=== PATIENT | male | born 1940 | race Caucasian/White ===

== ENCOUNTER 2018-07-29 12:54 | Emergency (ER) | payer MEDICARE, OTHER, SELFPAY ==
[2018-07-29 12:59] VITALS: BP 150/60; PULSE 73; RESP 16; TEMP 36.3; O2SAT 97
--- NOTE | 2018-07-29 13:25 | DI.CT_ITS ---
SYMPTOMS/DIAGNOSIS: LT FLANK PAIN RENAL COLIC CT: Routine examination was performed. Comparison is 12/18/14. There is a moderate sized hiatal hernia. Lack of IV contrast does limit evaluation of the abdominal and pelvic organs. The unenhanced visualized portions of the liver, spleen, gallbladder, pancreas and adrenal glands are unremarkable. The right kidney shows no evidence of nephrolithiasis, ureterolithiasis or hydronephrosis. There is a 6 mm stone in the distal left ureter approximately 2-3 cm proximal to the ureterovesical junction causing moderate hydronephrosis. There are a few small nonobstructing stones seen in the left kidney. The urinary bladder is intact. The reproductive organs are grossly unremarkable. There is diverticulosis of the colon but no evidence of acute diverticulitis. There is a normal appendix present. The bowel shows no evidence of obstruction or inflammation. Note is made of a large left inguinal hernia containing an unremarkable loop of colon. There is atherosclerosis of the abdominal aorta but no aneurysmal dilatation. No significant abdominal or pelvic adenopathy, ascites or pneumoperitoneum is seen. The bones are intact. There is an old L 5 compression fracture deformity. There is a small fat containing umbilical hernia. IMPRESSION: 1. 6 mm distal left ureteral stone causing moderate hydronephrosis. 2. Left nephrolithiasis. 3. Large left inguinal hernia containing an unremarkable loop of significant colon. The findings were discussed with the emergency department on the date of the examination.
--- NOTE | 2018-07-29 13:26 | ED.GENADUL_ITS ---
Discharge Plan Disposition Patient Disposition: HOME Discharge Details Chief Complaint: FlankPain Clinical Impression: Ureterolithiasis, Kidney stone on left side, Creatinine elevation Reason For Visit: kidney pain Primary Care Provider: Alfredo Burnett ED Provider: Kristofer Baez Home Meds and New Rx's Prescriptions: New tamsulosin [Flomax] 0.4 mg capsule 0.4 mg PO DAILY Qty: 7 RF: 0 Continued aspirin [Ecotrin Low Strength] 81 MG tablet,delayed release (DR/EC) 81 mg PO DAILY RF: 0 saw palmetto fruit 450 MG capsule 450 mg PO BID RF: 0 C-PAP RF: 0 CENTRUM SILVER ULTRA MEN'S TAB 1 EACH tablet 1 ea PO DAILY RF: 0 fluticasone [Flonase] 16 GM spray,suspension 1 - 2 spry NS DAILY PRN Qty: 3 RF: 4 One-Per-Day [place]-3 1 EACH capsule,delayed release(DR/EC) 1 ea PO DAILY RF: 0 potassium chloride 10 MEQ tablet extended release 1 tab PO BID Qty: 180 RF: 4 simvastatin 20 MG tablet 20 mg PO HS Qty: 90 RF: 4 omeprazole 20 MG capsule,delayed release(DR/EC) 20 mg PO QAM Qty: 90 RF: 4 loratadine 10 MG tablet 10 mg PO DAILY Qty: 90 RF: 4 metoprolol tartrate 25 MG tablet 25 mg PO BID Qty: 180 RF: 4 hydrochlorothiazide 12.5 MG tablet 12.5 mg PO DAILY Qty: 90 RF: 4 tramadol 50 MG tablet 50 mg PO HS PRN Qty: 60 RF: 3 acetaminophen [Acetaminophen Pain Relief] 500 mg Tablet 1 tab PO PRN PRNRF: 0 Discontinued meloxicam 7.5 MG tablet 7.5 mg PO DAILY Qty: 90 RF: 4 Discharge Instructions Instructions: Kidney Stones (ED) Additional Instructions: Please take tylenol over the counter - dose according to label. Your kidney function today was decreased. You should have repeat creatinine level checked in a few days. Please contact your primary care physician to arrange follow-up. You should stop taking meloxicam until you discuss this with your doctor. Should pain persist more than 1 week, please follow-up with urology. Return to the ER for any worsening or new concerning symptoms. Referrals: James Rodriguez MD [ [facility] STAFF PHYSICIAN] - Burnett,Alfredo J. [Primary Care Provider] - Medical Decision Making 78-year-old male with history of renal stones, here with left flank pain over the past 4 days. Afebrile. Abdomen benign. CT of the abdomen and pelvis was interpreted by radiology: IMPRESSION: 1. 6 mm distal left ureteral stone causing moderate hydronephrosis. 2. Left nephrolithiasis. 3. Large left inguinal hernia containing an unremarkable loop of significant colon. Urinalysis reviewed and consistent with kidney stone. Will give flomax. Creatinine is elevated today at 1.98. This is increased from 1.16 (11/30/17). Patient with hydrated with 1L of crystaloid. He is tolerating oral intake and was encourage to drink plenty of fluids. Plan for repeat Cr in a few days and follow-up with PCP. Hold meloxicam. I advised that if pain persists over the next few days he should follow-up with urology. Usual and customary discharge instructions were provided. HPI General Mode of arrival: ambulatory . Date/Time Provider Initiated Documentation: 07/29/18 13:02 . Limitations to Documentation: no limitations . Information obtained by: patient . HPI Narrative: 78yo m with history of renal stones, here with left flank pain. Pain is moderate. No modifiers. Pain persistent for the past 4 days. Sharp. Questionable mild intermittent urinary discomfort. No hematuria. No fever. Feels like prior kidney stone. Related Data Home Medications Medication Instructions Recorded Confirmed C-Pap 11/16/12 08/14/14 aspirin [Ecotrin Low Strength] 81 mg PO DAILY tab-cap 11/16/12 07/29/18 saw palmetto fruit 450 mg PO BID 11/16/12 07/29/18 Centrum Silver Ultra Men's Tab 1 ea PO DAILY 01/12/14 07/29/18 fluticasone [Flonase] 1 - 2 spry NS DAILY PRN #3 bottle 07/28/14 07/29/18 One-Per-Day [place]-3 1 ea PO DAILY 08/06/15 07/29/18 hydrochlorothiazide 12.5 mg PO DAILY #90 tab-cap 08/15/17 07/29/18 loratadine 10 mg PO DAILY #90 tab-cap 08/15/17 07/29/18 metoprolol tartrate 25 mg PO BID #180 tab-cap 08/15/17 07/29/18 omeprazole 20 mg PO QAM #90 tab-cap 08/15/17 07/29/18 potassium chloride 1 tab PO BID #180 tab-cap 08/15/17 07/29/18 simvastatin 20 mg PO HS #90 tab-cap 08/15/17 07/29/18 tramadol 50 mg PO HS PRN #60 tab-cap 18 07/29/18 acetaminophen [Acetaminophen Pain 1 tab PO PRN PRN 07/29/18 07/29/18 Relief] tamsulosin [Flomax] 0.4 mg PO DAILY #7 cap 07/29/18 Previous Rx's Medication Instructions Recorded hydrochlorothiazide 12.5 mg PO DAILY #90 tab-cap 08/15/17 loratadine 10 mg PO DAILY #90 tab-cap 08/15/17 metoprolol tartrate 25 mg PO BID #180 tab-cap 08/15/17 omeprazole 20 mg PO QAM #90 tab-cap 08/15/17 potassium chloride 1 tab PO BID #180 tab-cap 08/15/17 simvastatin 20 mg PO HS #90 tab-cap 08/15/17 tramadol 50 mg PO HS PRN #60 tab-cap 08/15/17 tamsulosin [Flomax] 0.4 mg PO DAILY #7 cap 07/29/18 Allergies Allergy/AdvReac Type Severity Reaction Status Date / Time birch Allergy Unknown Unverified 08/15/17 13:50 clindamycin AdvReac Unverified 07/29/18 13:05 DUST Allergy Unknown Uncoded 12/18/14 15:31 MOLDS AND SMUT Allergy Unknown Uncoded 12/18/14 15:31 PINE TREE Allergy Unknown Uncoded 12/18/14 15:31 RAGWEED Allergy Unknown Uncoded 12/18/14 15:31 General Stated Complaint: FlankPain MALLIKA: 3 Review of Systems Review of Systems All systems reviewed & are unremarkable except as noted in HPI and below Constitutional Denies fever(s) Gastrointestinal Reports nausea (intermittent) and Denies vomiting Genitourinary Reports as per HPI Musculoskeletal Reports back pain (chronic low back) PFSH Medical History HTN (hypertension) (Chronic) Kidney stones (Chronic) Surgical History Extraction of cataract HERNIA REPAIR Open Carpal Tunnel release (08/14/14) Family History Mother Diabetes Essential hypertension Heart disease Father Essential hypertension Personal history of malignant neoplasm Heart disease Hyperlipidemia Asthma Grandfather No problems noted. Grandfather No problems noted. Grandmother Essential hypertension Personal history of malignant neoplasm Heart disease Stroke Grandmother No problems noted. Sister Essential hypertension Hyperlipidemia Social History Smoking/Tobacco Use Status: Former Tobacco Use Exam Const General: cooperative and no acute distress HENMT Head: normocephalic and atraumatic Mouth: moist mucous membranes Eyes Conjunctivae: normal conjunctivae Sclera: normal sclerae EOM: EOM intact bilaterally Neck Neck: trachea midline and supple Resp Auscultation: clear to auscultation bilaterally, no rales, no rhonchi and no wheezes Cardio Jugular venous pressure: no JVD Rate: regular rate and not tachycardic Rhythm: regular rhythm GI Palpation: soft, not firm, no guarding, no masses, not rigid and nontender Back/Spine/Pelvis Back: CVA tenderness (left ) Skin General skin exam: no rashes or lesions noted Neuro General: alert, awake, oriented x3 and tone normal Extrem General: no edema Psych Appearance: grossly normal Mental Status: mental status grossly normal Speech and Movement: speech and movement normal Course Vital Signs Temperature 36.3 C L 07/29/18 12:59 Pulse 73 07/29/18 12:59 Respiratory Rate 16 07/29/18 12:59 Blood Pressure 150/60 H 07/29/18 12:59 Pulse Oximetry 97 07/29/18 12:59 Temperature 36.3 C L 07/29/18 12:59 Temperature Source Temporal Artery Scan 07/29/18 12:59 Pulse 73 07/29/18 12:59 Respiratory Rate 16 07/29/18 12:59 Blood Pressure 150/60 H 07/29/18 12:59 Pulse Oximetry 97 07/29/18 12:59 Oxygen Delivery Method Room Air 07/29/18 12:59 Oxygen Flow Rate 0 07/29/18 12:59 Pain Level 9 07/29/18 12:59
[2018-07-29] MEDS: Ketorolac 30 MG/ML VIAL (13:43)
[2018-07-29] MEDS: Lactated Ringers 1,000 ML 125 ML IV (13:44)
--- NOTE | 2018-07-29 13:47 | NUR.NOTE ---
patient medicated per MD order Nursing Note:
[2018-07-29 14:00] LABS: Abs Immature Grans 0.05 k/cumm (0.0-0.09); Absolute Basophil Count 0.03 k/cumm (0.0-0.2); Absolute Eosinophil Count 0.17 k/cumm (0.0-0.7); Absolute Monocyte Count 1.21 k/cumm (0.11-0.7); Absolute Neutrophil Count 9.29 k/cumm (1.2-6.7); Basophils % 0.2; Bilirubin Negative (Negative); Blood Small (Negative); Clarity Clear; Eosinophils % 1.3; Glucose Negative (Negative); HCT 41.1 % (40.0-50.0); HGB 14.1 g/dL (13.5-17.5); Immature Grans % 0.4; Ketones Negative (Negative); Leukocyte Esterase Negative (Negative); Lymphocytes % 15.6; Mean Corp. HGB Concentration 34.3 g/dL (32.0-36.0); Mean Corpuscular Volume 84.6 fL (80-95); Mean Platelet Volume 12.3 fL (8.0-11.0); Monocytes % 9.5; Nitrite Negative (Negative); Platelet Count 190 x1000/uL (130-400); RBC 4.86 m/cumm (4.50-6.00); RBC Distribution Width 13.3 % (11.8-14.1); Specific Gravity 1.015 (1.005-1.025); Urobilinogen 0.2 EU/dL (Up TO 0.2); White Blood Cell Count 12.73 k/cumm (4.4-10.8); pH 5.5 (5-8)
[2018-07-29 14:02] LABS: Absolute Lymphocyte Count 1.99 k/cumm (1.2-3.4)
--- NOTE | 2018-07-29 14:09 | NUR.NOTE ---
pain decreased to 1/10 Nursing Note:
[2018-07-29 14:10] VITALS: BP 144/75; PULSE 66; RESP 16; TEMP 37.1; O2SAT 96
[2018-07-29 14:19] LABS: Epithelial Cells Rare HPF (Negative)
[2018-07-29 14:20] LABS: ALT 33 U/L (12-78); AST 25 U/L (15-37); Albumin 3.5 g/dL (3.4-5.0); Alkaline Phosphatase 87 U/L (46-116); Anion Gap 10.7 mmol/L (3-11); BUN 21 mg/dL (7-18); Bacteria Few HPF (Negative); C & S Indicated? Yes; CO2 24.3 mmol/L (21.0-32.0); CREATININE 1.98 mg/dL (0.70-1.30); Calcium 9.5 mg/dL (8.5-10.1); Casts 0-2 Fine Granular LPF (Negative); Chloride 99 mmol/L (98-107); Crystals Negative HPF (Negative); Estimated GFR 32.69 (mL/min/1.73m2); Glucose 105 mg/dL (70-100); Mucus Negative (Negative); Potassium 3.9 mmol/L (3.5-5.1); Sodium 134 mmol/L (136-145); Total Protein 8.2 g/dL (6.4-8.2)
[2018-07-29 15:16] VITALS: BP 142/80; PULSE 61; RESP 14; TEMP 36.9; O2SAT 95
--- NOTE | 2018-07-29 15:17 | NUR.NOTE ---
patient reports pain 1/10 no nausea, will continue to monitor Nursing Note:
[2018-07-29] MEDS: Tamsulosin 0.4 MG CAPCR PO (15:29)
--- NOTE | 2018-07-29 16:01 | NUR.NOTE ---
IV dc'd, patient received discharge and follow up instruction per MD order. Nursing Note:
== END 2018-07-29 16:05 | disposition home or self-care (01) ==
PROVIDERS: Emergency Provider Student in an Organized Health Care Education/Training Program; PCP Family Medicine
DX: N13.2 Hydronephrosis with renal and ureteral calculous obstruction (principal); K40.90 Unilateral inguinal hernia, without obstruction or gangrene, not specified as recurrent; R94.4 Abnormal results of kidney function studies; Z87.442 Personal history of urinary calculi; I10 Essential (primary) hypertension
CPT/HCPCS: 36415; 80053; 96361; 96374; 99284; 74176; 81003; 81015; 85025; 87086; J1885

== ENCOUNTER 2018-08-01 14:17 | Outpatient (CLI) | payer MEDICARE, OTHER, SELFPAY ==
[2018-08-01 14:51] LABS: CREATININE 1.83 mg/dL (0.70-1.30)
== END 2018-08-01 14:37 ==
PROVIDERS: Nurse Practitioner Gerontology; PCP Family Medicine; Visit Provider Student in an Organized Health Care Education/Training Program
DX: R79.89 Other specified abnormal findings of blood chemistry (principal); N17.9 Acute kidney failure, unspecified; N20.0 Calculus of kidney; I12.9 Hypertensive chronic kidney disease with stage 1 through stage 4 chronic kidney disease, or unspecified chronic kidney disease
CPT/HCPCS: 36415; 99204; 99215; 82565

== ENCOUNTER 2018-08-05 09:00 | Outpatient (CLI) | payer MEDICARE, OTHER, SELFPAY | END 2018-08-05 09:20 | PROVIDERS: PCP Family Medicine; Visit Provider Urology | DX: N20.0 Calculus of kidney (principal); I10 Essential (primary) hypertension | CPT/HCPCS: 99213 ==

== ENCOUNTER 2018-09-13 00:04 | Outpatient (CLI) | payer MEDICARE, OTHER, SELFPAY ==
--- NOTE | 2018-09-13 14:24 | DI.US_ITS ---
SYMPTOM/DIAGNOSIS: MONITOR STONES, ? RESIDUAL HYDRONEPHROSIS, LT SIDED KIDNEY STONE, N20.0 RENAL ULTRASOUND: Routine examination. Comparison CT scan is 07/29/18. The right kidney measures 11.1 cm. long. No renal mass, calculus or obstruction is seen. There is blood flow seen to the right kidney. The left kidney measures 11.6 cm. long. No renal mass, calculus or obstruction is identified. There is blood flow seen to the left kidney. The prevoid urinary bladder volume is 90 cc's. There is a postvoid urinary bladder volume of 65 cc's. Both ureteral jets were visualized. There is a 1 cm. echogenic shadowing focus in the urinary bladder suspicious for a bladder stone. The prostatic volume is 45 cc's. IMPRESSION: Findings suspicious for a 1 cm. bladder stone. No evidence of hydronephrosis.
== END 2018-09-13 00:24 ==
PROVIDERS: PCP Family Medicine; Visit Provider Urology
DX: N21.0 Calculus in bladder
CPT/HCPCS: 76770; 99213

== ENCOUNTER 2019-05-09 00:33 | Outpatient (CLI) | payer MEDICARE, OTHER, SELFPAY ==
--- NOTE | 2019-05-09 14:32 | DI.US_ITS ---
EXAM: US RENAL CLINICAL HISTORY: monitor stones N21.0 CALCULUS IN BLADDER TECHNIQUE: Ultrasound performed using standard protocol. US renal from 09/13/2018 FINDINGS: The right kidney measures 10.6 cm in length. The left kidney measures 11.8 cm in length. No hydron ephrosis or nephrolithiasis is seen. There is no perinephric collection. No cyst or mass is identif ied. The prevoid bladder volume measures 74 cc. A 14 millimeter stone is noted in the bladder. The postvoid bladder volume measures 50 cc. The prostate is it is enlarged with a volume of 68 cc. IMPRESSION: 14 millimeter bladder stone. No evidence of hydronephrosis or nephrolithiasis.
== END 2019-05-09 00:53 ==
PROVIDERS: PCP Family Medicine; Visit Provider Urology
DX: N21.0 Calculus in bladder (principal); N40.0 Benign prostatic hyperplasia without lower urinary tract symptoms
CPT/HCPCS: 76770; 99213

== ENCOUNTER 2019-06-20 12:34 | Emergency (ER) | payer MEDICARE, OTHER, SELFPAY ==
[2019-06-20 12:48] VITALS: BP 141/73; PULSE 61; TEMP 36.7; O2SAT 96
--- NOTE | 2019-06-20 14:11 | W.ED.GENAD ---
Discharge Plan Disposition Patient Disposition: HOME Condition: Stable Discharge Details Chief Complaint: Sorethroat Clinical Impression: Sinusitis Primary Care Provider: Alfredo Burnett ED Provider: Elba Smiley Home Meds and New Rx's Prescriptions: New amoxicillin-pot clavulanate [Augmentin] 875-125 mg tablet 1 tab PO BID 10 Days Qty: 20 RF: 0 Continued omeprazole 20 mg capsule,delayed release(DR/EC) 20 mg PO QAM Qty: 90 RF: 4 potassium chloride 10 mEq tablet extended release 10 meq PO BID Qty: 180 RF: 4 simvastatin 20 mg tablet 20 mg PO HS Qty: 90 RF: 4 hydrochlorothiazide 12.5 mg tablet 12.5 mg PO DAILY Qty: 90 RF: 4 loratadine 10 mg tablet 10 mg PO DAILY Qty: 90 RF: 4 metoprolol tartrate 25 mg tablet 25 mg PO BID Qty: 180 RF: 4 aspirin [Ecotrin Low Strength] 81 MG tablet,delayed release (DR/EC) 81 mg PO DAILY RF: 0 saw palmetto fruit 450 MG capsule 450 mg PO BID RF: 0 C-PAP RF: 0 CENTRUM SILVER ULTRA MEN'S TAB 1 EACH tablet 1 ea PO DAILY RF: 0 fluticasone propionate [Flonase] 16 GM spray,suspension 1 - 2 spry NS DAILY PRN Qty: 3 RF: 4 tramadol 50 mg tablet 50 mg PO HS PRN Qty: 10 RF: 0 Discharge Instructions Instructions: Sinusitis (ED) Additional Instructions: Drink plenty of fluids and get plenty of rest. Take antibiotics until finished. Follow-up with your primary care doctor within the next week for reevaluation. Return to the emergency department if you develop any worsening or new concerning symptoms. Discharge Data Discharge Date/Time-TO BE ENTERED AT DEPARTURE: 06/20/19 14:26 Discharge Physician: Elba Smiley Medical Decision Making 79-year-old male presents with sore throat, right ear pain, nasal congestion and runny nose for the past 2 weeks. Unknown fevers. Some mild headache and cough but no shortness of breath or neck pain. Rapid strep negative on arrival. Normal oxygen saturation and respiratory rate. Afebrile. Patient appears nontoxic. Normal ear exam bilaterally. Normal oropharynx. Right frontal and maxillary sinus tenderness. No lymphadenopathy. Lungs clear. Discussed with patient that as his symptoms are lingering, he may have a bacterial sinus infection. He was advised to use saline nose spray and take the antibiotics until finished. Advised to follow-up with his primary care doctor. Usual and customary return precautions given prior to discharge. Medical Records Medical records reviewed: Yes I reviewed the patient's medical records. HPI General Mode of arrival: ambulatory. Date/Time Provider Initiated Documentation: 06/20/19 12:39. Limitations to Documentation: no limitations. Information obtained by: patient. HPI Narrative: Patient is an 79-year-old male who presents the ED with a complaint of sore throat, right ear pain, right facial pain, sinus congestion and runny nose for the past 2 weeks. Denies any relief with [id number] medications. Denies any known fever. Related Data Home Medications Medication Instructions Recorded Confirmed C-Pap 11/16/12 08/16/18 aspirin [Ecotrin Low Strength] 81 mg PO DAILY tab-cap 11/16/12 08/16/18 saw palmetto fruit 450 mg PO BID 11/16/12 06/20/19 Centrum Silver Ultra Men's Tab 1 ea PO DAILY 01/12/14 08/16/18 fluticasone propionate [Flonase] 1 - 2 spry NS DAILY PRN #3 bottle 07/28/14 08/16/18 hydrochlorothiazide 12.5 mg tablet 12.5 mg PO DAILY #90 tab-cap 08/16/18 06/20/19 loratadine 10 mg tablet 10 mg PO DAILY #90 tab-cap 08/16/18 06/20/19 metoprolol tartrate 25 mg tablet 25 mg PO BID #180 tab-cap 08/16/18 06/20/19 omeprazole 20 mg capsule,delayed 20 mg PO QAM #90 tab-cap 08/16/18 06/20/19 release potassium chloride 10 mEq 10 meq PO BID #180 tab-cap 08/16/18 06/20/19 tablet,extended release simvastatin 20 mg tablet 20 mg PO HS #90 tab-cap 08/16/18 06/20/19 tramadol 50 mg tablet 50 mg PO HS PRN #10 tab-cap 05/24/19 06/20/19 amoxicillin-pot clavulanate 1 tab PO BID 10 Days #20 tab 06/20/19 [Augmentin] Previous Rx's Medication Instructions Recorded hydrochlorothiazide 12.5 mg tablet 12.5 mg PO DAILY #90 tab-cap 08/16/18 loratadine 10 mg tablet 10 mg PO DAILY #90 tab-cap 08/16/18 metoprolol tartrate 25 mg tablet 25 mg PO BID #180 tab-cap 08/16/18 omeprazole 20 mg capsule,delayed 20 mg PO QAM #90 tab-cap 08/16/18 release potassium chloride 10 mEq 10 meq PO BID #180 tab-cap 08/16/18 tablet,extended release simvastatin 20 mg tablet 20 mg PO HS #90 tab-cap 08/16/18 tramadol 50 mg tablet 50 mg PO HS PRN #10 tab-cap 05/24/19 amoxicillin-pot clavulanate 1 tab PO BID 10 Days #20 tab 06/20/19 [Augmentin] Allergies Allergy/AdvReac Type Severity Reaction Status Date / Time birch Allergy Unknown Unverified 06/20/19 13:00 clindamycin AdvReac DIARRHEA Unverified 06/20/19 13:00 DUST Allergy Unknown Uncoded 06/20/19 13:00 MOLDS AND SMUT Allergy Unknown Uncoded 06/20/19 13:00 PINE TREE Allergy Unknown Uncoded 06/20/19 13:00 RAGWEED Allergy Unknown Uncoded 06/20/19 13:00 General Stated Complaint: Sorethroat MALLIKA: 4 Review of Systems All systems reviewed & are unremarkable except as noted in HPI and below Constitutional Constitutional: Reports as per HPI, Denies chills and Denies fever(s) Eyes Eyes: Denies blurry vision ENT Ears, Nose, Mouth, and Throat: Denies dizziness, Reports nasal congestion, Reports nasal discharge, Reports sore throat and Denies throat swelling Cardiovascular Cardiovascular: Denies chest pain and Denies dyspnea Respiratory Respiratory: Denies cough and Denies dyspnea Gastrointestinal Gastrointestinal: Denies abdominal pain, Denies diarrhea and Denies vomiting Genitourinary Genitourinary: Denies hematuria and Denies dysuria Musculoskeletal Musculoskeletal: Denies back pain and Denies numbness Integumentary/Breasts Skin/Breast: Denies lesions and Denies rash Neurologic Neurologic: Denies dizziness, Denies focal weakness and Denies numbness Allergic/Immunologic Allergic/Immunologic: Denies throat swelling [facility] Medical History (Updated 05/09/19 @ 15:33 by James Rodriguez MD) Bladder stone (Acute) HTN (hypertension) (Chronic) Kidney stones (Chronic) Surgical History Extraction of cataract B/L HERNIA REPAIR X 2 Open Carpal Tunnel release (08/14/14) LEFT/DR LUIS Social History (Updated 08/19/18 @ 08:38 by Jocy Rivera) Smoking/Tobacco Use Status: Former Tobacco Use Alcohol Intake: never Drug use: Never Caregiver/Support person: No Household members: none Pets and animals: No Sexually active: No Do you think of yourself as: straight/heterosexual Current gender identity: male What is your relationship status?: How often do you talk on the phone with friends or family?: three or more times per week How often do you get together with friends or relatives?: twice per week How often do you attend episcopal or taoism services?: 4 or more times per year Do you belong to any clubs or organized social groups?: yes Panel score (0-1 are the most socially isolated patients): 3 Duration: < 15 minutes/day Frequency: decline to answer Barby/Congregation: No preference Special barby needs: No Do you feel safe in your relationship?: Yes Exam Const General: cooperative, healthy appearing and no acute distress HENMT Head: normal to inspection Ears: hearing grossly normal bilaterally, external ears normal and TM's normal bilaterally Face and sinus: sinus tenderness frontal and maxillary Mouth: oral mucosae normal Throat: posterior oropharynx normal Eyes General: appearance normal, both eyes and all related structures EOM: EOM intact bilaterally Neck Neck: normal visual inspection and No submandibular swelling Lymphatic: no lymphadenopathy noted Resp Effort & Inspection: normal respiratory effort and able to speak in complete sentences Auscultation: clear to auscultation bilaterally Cardio Rate: regular rate Rhythm: regular rhythm Skin General skin exam: no rashes or lesions noted Neuro General: alert, awake and oriented x3 Cognition: normal cognition Speech: speech normal Motor: muscle tone normal throughout Sensory Exam: no sensory deficits noted Extrem General: normal to inspection, full ROM, normal capillary refill, no calf tenderness bilaterally and no edema Psych Appearance: grossly normal Mental Status: mental status grossly normal Speech and Movement: speech and movement normal Affect: normal affect Course Vital Signs Vital signs: Vital Signs Temperature 98.1 F 06/20/19 12:48 Pulse 61 06/20/19 12:48 Blood Pressure 141/73 H 06/20/19 12:48 Pulse Oximetry 96 06/20/19 12:48 Temperature 98.1 F 06/20/19 12:48 Temperature Source Skin 06/20/19 12:48 Pulse 61 06/20/19 12:48 Respiratory Effort Non-Labored 06/20/19 12:54 Blood Pressure 141/73 H 06/20/19 12:48 Blood Pressure Position Sitting 06/20/19 12:48 Pulse Oximetry 96 06/20/19 12:48 Oxygen Delivery Method Room Air 06/20/19 12:48 Oxygen Flow Rate 0 06/20/19 12:48 Pain Level 5 06/20/19 12:48 Lab/Test Results Lab/Test Results: 06/20/19 13:04 Pharynx Streptococcus Screen ([facility]RA) - Pending POC Strep Test-DRE(Rapid) Start: 06/20/19 13:02 Freq: .Rapid Strep Test Status: Active Protocol: Document 06/20/19 13:02 (Rec: 06/20/19 13:03 [id number]) Strep test-DRE(Rapid)-POC POC-Strep test-DRE (Rapid) Negative POC-Strep test-DRE (Rapid) Negative
== END 2019-06-20 14:26 | disposition home or self-care (01) ==
PROVIDERS: Emergency Provider Physician Assistant; PCP Family Medicine
DX: J01.90 Acute sinusitis, unspecified (principal); I10 Essential (primary) hypertension
CPT/HCPCS: 87880; 99283; 87081

== ENCOUNTER → 2019-08-01 15:12 | Outpatient (BNVA) | payer MEDICARE, OTHER, SELFPAY | PROVIDERS: PCP Family Medicine; Referring Provider Family Medicine; Visit Provider Urology | DX: N20.0 Calculus of kidney | CPT/HCPCS: 99213 ==

== ENCOUNTER 2020-02-27 02:39 | Outpatient (CLI) | payer MEDICARE, OTHER, SELFPAY ==
[2020-02-27 15:45] LABS: COMMENT (LAB VIEW ONLY) 180.42 mg/dL; Microalb ug/mg Crea 12.5 ug/mg Cr
[2020-02-27 16:37] LABS: CREATININE 0.98 mg/dL (0.70-1.30); Calculated LDL 29 mg/dL (<100); Cholesterol 115 mg/dL (<200); Glucose 93 mg/dL (74-106); HDL Cholesterol 49 mg/dL (40-60); Potassium 3.9 mmol/L (3.5-5.1); Triglyceride 188 mg/dL (<150)
== END 2020-02-27 02:59 ==
PROVIDERS: PCP Family Medicine; Visit Provider Family Medicine
DX: E78.5 Hyperlipidemia, unspecified (principal); I10 Essential (primary) hypertension; E11.65 Type 2 diabetes mellitus with hyperglycemia
CPT/HCPCS: 36415; 80061; 82947; 82043; 82565; 82570; 84132

== ENCOUNTER 2020-06-25 03:51 | Outpatient (CLI) | payer MEDICARE, OTHER, SELFPAY ==
--- NOTE | 2020-06-25 07:30 | DI.US_ITS ---
EXAM: US RENAL CLINICAL HISTORY: BLADDER STONE MONITORING.N21.0. TECHNIQUE: [place] scale, color and spectral Doppler were used. US US RENAL from 05/09/2019 FINDINGS: Renal size in cm: Right: 11.0. Left: 11.6. Echogenicity: Normal. Hydronephrosis: No. Cyst or mass: No. Nephrolithiasis: There is a 0.9 cm echogenic shadowing focus in the superior pole of the left kidney suspicious for nonobstructing stone. Other findings: There is increased echogenicity of the liver suggesting fatty infiltration. Bladder:At least 3 echogenic and shadowing foci are seen within the urinary bladder. The largest nolan sures 1.5 cm. Ureteral jets: Right: Not visualized on this examination. Left: Not visualized on this examination. Prevoid vol:53 cc Postvoid vol:34 cc Prostate: 58 cc Renal color flow: Symmetric and within normal limits. IMPRESSION: 1. Urinary bladder stones. The largest measures 1.5 cm. 2. Enlarged prostate gland. 3. Left nephrolithiasis. No hydronephrosis. 4. Fatty liver. DATA REPOSITORY:
== END 2020-06-25 04:11 ==
PROVIDERS: PCP Family Medicine; Visit Provider Urology
DX: N21.0 Calculus in bladder (principal); N40.0 Benign prostatic hyperplasia without lower urinary tract symptoms; N20.0 Calculus of kidney; K76.0 Fatty (change of) liver, not elsewhere classified
CPT/HCPCS: 76770

== ENCOUNTER → 2020-06-28 14:05 | Outpatient (BNVA) | payer MEDICARE, OTHER, SELFPAY | PROVIDERS: PCP Family Medicine; Referring Provider Family Medicine; Visit Provider Nurse Practitioner Gerontology | DX: N21.0 Calculus in bladder (principal); I10 Essential (primary) hypertension | CPT/HCPCS: 99213 ==

== ENCOUNTER 2020-08-21 11:20 | Emergency (ER) | payer MEDICARE, OTHER, SELFPAY ==
[2020-08-21] VITALS (10 sets, daily range): BP systolic 99–146; BP diastolic 60–73; PULSE 60–70; RESP 11–21; TEMP 36.5–36.8; O2SAT 92–96
--- NOTE | 2020-08-21 11:52 | ED.GENADUL_ITS ---
Discharge Plan Disposition Patient Disposition: HOME Condition: Stable Discharge Details Clinical Impression: Rib pain on right side Primary Care Provider: Alfredo Burnett ED Provider: Kristofer Baez Home Meds and New Rx's Prescriptions: Continued tramadol 50 mg tablet 50 mg PO Q6H PRN (Reason: pain) Qty: 50 RF: 0 hydrochlorothiazide 12.5 mg tablet 12.5 mg PO DAILY Qty: 90 RF: 4 loratadine 10 mg tablet 10 mg PO DAILY Qty: 90 RF: 4 metoprolol tartrate 25 mg tablet 25 mg PO BID Qty: 180 RF: 4 omeprazole 20 mg capsule,delayed release(DR/EC) 20 mg PO QAM Qty: 90 RF: 4 potassium chloride 10 mEq tablet extended release 10 meq PO BID Qty: 180 RF: 4 simvastatin 20 mg tablet 20 mg PO HS Qty: 90 RF: 4 tamsulosin 0.4 mg capsule 0.4 mg PO DAILY Qty: 10 RF: 0 aspirin [Ecotrin Low Strength] 81 MG tablet,delayed release (DR/EC) 81 mg PO DAILY RF: 0 saw palmetto 450 MG capsule 450 mg PO BID RF: 0 C-PAP RF: 0 CENTRUM SILVER ULTRA MEN'S TAB 1 EACH tablet 1 ea PO DAILY RF: 0 fluticasone propionate [Flonase] 16 GM spray,suspension 1 - 2 spry NS DAILY PRN Qty: 3 RF: 4 Discharge Instructions Additional Instructions: Please take your medication as prescribed. Please take ibuprofen over the counter. Take 600mg by mouth every 6 hours as needed for pain. Please contact your primary care physician to arrange follow-up this week. Return to the ER immediately for any worsening or new concerning symptoms. Referrals: Alfredo Burnett. [Primary Care Provider] - Medical Decision Making 80-year-old male presents with chief complaint of lower lateral mid back pain. Patient tender over his posterior lateral lower ribs. No rash. Abdominal exam benign. Bedside [id number] ultrasound was performed to visualize his gallbladder and kidney. No pericholecystic fluid, no cholelithiasis, normal gallbladder wall thickening. No fluid in Morison's pouch. Right kidney nondilated with no obvious kidney stones. Screening labs reviewed and nondiagnostic. Normal LFTs and lipase. I discussed diagnostic imaging the patient and reviewed risk benefits. He understands limitations of bedside [id number] ultrasound. He notes preference to monitor symptoms over the next few days and follow-up with his primary. He provided informed refusal of further diagnostic testing at this time including imaging. He understands there is pain were to persist additional diagnostics are certainly indicated. He has follow-up scheduled this week with his primary care physician. I did encourage him to keep this appointment and to return immediately should have any worsening or new concerning symptoms. HPI General Mode of arrival: ambulatory . Date/Time Provider Initiated Documentation: 08/21/20 11:22 . Limitations to Documentation: no limitations . Information obtained by: patient . HPI Narrative: 80-year-old male with history of remote kidney stone, low back pain, chronic pain syndrome, here with chief complaint of right lateral lower rib pain. Pain is mild to moderate and has persisted over the past week or so. Patient does not recall any specific injury. He denies associated rash or shortness of breath. No chest pain. He does note that he is concerned it could be his gallbladder. He denies abdominal pain or nausea vomiting. Related Data Home Medications Medication Instructions Recorded Confirmed C-Pap 11/16/12 06/28/20 aspirin [Ecotrin Low Strength] 81 mg PO DAILY tab-cap 11/16/12 08/21/20 saw palmetto 450 mg PO BID 11/16/12 08/21/20 Centrum Silver Ultra Men's Tab 1 ea PO DAILY 01/12/14 08/21/20 fluticasone propionate [Flonase] 1 - 2 spry NS DAILY PRN #3 bottle 07/28/14 08/21/20 tamsulosin 0.4 mg capsule 0.4 mg PO DAILY #10 cap 08/01/19 08/21/20 hydrochlorothiazide 12.5 mg tablet 12.5 mg PO DAILY #90 tab-cap 08/20/19 08/21/20 loratadine 10 mg tablet 10 mg PO DAILY #90 tab-cap 08/20/19 08/21/20 metoprolol tartrate 25 mg tablet 25 mg PO BID #180 tab-cap 08/20/19 08/21/20 omeprazole 20 mg capsule,delayed 20 mg PO QAM #90 tab-cap 08/20/19 08/21/20 release potassium chloride 10 mEq 10 meq PO BID #180 tab-cap 08/20/19 08/21/20 tablet,extended release simvastatin 20 mg tablet 20 mg PO HS #90 tab-cap 08/20/19 08/21/20 tramadol 50 mg tablet 50 mg PO Q6H PRN #50 tab 06/28/20 08/21/20 Previous Rx's Medication Instructions Recorded tamsulosin 0.4 mg capsule 0.4 mg PO DAILY #10 cap 08/01/19 hydrochlorothiazide 12.5 mg tablet 12.5 mg PO DAILY #90 tab-cap 08/20/19 loratadine 10 mg tablet 10 mg PO DAILY #90 tab-cap 08/20/19 metoprolol tartrate 25 mg tablet 25 mg PO BID #180 tab-cap 08/20/19 omeprazole 20 mg capsule,delayed 20 mg PO QAM #90 tab-cap 08/20/19 release potassium chloride 10 mEq 10 meq PO BID #180 tab-cap 08/20/19 tablet,extended release simvastatin 20 mg tablet 20 mg PO HS #90 tab-cap 08/20/19 tramadol 50 mg tablet 50 mg PO Q6H PRN #50 tab 06/28/20 Allergies Allergy/AdvReac Type Severity Reaction Status Date / Time birch Allergy Unknown Verified 08/21/20 11:29 chocolate flavor Allergy Diarrhea Unverified 08/21/20 11:30 clindamycin AdvReac DIARRHEA Verified 08/21/20 11:29 DUST Allergy Unknown Uncoded 08/21/20 11:29 MOLDS AND SMUT Allergy Unknown Uncoded 08/21/20 11:29 PINE TREE Allergy Unknown Uncoded 08/21/20 11:29 RAGWEED Allergy Unknown Uncoded 08/21/20 11:29 General Stated Complaint: GenMedical MALLIKA: 3 Review of Systems All systems reviewed & are unremarkable except as noted in HPI and below Constitutional Constitutional: Denies fever(s) Gastrointestinal Gastrointestinal: Reports as per HPI, Denies melena and Denies hematochezia Genitourinary Genitourinary: Denies hematuria and Denies dysuria PFSH Medical History Bladder stone Dental caries HTN (hypertension) Kidney stones Surgical History Extraction of cataract B/L HERNIA REPAIR X 2 Open Carpal Tunnel release (08/14/14) LEFT/DR LUIS Family History Mother Diabetes Essential hypertension Heart disease Father Essential hypertension Personal history of malignant neoplasm COLON/SKIN Heart disease Hyperlipidemia Asthma Maternal Grandmother Essential hypertension Heart disease Stroke Esophageal cancer Sister Essential hypertension Hyperlipidemia Social History Smoking/Tobacco Use Status: Former Tobacco Use Smoking risk assessment performed?: Yes Alcohol Intake: never Drug use: Never Substance use type: does not use Caregiver/Support person: No Household members: none Pets and animals: No Sexually active: No Do you think of yourself as: straight/heterosexual Current gender identity: male What is your relationship status?: How often do you talk on the phone with friends or family?: three or more times per week How often do you get together with friends or relatives?: twice per week How often do you attend hinduism or rastafarian services?: 4 or more times per year Do you belong to any clubs or organized social groups?: yes Panel score (0-1 are the most socially isolated patients): 3 Duration: < 15 minutes/day Frequency: decline to answer Barby/Sikh: No preference Special barby needs: No Do you feel safe at home: Yes Do you feel safe in your relationship?: Yes Exam Const General: cooperative and no acute distress HENMT Mouth: moist mucous membranes Eyes Conjunctivae: normal conjunctivae Sclera: normal sclerae Neck Neck: trachea midline and supple Chest Chest: no crepitus and tenderness rib (Right lower posterior lateral) Resp Auscultation: clear to auscultation bilaterally, no rales, no rhonchi and no wheezes Cardio Rate: regular rate and not tachycardic Rhythm: regular rhythm GI Palpation: soft, not firm, no guarding, no masses, not rigid and nontender Back/Spine/Pelvis Back: no CVA tenderness and No erythema Cervical Spine: No cervical spinal tenderness Thoracic/Lumbar Spine: No thoracic spinal tenderness Skin General skin exam: no rashes or lesions noted Neuro General: patient alert, patient awake, patient oriented x3 and tone normal Extrem General: no edema Psych Appearance: grossly normal Mental Status: mental status grossly normal Course Vital Signs Vital signs: Vital Signs Temperature 36.8 C 08/21/20 11:25 Pulse 70 08/21/20 11:25 Respiratory Rate 18 08/21/20 11:25 Blood Pressure 146/65 H 08/21/20 11:25 Pulse Oximetry 96 08/21/20 11:25 Temperature 36.8 C 08/21/20 11:25 Temperature Source Temporal Artery Scan 08/21/20 11:25 Pulse 70 08/21/20 11:25 Respiratory Rate 18 08/21/20 11:37 Respiratory Effort 08/21/20 11:37 Respiratory Depth Normal 08/21/20 11:37 Respiratory Pattern Normal 08/21/20 11:37 Blood Pressure 146/65 H 08/21/20 11:25 Blood Pressure Position Sitting 08/21/20 11:25 Pulse Oximetry 96 08/21/20 11:25 Oxygen Delivery Method Room Air 08/21/20 11:25 Oxygen Flow Rate 0 08/21/20 11:25 Pain Level 4 08/21/20 11:25
[2020-08-21 12:09] LABS: Bilirubin Negative (Negative); Blood Negative (Negative); Clarity Clear (Clear); Glucose Negative (Negative); Ketones Negative (Negative); Leukocyte Esterase Negative (Negative); Nitrite Negative (Negative); Specific Gravity 1.025 (1.005-1.025); Urobilinogen 0.2 EU/dL (Up TO 0.2); pH 5.5 (5-8)
[2020-08-21 12:23] LABS: Abs Immature Grans 0.01 10^3/uL (0.0-0.06); Absolute Basophil Count 0.04 10^3/uL (0.0-0.2); Absolute Eosinophil Count 0.63 10^3/uL (0.0-0.7); Absolute Lymphocyte Count 2.76 10^3/uL (1.2-3.4); Absolute Monocyte Count 0.62 10^3/uL (0.1-0.8); Absolute Neutrophil Count 4.51 10^3/uL (1.2-6.7); Basophils % 0.5; Eosinophils % 7.4; HCT 42.9 % (40.0-50.0); Immature Grans % 0.1; Lymphocytes % 32.2; MCH 28.1 pg (27.0-33.0); MCHC 32.6 % (32.0-36.0); Monocytes % 7.2; Neutrophils % 52.6; Nucleated RBC 0 %; Platelet Count 255 10^3/uL (130-400); RBC 4.99 10^6/uL (4.36-5.78); RDW 13.2 % (11.8-14.1); WBC 8.57 10^3/uL (4.4-10.8)
[2020-08-21 12:35] LABS: ALT 37 U/L (16-63); AST 27 U/L (15-37); Albumin 3.8 g/dL (3.4-5.0); Alkaline Phosphatase 73 U/L (46-116); Anion Gap 10.7 mmol/L (3-11); BUN 16 mg/dL (7-18); Bilirubin, Total 0.4 mg/dL (0.2-1.0); CO2 26.3 mmol/L (21.0-32.0); Calcium 9.4 mg/dL (8.5-10.1); Chloride 105 mmol/L (98-107); Glucose 112 mg/dL (74-106); Lipase 333 U/L (73-393); Potassium 3.5 mmol/L (3.5-5.1); Sodium 142 mmol/L (136-145); Total Protein 8.1 g/dL (6.4-8.2)
== END 2020-08-21 14:00 | disposition home or self-care (01) ==
PROVIDERS: Emergency Provider Student in an Organized Health Care Education/Training Program; PCP Family Medicine
DX: R07.81 Pleurodynia (principal)
CPT/HCPCS: 80053; 83690; 99282; 81003; 85025

== ENCOUNTER 2021-06-24 01:27 | Outpatient (CLI) | payer MEDICARE, OTHER, SELFPAY ==
--- NOTE | 2021-06-24 07:00 | DI.US_ITS ---
Exam(s) US RENAL EXAM: US RENAL CLINICAL HISTORY: monitoring bladder/kidney stone,n21.0. TECHNIQUE: [place] scale, color and spectral Doppler were used. COMPARISON: No exams were available for comparison FINDINGS: Renal size in cm: Right: 10.8. Left: 11.7. Echogenicity: Normal. Hydronephrosis: No. Cyst or mass: No. Nephrolithiasis: Left nephrolithiasis. The largest stone is in the midpole. It measures 7 mm. No h ydronephrosis. Other findings: None. Bladder:Normal. Bladder stones are present. The largest measures 1.5 cm. Ureteral jets: Right: Not visualized on this examination. Left: Not visualized on this examination. Prevoid vol:60 cc Postvoid vol:The patient was unable to void at this examination. Prostate: 74 cc Renal color flow: Symmetric and within normal limits. IMPRESSION: 1. Bladder and left renal stones. No hydronephrosis. 2. Enlarged prostate gland. DATA REPOSITORY:
== END 2021-06-24 01:47 ==
PROVIDERS: PCP Family Medicine; Visit Provider Nurse Practitioner Gerontology
DX: N21.0 Calculus in bladder (principal); N20.0 Calculus of kidney; N40.0 Benign prostatic hyperplasia without lower urinary tract symptoms
CPT/HCPCS: 76770

== ENCOUNTER → 2021-06-30 09:49 | Outpatient (BNVA) | payer MEDICARE, OTHER, SELFPAY | PROVIDERS: PCP Family Medicine; Referring Provider Family Medicine; Visit Provider Nurse Practitioner Gerontology | DX: N21.0 Calculus in bladder (principal); Z71.2 Person consulting for explanation of examination or test findings | CPT/HCPCS: 99213 ==

== ENCOUNTER 2022-01-17 02:50 | Outpatient (CLI) | payer MEDICARE, OTHER, SELFPAY ==
[2022-01-17 13:41] LABS: CREATININE 1.4 mg/dL (0.70-1.30); Potassium 3.6 mmol/L (3.5-5.1)
[2022-01-19 10:34] LABS: Lab Add On Test DONE
[2022-01-19 10:47] LABS: BUN 19 mg/dL (7-18)
== END 2022-01-17 02:51 | disposition home or self-care (01) ==
LOC: LBO 02:50
PROVIDERS: PCP Family Medicine; Visit Provider Family Medicine
DX: I10 Essential (primary) hypertension (principal); R73.9 Hyperglycemia, unspecified
CPT/HCPCS: 36415; 84520; 82565; 83036; 84132

== ENCOUNTER 2022-07-16 05:34 | Inpatient (IN) | payer MEDICARE, OTHER, SELFPAY ==
[2022-07-16] VITALS (21 sets, daily range): BP systolic 117–180; BP diastolic 54–97; PULSE 67–103; RESP 9–24; TEMP 36.1–36.6; O2SAT 95–99
--- NOTE | 2022-07-16 05:15 | DI.CT_ITS ---
Exam(s) CT ABDOMEN PELVIS W EXAM: CT ABDOMEN PELVIS W CLINICAL HISTORY: lower gi bleed, llq pain. TECHNIQUE: Imaging Protocol: Axial computed tomography images with coronal and sagittal reformatted images were created and reviewed CONTRAST MATERIAL: Intravenous: Omnipaque 350 Contrast volume:100 ml Oral: no FINDINGS: ABDOMEN: Lung Bases: Hiatal hernia containing fundus of stomach as well as fat. Liver: Normal density. No measurable mass. Gallbladder and biliary tract: No radiodense calculus or dilation. Pancreas: Normal density, no abnormal calcifications or inflammatory process. Spleen: Normal. Kidneys: Normal size, contour and axis. No radiodense stones or obstructive uropathy. No masses seen. Adrenal glands: No masses seen. Abdominal Aorta: Abdominal portion non-dilated. Soft tissues: Small fatty congenital in umbilical hernia. PELVIS: Bladder: Mild wall thickening. Multiple calculi the largest measuring 2 cm..No focal mass. Bowel: Diverticulosis along the descending sigmoid colon. Redundant sigmoid with inflammation inflam mation at apex, consistent with mild diverticulitis. No perforation or abscess. No obstruction . Ap pendix normal. Fatty containing left inguinal hernia and again contains a loop of colon. Peritoneal cavity: No ascites, collection. Bones: Old L5 compression fracture. Reproductive organs: Prostate markedly in large. Lymph nodes: Unremarkable. Impression: Mild diverticulitis sigmoid colon. Multiple bladder calculi. No renal calculi or hydronephrosis. RADIATION DOSE DELIVERED: 1,121.61mGy.cm Total DLP DATA REPOSITORY: All CT scans at this facility are submitted to the National Radiology Data Registry (NRDR) Dose Index Registry (DIR) with the [employer] ([employer]). RADIATION OPTIMIZATION: All CT scans at this facility use at least one of these dose optimization te chniques: automated exposure control; mA and/or kV adjustment per patient size (includes targeted exa ms where dose is matched to clinical indication); or iterative reconstruction.
--- NOTE | 2022-07-16 05:21 | ED.GENADUL_ITS ---
Discharge Plan Disposition Patient Disposition: Admit to [facility] Condition: Stable Discharge Details Chief Complaint: GI Bleed Clinical Impression: Diverticulitis, Acute GI bleeding Primary Care Provider: Alfredo Burnett ED Provider: Benji Douglas Home Meds and New Rx's Prescriptions: No Action flu vac qs (6 ms up) CD 60 mcg (15 mcg x 4)/0.5 mL suspension 0.5 ml IM ONCE Qty: 0.5 0RF aspirin [Ecotrin Low Strength] 81 MG tablet,delayed release (DR/EC) 81 mg PO DAILY saw palmetto 450 MG capsule 450 mg PO BID CENTRUM SILVER ULTRA MEN'S TAB 1 EACH tablet 1 ea PO DAILY fluticasone propionate [Flonase] 16 GM spray,suspension 1 - 2 spry NS DAILY PRN Qty: 3 tramadol 50 mg tablet 50 mg PO Q6H PRN (Reason: pain) Qty: 50 0RF Rx Instructions: may take along with tylenol or NSAIDs loratadine 10 mg tablet 10 mg PO DAILY Qty: 90 4RF Rx Instructions: 1 TAB DAILY potassium chloride 10 mEq tablet extended release 10 meq PO BID Qty: 180 4RF Rx Instructions: Klor Con brand medically necessary (it is the only kind he can swallow) simvastatin 20 mg tablet 20 mg PO HS Qty: 90 4RF Rx Instructions: 1 TAB hs omeprazole 20 mg capsule,delayed release(DR/EC) 20 mg PO QAM Qty: 90 4RF Rx Instructions: 1 TAB QAM hydrochlorothiazide 12.5 mg tablet 12.5 mg PO DAILY Qty: 90 4RF Rx Instructions: 1 TAB DAILY metoprolol tartrate 25 mg tablet 25 mg PO BID Qty: 180 4RF Rx Instructions: 1 TAB BID Medical Decision Making 82-year-old male with a past medical history of cardiovascular disease, hypertension, high cholesterol, obstructive sleep apnea who takes a baby aspirin every day presents today for evaluation of GI bleed. Patient states that at midnight he began having mild left lower quadrant achiness, and subsequently had 8 episodes of bright red blood per rectum. He contacted EMS at 3 AM because he felt lightheaded. He denies any syncope. EMS brought the patient in for further evaluation. Patient denies any history of GI bleed. He denies any vomiting. He denies any new foods. He denies any epigastric pain. No new medications. No other complaints at this time. No known modifying factors. Patient does state that he has a family history of colon cancer, and he does not recall the last time he had a colonoscopy but says it was many years ago. Exam demonstrates very minimal achiness in the left lower abdominal quadrant. Dried red blood in the rectum. No active hemorrhage. Differential is highest for lower GI bleed. We will type and cross, start Protonix and famotidine and Protonix drip, gently rehydrate, get a CT scan with contrast to evaluate for diverticulitis, monitor closely and reassess. 7:09 AM Laboratory work-up has returned, vital signs stable, blood pressure stable, hemoglobin is 11.3 which is a 3-4 point drop from is normal at 14. However his last CBC was over a year ago. Electrolytes stable, platelets normal. CT scan s hows evidence of uncomplicated diverticulitis in the proximal sigmoid colon. We will start Cipro Flagyl. I did contact surgery and spoke with Dr. Luis. He states that he will remain on as consult as needed. He does not see any indication for emergent surgical intervention at this time. Hemoglobin is stable. I did contact the hospitalist Dr. Mireles. He agrees with the assessment and plan. I have extensively reviewed the treatment plan with the patient. I have addressed all patient concerns at this time. I have also discussed the plan with the admitting physician and they agree with the current assessment and plan and have agreed to assume responsibility for the patient. All parties demonstrate verbal understanding and agreement with our assessment and plan at this time. The documentation in this chart was dictated using [employer] dictation software. Please excuse any dictation errors. FINDINGS: Lungs: Mild chronic subpleural scarring in the medial right lower lobe. Minimal linear subsegmental atelectasis versus scarring in the right middle lobe. No pleural effusions. Liver: Unremarkable. Gallbladder and bile ducts: Unremarkable. No calcified gallstones. No intrahepatic or extrahepatic biliary ductal dilation. Pancreas: Unremarkable. Spleen: Unremarkable. The spleen is normal in size. Adrenal glands: Unremarkable. Kidneys and ureters: No hydronephrosis or hydroureter. Normal and symmetric renal enhancement. No suspicious renal masses. A small focus of cortical hypoattenuation in the lower pole of the left kidney measures less than 1 cm, too small to characterize. Stomach and bowel: The stomach is nondilated. There is a small hiatal hernia. The small and large bowel are normal in caliber. Though this study was not performed as per GI bleed protocol, there is no contrast extravasation into the bowel to suggest active hemorrhage at the time of imaging. The sigmoid colon is high-riding and quite redundant, extending into the left mid abdomen. Diverticula are seen throughout the colon. There is localized inflammatory fat stranding about a large diverticulum in the proximal sigmoid colon (see series 5, images [id number] and coronal images 33- 37), compatible with diverticulitis. Appendix: A nondilated appendix is identified. Intraperitoneal space: Unremarkable. No ascites, fluid collection, or pneumoperitoneum. Retroperitoneal space: Unremarkable. No retroperitoneal collection or mass. Vasculature: Mild atherosclerotic vascular calcifications. Normal caliber abdominal aorta. Lymph nodes: No pathologically enlarged lymph nodes. Urinary bladder: Multiple nonobstructing calculi are newly identified within the bladder, the largest measuring up to 2.1 cm. Reproductive: Moderately enlarged prostate gland with mass effect on the base of the urinary bladder. Bones/joints: Diffuse osseous demineralization. Degenerative changes. Moderate chronic loss of height of the L5 vertebral body. Soft tissues: Small fat-containing right inguinal hernia. Moderate-sized left inguinal hernia containing fat and a short segment of nonobstructed sigmoid colon. Small fat-containing umbilical hernia. IMPRESSION: 1. Acute uncomplicated diverticulitis in the proximal sigmoid colon. 2. Multiple nonobstructing calculi in the urinary bladder, the largest 2.1 cm, are new since 07/29/2018. 3. Additional stable chronic and incidental findings are discussed in the body of the report. Thank you for allowing us to participate in the care of your patient. Dictated and Authenticated by: Keyla Krishnamurthy MD 07/16/2022 7:07 AM Eastern Time ([place] & [place]) HPI General Date/Time Provider Initiated Documentation: 07/16/22 07:08 . HPI Narrative: 82-year-old male with a past medical history of cardiovascular disease, hypertension, high cholesterol, obstructive sleep apnea who takes a baby aspirin every day presents today for evaluation of GI bleed. Patient states that at midnight he began having mild left lower quadrant achiness, and subsequently had 8 episodes of bright red blood per rectum. He contacted EMS at 3 AM because he felt lightheaded. He denies any syncope. EMS brought the patient in for further evaluation. Patient denies any history of GI bleed. He denies any vomiting. He denies any new foods. He denies any epigastric pain. No new medications. No other complaints at this time. No known modifying factors. Patient does state that he has a family history of colon cancer, and he does not recall the last time he had a colonoscopy but says it was many years ago. Related Data Home Medications Medication Instructions Recorded Confirmed aspirin 81 mg tablet,delayed 81 mg PO DAILY 11/16/12 07/16/22 release (Ecotrin Low Strength) saw palmetto 450 mg capsule 450 mg PO BID 11/16/12 07/16/22 Centrum Silver Ultra Men's Tab 1 ea PO DAILY 01/12/14 07/16/22 fluticasone propionate 50 1 - 2 spry NS DAILY PRN ##3 07/28/14 07/16/22 mcg/actuation nasal spray,suspension (Flonase) loratadine 10 mg tablet 10 mg PO DAILY #90 tab-caps 09/01/21 07/16/22 tramadol 50 mg tablet 50 mg PO Q6H PRN pain #50 tabs 09/01/21 07/16/22 hydrochlorothiazide 12.5 mg tablet 12.5 mg PO DAILY #90 tab-caps 09/12/21 07/16/22 metoprolol tartrate 25 mg tablet 25 mg PO BID #180 tab-caps 09/12/21 07/16/22 omeprazole 20 mg capsule,delayed 20 mg PO QAM #90 tab-caps 09/12/21 07/16/22 release potassium chloride 10 mEq 10 meq PO BID #180 tab-caps 09/12/21 07/16/22 tablet,extended release simvastatin 20 mg tablet 20 mg PO HS #90 tab-caps 09/12/21 07/16/22 Previous Rx's Medication Instructions Recorded loratadine 10 mg tablet 10 mg PO DAILY #90 tab-caps 09/01/21 tramadol 50 mg tablet 50 mg PO Q6H PRN pain #50 tabs 09/01/21 hydrochlorothiazide 12.5 mg tablet 12.5 mg PO DAILY #90 tab-caps 09/12/21 metoprolol tartrate 25 mg tablet 25 mg PO BID #180 tab-caps 09/12/21 omeprazole 20 mg capsule,delayed 20 mg PO QAM #90 tab-caps 09/12/21 release potassium chloride 10 mEq 10 meq PO BID #180 tab-caps 09/12/21 tablet,extended release simvastatin 20 mg tablet 20 mg PO HS #90 tab-caps 09/12/21 Allergies Allergy/AdvReac Type Severity Reaction Status Date / Time birch Allergy Unknown Verified 07/16/22 05:18 chocolate flavor AdvReac Diarrhea Verified 07/16/22 07:01 clindamycin AdvReac DIARRHEA Verified 07/16/22 05:18 DUST Allergy Unknown Uncoded 07/16/22 05:18 MOLDS AND SMUT Allergy Unknown Uncoded 07/16/22 05:18 PINE TREE Allergy Unknown Uncoded 07/16/22 05:18 RAGWEED Allergy Unknown Uncoded 07/16/22 05:18 General Stated Complaint: GI Bleed MALLIKA: 2 Review of Systems All systems reviewed & are unremarkable except as noted in HPI and below PFSH All Active Problems (Updated 07/16/22 @ 07:35 by Benji Douglas DO) Diverticulitis (Chronic) Acute GI bleeding (Acute) Ceruminosis (Acute) Dental caries (Acute) Chronic pain syndrome (Chronic) Bladder stone (Acute) Calcium nephrolithiasis (Acute) w/ hydronephrosis and BRIELLE (creat 1.8) Diverticulosis (Acute ~07/2018) Left inguinal hernia (Acute ~07/2018) 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 Allergic rhinitis (Acute) Essential hypertension (Acute 07/17/13) Gastroesophageal reflux (Acute) Hyperlipidemia (Acute) Joint pain (Acute) DJD Kidney stone on left side (Acute 12/18/14) 12/18/14 [facility] [place] stented and removed 07/29/18 WITH HYDRONEPHROSIS Lumbago (Acute) L 5 compression fx; Low back pain (Acute) L 5 compression fx; Neoplasm of unspecified nature of bone, soft tissue, 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) Obstructive sleep apnea syndrome (Acute) severe; CPAP (inital studies 2007 [facility] and [facility] [place]) Skin lesion of cheek (Acute 08/06/15) Medical History HTN (hypertension) Kidney stones Surgical History Extraction of cataract B/L HERNIA REPAIR X 2 Open Carpal Tunnel release (08/14/14) LEFT/DR LUIS Family History Mother Diabetes Essential hypertension Heart disease Father Essential hypertension Personal history of malignant neoplasm COLON/SKIN Heart disease Hyperlipidemia Asthma Maternal Grandmother Essential hypertension Heart disease Stroke Esophageal cancer Sister Essential hypertension Hyperlipidemia Social History Smoking/Tobacco Use Status: Former Tobacco Use Second Hand Exposure: Yes Smoking risk assessment performed?: Yes Alcohol Intake: never Drug use: Never Substance use type: does not use Caregiver/Support person: No Household members: none Communication Needs: None Pets and animals: No Sexually active: No Do you think of yourself as: straight/heterosexual Current gender identity: male How often do you talk on the phone with friends or family?: three or more times per week How often do you attend spiritism or confucianist services?: 4 or more times per year Do you belong to any clubs or organized social groups?: no Panel score (0-1 are the most socially isolated patients): 2 Duration: < 15 minutes/day Frequency: 1-2 times per week Barby/Baptist: Mormon Special barby needs: No Do you feel safe at home: Yes Do you feel safe in your relationship?: Yes Exam Narrative Exam Narrative: 1.Const: Well-nourished, Well-developed, appearing stated age 2.Eyes: PERRL, no conjunctival injection, and symmetrical lids. 3.ENT: Atraumatic external nose and ears. Moist MM. Neck: Symmetric, trachea midline, No thyromegaly. 4.CVS: +S1/S2, No murmurs or gallops. Peripheral pulses 2+ and equal in all extremities. Brisk capillary refill in all extremities. 5.RESP: Unlabored respiratory effort. Clear to auscultation bilaterally. No wheezes rales or rhonchi 6.GI: Soft, Nontender/Nondistended, No hepatosplenomegaly. No guarding or rebound. Mild achiness in the left lower quadrant, but no significant pain. Rectal exam demonstrates present dried red blood. No tenderness. Small skin tags are present. 7.MSK: Normocephalic/Atraumatic, Extremities w/o deformity or ttp No cyanosis or clubbing, Normal movement of all extremities 8.Skin: Warm, Dry. No rashes or lesions. 9.Neuro: commercial assistant II-XII grossly intact. Sensation grossly intact, no focal neurologic deficits. 10.Psych: (AAO) x3. Appropriate mood and affect Course Vital Signs Vital signs: Vital Signs Temperature 36.1 C L 07/16/22 05:02 Pulse 94 H 07/16/22 05:02 Respiratory Rate 16 07/16/22 05:02 Blood Pressure 141/87 H 07/16/22 05:02 Pulse Oximetry 99 07/16/22 05:02 Temperature 36.1 C L 07/16/22 05:02 Temperature Source Temporal Artery Scan 07/16/22 05:02 Pulse 94 H 07/16/22 05:02 Respiratory Rate 16 07/16/22 05:02 Respiratory Effort Non-Labored 07/16/22 05:02 Blood Pressure 141/87 H 07/16/22 05:02 Blood Pressure Position Supine 07/16/22 05:02 Pulse Oximetry 99 07/16/22 05:02 Oxygen Delivery Method Room Air 07/16/22 05:02 Oxygen Flow Rate 0 07/16/22 05:02 Pain Level 0 07/16/22 05:02
[2022-07-16 05:42] LABS: Abs Immature Grans 0.05 10^3/uL (0.0-0.06); Absolute Basophil Count 0.04 10^3/uL (0.0-0.2); Absolute Lymphocyte Count 2.08 10^3/uL (1.2-3.4); Absolute Monocyte Count 0.61 10^3/uL (0.1-0.8); Basophils % 0.3; Eosinophils % 1.6; HCT 34.9 % (40.0-50.0); HGB 11.3 g/dL (13.5-17.5); Immature Grans % 0.4; Lymphocytes % 16.3; MCH 28.1 pg (27.0-33.0); MCHC 32.4 % (32.0-36.0); MCV 87 fL (80-95); MPV 12.1 fL (8.0-11.0); Monocytes % 4.8; Neutrophils % 76.6; Platelet Count 261 10^3/uL (130-400); RBC 4.02 10^6/uL (4.36-5.78); RDW 13.5 % (11.8-14.1); RDW-SD 42.8 fL; WBC 12.78 10^3/uL (4.4-10.8)
[2022-07-16 05:44] LABS: Absolute Neutrophil Count 9.79 10^3/uL (1.2-6.7)
[2022-07-16] MEDS: Normal Saline 500 ML IV (05:52)
[2022-07-16 05:58] LABS: INR 1.1 (0.9-1.1); PTT Activated 23.2 sec (21.0-27.5)
[2022-07-16 05:59] LABS: ALT 27 U/L (16-63); AST 21 U/L (15-37); Albumin 3.5 g/dL (3.4-5.0); Alkaline Phosphatase 74 U/L (46-116); BUN 16 mg/dL (7-18); Bilirubin, Total 0.4 mg/dL (0.2-1.0); CREATININE 1.4 mg/dL (0.70-1.30); Calcium 9.1 mg/dL (8.5-10.1); Chloride 106 mmol/L (98-107); Estimated GFR 49.56 (mL/min/1.73m2); Glucose 140 mg/dL (74-106); Potassium 3.7 mmol/L (3.5-5.1); Sodium 142 mmol/L (136-145); Total Protein 6.8 g/dL (6.4-8.2)
[2022-07-16] MEDS: PANTOPRAZOLE 80 MG in Normal Saline 100 ML 10 MG IV (06:06)
[2022-07-16] MEDS: FAMOTIDINE 20 MG in Normal Saline 100 ML 400 MG IVPB (06:25)
[2022-07-16] MEDS: Pantoprazole 40 MG VIAL IVP (06:36)
[2022-07-16] MEDS: Omnipaque 350 MG/ML 100 ML BTL IJ (06:40)
[2022-07-16] MEDS: Normal Saline - Diluent 50 ML VIAL IJ (06:42)
--- NOTE | 2022-07-16 07:07 | DI.VRAD_ITS ---
PROCEDURE INFORMATION: Exam: CT Abdomen And Pelvis With Contrast Exam date and time: 07/16/2022 6:41 AM Age: 82 years old Clinical indication: Other: Lower gi bleed llq pain TECHNIQUE: Imaging protocol: Computed tomography of the abdomen and pelvis with contrast. Contrast material: 350; Contrast volume: 100 ml; Contrast route: INTRAVENOUS (IV); COMPARISON: CT Abdomen^RENAL COLIC (Adult) 07/29/2018 2:01 PM FINDINGS: Lungs: Mild chronic subpleural scarring in the medial right lower lobe. Minimal linear subsegmental atelectasis versus scarring in the right middle lobe. No pleural effusions. Liver: Unremarkable. Gallbladder and bile ducts: Unremarkable. No calcified gallstones. No intrahepatic or extrahepatic biliary ductal dilation. Pancreas: Unremarkable. Spleen: Unremarkable. The spleen is normal in size. Adrenal glands: Unremarkable. Kidneys and ureters: No hydronephrosis or hydroureter. Normal and symmetric renal enhancement. No suspicious renal masses. A small focus of cortical hypoattenuation in the lower pole of the left kidney measures less than 1 cm, too small to characterize. Stomach and bowel: The stomach is nondilated. There is a small hiatal hernia. The small and large bowel are normal in caliber. Though this study was not performed as per GI bleed protocol, there is no contrast extravasation into the bowel to suggest active hemorrhage at the time of imaging. The sigmoid colon is high-riding and quite redundant, extending into the left mid abdomen. Diverticula are seen throughout the colon. There is localized inflammatory fat stranding about a large diverticulum in the proximal sigmoid colon (see series 5, images [id number] and coronal images 33-37), compatible with diverticulitis. Appendix: A nondilated appendix is identified. Intraperitoneal space: Unremarkable. No ascites, fluid collection, or pneumoperitoneum. Retroperitoneal space: Unremarkable. No retroperitoneal collection or mass. Vasculature: Mild atherosclerotic vascular calcifications. Normal caliber abdominal aorta. Lymph nodes: No pathologically enlarged lymph nodes. Urinary bladder: Multiple nonobstructing calculi are newly identified within the bladder, the largest measuring up to 2.1 cm. Reproductive: Moderately enlarged prostate gland with mass effect on the base of the urinary bladder. Bones/joints: Diffuse osseous demineralization. Degenerative changes. Moderate chronic loss of height of the L5 vertebral body. Soft tissues: Small fat-containing right inguinal hernia. Moderate-sized left inguinal hernia containing fat and a short segment of nonobstructed sigmoid colon. Small fat-containing umbilical hernia. IMPRESSION: 1. Acute uncomplicated diverticulitis in the proximal sigmoid colon. 2. Multiple nonobstructing calculi in the urinary bladder, the largest 2.1 cm, are new since 07/29/2018. 3. Additional stable chronic and incidental findings are discussed in the body of the report. Dictated and Authenticated by: Keyla Krishnamurthy MD. Ordering:FEROZ Leblanc MD
--- NOTE | 2022-07-16 07:12 | W.SURGCON ---
Date of service: 07/16/22 Time of Service: 07:29 Assessment and Plan Assessment and plan (1) Acute GI bleeding: Status: Acute Assessment and plan: 82-year-old man with GI bleeding of unknown etiology or significance. He is hemodynamically stable. He is on aspirin but otherwise his coagulation profile appears normal. Clinically his bleeding does not appear to be ongoing or may have been a 1?time event that stopped spontaneously and the old blood is still evacuating. Diagnosis is very broad and despite the CT scan findings still includes foregut etiologies such as ulcer disease but of course includes underlying GI malignancy, diverticular disease and even hemorrhoidal bleeding as possible explanations. If the bleeding has stopped, upper and lower endoscopy should be performed soon, but not emergently. Slow GI bleeding should be managed by fixing any coagulopathy and transfusing as necessary for hemoglobin greater than 7 for most patients and hemoglobin greater than 9 for patients with cardiac risk. In this particular man I would recommend keeping his hemoglobin greater than 9. Endoscopic intervention warranted for bleeding that does not respond to the medical interventions. Exploratory surgery is an absolute last resort for life?saving purposes only this rarely necessary. Surgery will follow along on this case. Recommend admitting to the medical service with IV PPI, n.p.o. except medications and serial hemoglobin every 6 hours. Hold aspirin until patient proves greater than 24 hours of stabilization. Transfuse as needed. Medical team should address patient's CODE STATUS in detail with him since his condition has the potential to result in acute decompensation. History of Present Illness Narrative: The patient is an 82-year-old man who developed bleeding per rectum last night and called EMS. EMS brought him to the emergency department. His lab work showed a slightly drop in hemoglobin. He has been hemodynamically stable and has not had repeated bleeding. He did not get any blood transfused. A CT and was done which showed an isolated diverticulum with some inflammation around it in the sigmoid colon. This is the first time this is ever happened to him. He denies any abdominal pain or any other symptom. He otherwise has normal bowel movements and life has been usual and normal for him leading up to this. He did not eat anything strange. He has not been sick. He has not been having any fevers. He takes a baby aspirin. He does not have a history of ulcers. His last colonoscopy he thinks was more than 10 years ago. He thinks that his father from colon cancer at a very old age. Surgical history significant for left inguinal hernia repair. Medical history significant for overweight, hyperlipidemia, GERD, FADUMO, kidney stones, diverticular disease COUNT INCLUDES THE [facility] All Active Problems (Updated 07/16/22 @ 07:35 by Benji Douglas DO) Diverticulitis (Chronic) Acute GI bleeding (Acute) Ceruminosis (Acute) Dental caries (Acute) Chronic pain syndrome (Chronic) Bladder stone (Acute) Calcium nephrolithiasis (Acute) w/ hydronephrosis and BRIELLE (creat 1.8) Diverticulosis (Acute ~07/2018) Left inguinal hernia (Acute ~07/2018) 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 Allergic rhinitis (Acute) Essential hypertension (Acute 07/17/13) Gastroesophageal reflux (Acute) Hyperlipidemia (Acute) Joint pain (Acute) DJD Kidney stone on left side (Acute 12/18/14) 12/18/14 [facility] [place] and removed 07/29/18 WITH HYDRONEPHROSIS Lumbago (Acute) L 5 compression fx; Low back pain (Acute) L 5 compression fx; Neoplasm of unspecified nature of bone, soft tissue, 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) Obstructive sleep apnea syndrome (Acute) severe; CPAP (inital studies [address] [place] [id number] and [facility] [place] Skin lesion of cheek (Acute 08/06/15) Medical History HTN (hypertension) Kidney stones Surgical History Extraction of cataract B/L HERNIA REPAIR X 2 Open Carpal Tunnel release (08/14/14) LEFT/DR LUIS Family History Mother Diabetes Essential hypertension Heart disease Father Essential hypertension Personal history of malignant neoplasm COLON/SKIN Heart disease Hyperlipidemia Asthma Maternal Grandmother Essential hypertension Heart disease Stroke Esophageal cancer Sister Essential hypertension Hyperlipidemia Social History Smoking/Tobacco Use Status: Former Tobacco Use Second Hand Exposure: Yes Smoking risk assessment performed?: Yes Alcohol Intake: never Drug use: Never Substance use type: does not use Caregiver/Support person: No Household members: none Communication Needs: None Pets and animals: No Sexually active: No Do you think of yourself as: straight/heterosexual Current gender identity: male How often do you talk on the phone with friends or family?: three or more times per week How often do you attend spiritism or rastafarian services?: 4 or more times per year Do you belong to any clubs or organized social groups?: no Panel score (0-1 are the most socially isolated patients): 2 Duration: < 15 minutes/day Frequency: 1-2 times per week Barby/Mu-Ism: Anabaptist Special barby needs: No Do you feel safe at home: Yes Do you feel safe in your relationship?: Yes Exam Narrative Exam Narrative: General: Nontoxic, comfortable and interactive Neuro: Alert and oriented x3 Psych: Good insight and understanding into his condition. His mood and affect are upbeat and appropriate. Abdomen: Soft, nondistended and nontender. Results Last Vital Signs Temp 97 F L 07/16/22 05:02 Pulse 94 H 07/16/22 05:02 Resp 20 07/16/22 06:57 BP 141/87 H 07/16/22 05:02 Pulse Ox 98 07/16/22 06:57 Labs Result diagrams: 07/16/22 05:25 07/16/22 05:25 Labs: Laboratory Results - last 24 hr 07/16/22 07/16/22 07/16/22 05:25 05:25 05:25 WBC 12.78 H RBC 4.02 L Hgb 11.3 L Hct 34.9 L MCV 87 MCH 28.1 MCHC 32.4 RDW 13.5 Plt Count 261 MPV 12.1 H Immature Gran % 0.4 Neutrophils % 76.6 Lymphocytes % 16.3 Monocytes % 4.8 Eosinophils % 1.6 Basophils % 0.3 Nucleated RBC % 0.0 Absolute Neutrophils 9.79 H Absolute Lymphocytes 2.08 Absolute Monocytes 0.61 Absolute Eosinophils 0.20 Absolute Basophils 0.04 PT 11.0 INR 1.1 APTT 23.2 Sodium 142 Potassium 3.7 Chloride 106 Carbon Dioxide 26.0 Anion Gap 10.0 BUN 16 Creatinine 1.4 H Est GFR (CKD-EPI 2020) 49.56 Glucose 140 H Calcium 9.1 Total Bilirubin 0.4 AST 21 ALT 27 Alkaline Phosphatase 74 Total Protein 6.8 Albumin 3.5 Patient ABO/Rh Antibody Screen 07/16/22 05:25 WBC RBC Hgb Hct MCV MCH MCHC RDW Plt Count MPV Immature Gran % Neutrophils % Lymphocytes % Monocytes % Eosinophils % Basophils % Nucleated RBC % Absolute Neutrophils Absolute Lymphocytes Absolute Monocytes Absolute Eosinophils Absolute Basophils PT INR APTT Sodium Potassium Chloride Carbon Dioxide Anion Gap BUN Creatinine Est GFR (CKD-EPI 2020) Glucose Calcium Total Bilirubin AST ALT Alkaline Phosphatase Total Protein Albumin Patient ABO/Rh A Positive Antibody Screen NEGATIVE
[2022-07-16] MEDS: CIPROFLOXACIN 400 MG/200 ML BAG 200 MG IVPB ×2 (07:21→21:34)
[2022-07-16 07:30] LABS: Source Nasal/Nares
[2022-07-16 08:17] LABS: COVID-19 PCR Negative (Negative)
--- NOTE | 2022-07-16 09:18 | PDOC.CMIN ---
- If Service Date Differs Date of service: 07/16/22 Time of Service: 09:18 Care Management Initial Assess REASON FOR HOSPITALIZATION:: GI Bleed PAST MEDICAL HISTORY/PAST SURGICAL HISTORY:: All Active Problems (Updated 07/16/22 @ 07:35 by Benji Douglas DO). Diverticulitis (Chronic). Acute GI bleeding (Acute). Ceruminosis (Acute). Dental caries (Acute). Chronic pain syndrome (Chronic). Bladder stone (Acute). Calcium nephrolithiasis (Acute). w/ hydronephrosis and BRIELLE (creat 1.8). Diverticulosis (Acute ~07/2018). Left inguinal hernia (Acute ~07/2018). ASCVD (arteriosclerotic cardiovascular disease) (Acute). myocardial infarction and PTCA 1995. Allergic rhinitis (Acute). Essential hypertension (Acute 07/17/13). Gastroesophageal reflux (Acute). Hyperlipidemia (Acute). Joint pain (Acute). DJD. Kidney stone on left side (Acute 12/18/14). [place] [facility] [place]18 WITH HYDRONEPHROSIS. Lumbago (Acute). L 5 compression fx;. Low back pain (Acute). L 5 compression fx;. 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 Obstructive sleep apnea syndrome (Acute). severe; CPAP. (inital [place] [address] [place] [address] [place] [facility] [place] Skin lesion of cheek (Acute 08/06/15). Medical History . HTN (hypertension). Kidney stones. Surgical History . Extraction of cataract. B/L. HERNIA REPAIR. X 2. Open Carpal Tunnel release (08/14/14). LEFT/DR LUIS PREVIOUS FUNCTIONAL STATUS/SOCIAL/FAMILY SUPPORTS:: Emmanuel lives alone in a single family home in [place], [place]. He moved there from [place] about 20 yeaars ago with his . She has since . He has 2 daughters; one lives in [place] and the other lives in [place]. Emmanuel also has a son Paul. 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 He is independent at baseline and does not receive any community services. CURRENT FUNCTIONAL STATUS:: Emmanuel was sitting up in bed when CM met with him. He was open and friendly and engaged eeasily in conversation. Emmanuel had questions about his insurance and anticipated length of stay. CM was able to answer his questions. He was admitted wiith a GI Bleed. His H&H have remained stable but the plan is for him to remain overnight to observee for any recurrence of bleeding. Additionally he has diverticulitis for which he is receiving IV antibiotics. Per provider, those will be changed to oral tomorrow and he will be discharged if he remains stable. ADVANCE DIRECTIVES:: none on file Has patient been provided with info about the portal/API?: Yes Did the patient sign up for the portal?: No CODE STATUS:: Full Code INSURANCE COVERAGE / FINANCIAL ISSUES:: Medicare. [employer] CURRENT HOME/COMMUNITY SERVICES/EQUIPMENT:: none PRIMARY CARE PHYSICIAN:: Alfredo Burnett POTENTIAL DISCHARGE NEEDS:: Follow up with PCP and surgery and plan of care as prescribed PATIENT/FAMILY EDUCATION NEEDS:: Review of discharge instructions, activity, limitations, diet, follow up plan, discuss Ask Me Three TRANSPORTATION:: via private vehicle with friend PLAN:: Anticipate Emmanuel will be discharged home, possibly with new home health services, when medically cleared. He will follow up with community providers and plan of care and transport with family.CM will follow and continue to assess for discharge planning concerns.
[2022-07-16] MEDS: metroNIDAZOLE 500 MG/100 ML BAG 100 MG IVPB ×2 (09:32→17:23)
[2022-07-16] MEDS: Normal Saline Flush 10 ML SYR (09:33)
[2022-07-16] MEDS: Metoprolol 12.5 MG TAB 25 MG PO ×2 (09:33→21:35)
[2022-07-16] MEDS: Loratidine 10 MG TAB PO (09:33)
[2022-07-16] MEDS: hydroCHLOROthiazide 12.5 MG TAB PO (09:33)
[2022-07-16] MEDS: Potassium Chloride 10 MEQ TABCR PO ×2 (09:33→21:35)
[2022-07-16] MEDS: Omeprazole 20 MG CAPCR PO (09:33)
[2022-07-16] MEDS: Multivitamin w/Minerals TAB 1 TAB PO (09:33)
--- NOTE | 2022-07-16 10:59 | HPE_ITS ---
Date of service: 07/16/22 Time of Service: 10:59 Assessment and Plan Assessment and plan (1) Diverticulitis: Status: Chronic Assessment and plan: First episode. Cont Cipro and Flagyl. Accompanied by GI bleed (see below). Gen Surg consulted and standing by should intervention be necessary. (2) Acute GI bleeding: Status: Acute Assessment and plan: Monitor H/H. BP stable. Mild tachycardia. (3) Essential hypertension: Status: Acute Assessment and plan: Will continue metoprolol as long as BP is adequate. Also on HCTZ, low dose of 12.5. Continue, again, as long as BP is adequate. (4) Hyperlipidemia: Status: Acute Assessment and plan: Cont simvistatin. (5) Discharge planning issues: Status: Acute Assessment and plan: Pt is a full code. Palliative medicine consulted for goals of care. History of Present Illness History of Present Illness Chief Complaint: Bright red blood per rectum. Narrative: This is an 82 yo male with a PMH of CAD, HTN, HLD, FADUMO, nephrolithiasis. He endorsed mild left lower quadrant pain and subsequent bright red blood per rectum at appx midnight. EMS contacted at 3 AM. He developed lightheadedness but no syncope. No N/V. In the ED his hemoglobin was 11.4 (22 Aug 2020). WBC count 12.78. Lytes normal. Creatinine 1.4 (1.4 in December of 2021). CT performed that showed uncomplicated sigmoid diverticulitis. General Surgeon, Dr Luis consulted in the ED and will be available if surgical intervention need should develop. IV cipro and flagyl initiated in the ED. Review of Systems All systems reviewed & are unremarkable except as noted in HPI and below PFSH All Active Problems (Updated 07/16/22 @ 12:24 by Alvaro Lim MD) Discharge planning issues (Acute) Diverticulitis (Chronic) Acute GI bleeding (Acute) Ceruminosis (Acute) Dental caries (Acute) Chronic pain syndrome (Chronic) Bladder stone (Acute) Calcium nephrolithiasis (Acute) w/ hydronephrosis and BRIELLE (creat 1.8) Diverticulosis (Acute ~07/2018) Left inguinal hernia (Acute ~07/2018) 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 Allergic rhinitis (Acute) Essential hypertension (Acute 07/17/13) Gastroesophageal reflux (Acute) Hyperlipidemia (Acute) Joint pain (Acute) DJD Kidney stone on left side (Acute 12/18/14) 12/18/14 [facility] [place]/29/18 WITH HYDRONEPHROSIS Lumbago (Acute) L 5 compression fx; Low back pain (Acute) L 5 compression fx; Neoplasm of unspecified nature of bone, soft tissue, 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) Obstructive sleep apnea syndrome (Acute) severe; CPAP (inital studies 2007 [facility] and [facility] [place] Skin lesion of cheek (Acute 08/06/15) Medical History HTN (hypertension) Kidney stones Surgical History Extraction of cataract B/L HERNIA REPAIR X 2 Open Carpal Tunnel release (08/14/14) LEFT/DR LUIS Family History Mother Diabetes Essential hypertension Heart disease Father Essential hypertension Personal history of malignant neoplasm COLON/SKIN Heart disease Hyperlipidemia Asthma Maternal Grandmother Essential hypertension Heart disease Stroke Esophageal cancer Sister Essential hypertension Hyperlipidemia Social History Smoking/Tobacco Use Status: Former Tobacco Use Second Hand Exposure: Yes Smoking risk assessment performed?: Yes Alcohol Intake: never Drug use: Never Substance use type: does not use Caregiver/Support person: No Household members: none Communication Needs: None Pets and animals: No Sexually active: No Do you think of yourself as: straight/heterosexual Current gender identity: male How often do you talk on the phone with friends or family?: three or more times per week How often do you attend islam or bahai services?: 4 or more times per year Do you belong to any clubs or organized social groups?: no Panel score (0-1 are the most socially isolated patients): 2 Duration: < 15 minutes/day Frequency: 1-2 times per week Barby/Lutheran: Yarsanism Special barby needs: No Do you feel safe at home: Yes Do you feel safe in your relationship?: Yes Meds Allergies and Home Medications Allergies Allergy/AdvReac Type Severity Reaction Status Date / Time birch Allergy Unknown Verified 07/16/22 05:18 chocolate flavor AdvReac Diarrhea Verified 07/16/22 07:01 clindamycin AdvReac DIARRHEA Verified 07/16/22 05:18 DUST Allergy Unknown Uncoded 07/16/22 05:18 MOLDS AND SMUT Allergy Unknown Uncoded 07/16/22 05:18 PINE TREE Allergy Unknown Uncoded 07/16/22 05:18 RAGWEED Allergy Unknown Uncoded 07/16/22 05:18 Home Medications Medication Instructions Recorded Confirmed Type aspirin 81 mg tablet,delayed 81 mg PO DAILY 11/16/12 07/16/22 History release (Ecotrin Low Strength) saw palmetto 450 mg capsule 450 mg PO BID 11/16/12 07/16/22 History Centrum Silver Ultra Men's Tab 1 ea PO DAILY 01/12/14 07/16/22 History fluticasone propionate 50 1 - 2 spry NS DAILY PRN ##3 07/28/14 07/16/22 History mcg/actuation nasal spray,suspension (Flonase) flu vac qs 2020-(6 ms up) CD 60 0.5 ml IM ONCE #0.5 mL 06/17/21 07/16/22 Clinic mcg (15 mcg x 4)/0.5 mL IM susp loratadine 10 mg tablet 10 mg PO DAILY #90 tab-caps 09/01/21 07/16/22 Rx tramadol 50 mg tablet 50 mg PO Q6H PRN pain #50 tabs 09/01/21 07/16/22 Rx hydrochlorothiazide 12.5 mg tablet 12.5 mg PO DAILY #90 tab-caps 09/12/21 07/16/22 Rx metoprolol tartrate 25 mg tablet 25 mg PO BID #180 tab-caps 09/12/21 07/16/22 Rx omeprazole 20 mg capsule,delayed 20 mg PO QAM #90 tab-caps 09/12/21 07/16/22 Rx release potassium chloride 10 mEq 10 meq PO BID #180 tab-caps 09/12/21 07/16/22 Rx tablet,extended release simvastatin 20 mg tablet 20 mg PO HS #90 tab-caps 09/12/21 07/16/22 Rx Exam Narrative Exam Narrative: Pleasant elderly male lying in bed. He is conversant and non-toxic appearing. Const General: cooperative and no acute distress Nutritional Appearance: obese Orientation: alert and oriented x3 Eyes General: appearance normal, both eyes and all related structures Sclera: sclerae normal Resp Effort & Inspection: normal respiratory effort Auscultation: clear to auscultation bilaterally Cardio Rate: regular rate Rhythm: regular rhythm Heart Sounds: S1 normal and S2 normal GI Inspection: non-distended Palpation: soft and nontender Skin General skin exam: no rashes or lesions noted and other (Large number of seborrheic karatoses on face and torso) Extrem General: no pedal edema and no calf tenderness Psych Appearance: grossly normal Mental Status: mental status grossly normal Affect: normal affect Results Labs Result diagrams: 07/16/22 11:48 07/16/22 05:25 Labs: Laboratory Results - last 24 hr 07/16/22 07/16/22 07/16/22 05:25 05:25 05:25 WBC 12.78 H RBC 4.02 L Hgb 11.3 L Hct 34.9 L MCV 87 MCH 28.1 MCHC 32.4 RDW 13.5 Plt Count 261 MPV 12.1 H Immature Gran % 0.4 Neutrophils % 76.6 Lymphocytes % 16.3 Monocytes % 4.8 Eosinophils % 1.6 Basophils % 0.3 Nucleated RBC % 0.0 Absolute Neutrophils 9.79 H Absolute Lymphocytes 2.08 Absolute Monocytes 0.61 Absolute Eosinophils 0.20 Absolute Basophils 0.04 PT 11.0 INR 1.1 APTT 23.2 Sodium 142 Potassium 3.7 Chloride 106 Carbon Dioxide 26.0 Anion Gap 10.0 BUN 16 Creatinine 1.4 H Est GFR (CKD-EPI 2020) 49.56 Glucose 140 H Calcium 9.1 Total Bilirubin 0.4 AST 21 ALT 27 Alkaline Phosphatase 74 Total Protein 6.8 Albumin 3.5 COVID-19 Source SARS-CoV-2 (PCR) Patient ABO/Rh Antibody Screen 07/16/22 07/16/22 05:25 07:25 WBC RBC Hgb Hct MCV MCH MCHC RDW Plt Count MPV Immature Gran % Neutrophils % Lymphocytes % Monocytes % Eosinophils % Basophils % Nucleated RBC % Absolute Neutrophils Absolute Lymphocytes Absolute Monocytes Absolute Eosinophils Absolute Basophils PT INR APTT Sodium Potassium Chloride Carbon Dioxide Anion Gap BUN Creatinine Est GFR (CKD-EPI 2020) Glucose Calcium Total Bilirubin AST ALT Alkaline Phosphatase Total Protein Albumin COVID-19 Source Nasal/Nares SARS-CoV-2 (PCR) Negative Patient ABO/Rh A Positive Antibody Screen NEGATIVE Last Vital Signs Temp 36.3 C L 07/16/22 09:06 Pulse 102 H 07/16/22 09:06 Resp 18 07/16/22 09:06 BP 117/74 07/16/22 09:06 Pulse Ox 98 07/16/22 09:06 Time Spent Time spent with Patient: 40-54 minutes Time was spent: preparing to see the patient(eg.review tests), obtaining and/or reviewing separately otained hiistory, ordering medications,tests, procedures, referring, communicating with other health long term care pharmacist and indepentently interpreting results
[2022-07-16 12:02] LABS: HCT 35.2 % (40.0-50.0); HGB 11.2 g/dL (13.5-17.5)
[2022-07-17 00:03] VITALS: BP 145/63; PULSE 66; RESP 17; TEMP 36.1; O2SAT 96
[2022-07-17] MEDS: metroNIDAZOLE 500 MG/100 ML BAG 100 MG IVPB ×2 (03:11→10:16)
[2022-07-17 06:31] LABS: Abs Immature Grans 0.05 10^3/uL (0.0-0.06); Absolute Basophil Count 0.05 10^3/uL (0.0-0.2); Absolute Eosinophil Count 0.51 10^3/uL (0.0-0.7); Absolute Lymphocyte Count 3.02 10^3/uL (1.2-3.4); Absolute Monocyte Count 0.72 10^3/uL (0.1-0.8); Basophils % 0.5; Eosinophils % 4.7; HCT 30.2 % (40.0-50.0); HGB 9.9 g/dL (13.5-17.5); Immature Grans % 0.5; Lymphocytes % 27.6; MCHC 32.8 % (32.0-36.0); MCV 85 fL (80-95); MPV 12.2 fL (8.0-11.0); Monocytes % 6.6; Neutrophils % 60.1; Platelet Count 222 10^3/uL (130-400); RBC 3.54 10^6/uL (4.36-5.78); RDW 13.5 % (11.8-14.1); RDW-SD 42.8 fL; WBC 10.94 10^3/uL (4.4-10.8)
[2022-07-17 06:36] LABS: Absolute Neutrophil Count 6.57 10^3/uL (1.2-6.7)
[2022-07-17 06:48] LABS: Anion Gap 9.2 mmol/L (3-11); BUN 15 mg/dL (7-18); CO2 25.8 mmol/L (21.0-32.0); CREATININE 1.1 mg/dL (0.70-1.30); Chloride 104 mmol/L (98-107); Estimated GFR 66.19 (mL/min/1.73m2); Glucose 106 mg/dL (74-106); Potassium 3.5 mmol/L (3.5-5.1); Sodium 139 mmol/L (136-145)
[2022-07-17 07:37] VITALS: BP 125/67; PULSE 66; RESP 18; TEMP 36; O2SAT 98
[2022-07-17] MEDS: Omeprazole 20 MG CAPCR PO (08:47)
[2022-07-17] MEDS: Potassium Chloride 10 MEQ TABCR PO (08:47)
[2022-07-17] MEDS: hydroCHLOROthiazide 12.5 MG TAB PO (08:47)
[2022-07-17] MEDS: Loratidine 10 MG TAB PO (08:47)
[2022-07-17] MEDS: Metoprolol 12.5 MG TAB 25 MG PO (08:47)
[2022-07-17] MEDS: Multivitamin w/Minerals TAB 1 TAB PO (08:47)
[2022-07-17] MEDS: Normal Saline Flush 10 ML SYR (08:48)
[2022-07-17] MEDS: CIPROFLOXACIN 400 MG/200 ML BAG 200 MG IVPB (08:48)
--- NOTE | 2022-07-17 08:48 | CMPROGNOTE_ITS ---
- If Service Date Differs Date of service: 07/17/22 Time of Service: 08:48 Care Management Progress Note S/O:Emmanuel was sitting up in bed when CM met with him. He was pleasant and engaged readily with CM. Emmanuel stated that he is feeling good and he expressed his hope that he can be discharged home today. He denied having any pain and has not had any additional episodes of rectal bleeding. His vital signs are stable and although his H&H dipped slightly, he does not meet criteria for a transfu eric. A: Emmanuel is an 82 year old man admitted with diverticulitis P:Anticipate Emmanuel will be discharged home, possibly with new home health services, when medically cleared. He will follow up with community providers and plan of care and transport with family.CM will follow and continue to assess for discharge planning concerns.
[2022-07-17 14:38] VITALS: BP 116/57; PULSE 61; RESP 18; TEMP 36.7; O2SAT 96
--- NOTE | 2022-07-17 15:06 | RESPIRATORY ---
RT spoke with patient concerning history of FADUMO in patient chart, patient used a device at one point but no longer does so.
--- NOTE | 2022-07-17 15:18 | PDOC.CMDIS ---
- If Service Date Differs Date of service: 07/17/22 Time of Service: 15:18 LACE Index Scoring Tool - Questions: Length of Stay (in days): 1 Acuity (Admit via E.D.?): Yes Comorbidities: Previous M.I. E.D. Visits: 2 - Answers: Total Score: 7 Risk of Readmission: Low Risk Care Management Discharge Reason for Hospitalization: GI Bleed Discharge Plan: Anticipate Emmanuel will be discharged home with no new services. He will follow up with community providers and plan of care and transport with his friend. Patient/Family Education Needs: Review of discharge instructions, activity, limitations, diet, follow up plan, discuss Ask Me Three
--- NOTE | 2022-07-17 15:24 | W.PM.DS.N ---
Date of service: 07/17/22 Time of Service: 16:00 DS: Diagnosis Discharge Diagnosis (1) Diverticulitis: Status: Chronic (2) Acute GI bleeding: Status: Acute (3) Essential hypertension: Status: Acute (4) Hyperlipidemia: Status: Acute Discharge Plan Disposition Patient Disposition: Home Condition: Stable Discharge Details Reason For Visit: Diverticulitis Admit Date/Time: 07/16/22 07:18 Admit Provider: Alvaro Lim Attending Provider: Alvaro Lim Primary Care Provider: Alfredo Burnett Hospital Course Hospital Course: Mr Sylvester is an 82 year old male with PMHx of HCAD, [place], hyperlipidemia, nephrolithasis, GERD, who was admitted to [facility] hospitalist service on 07/16/22 for acute diverticulitis accompanied by lower GI bleeding, likely diverticular in nature. The patient was on a baby aspirin prior to hospitalization. This was held. He was initiated on ciprofloxacin and metronidazole and, as the bleeding was clinically subsiding, was started on a diet, which he tolerated. His last BM only had old blood in it, no clots, no bright red blood. At this point, the patient feels well enough to go home. He is instructed to return to the hospital should the bleeding return, if he develops fever, chest pain, palpitations, or shortness of breath. He is being discharged with information on a diverticulitis diet. He is to complete a 2 week course of antibiotics. He is being referred to general surgery on discharge and is asked to follow up with his PCP in 1-2 weeks. Care for patient as well as completion of his discharge summary on day of discharge took 50 minutes. Home Meds and New Rx's Prescriptions: New ciprofloxacin HCl [Cipro] 250 mg tablet 250 mg PO BID Qty: 22 0RF metronidazole 500 mg tablet 500 mg PO Q8H Qty: 33 0RF Continued flu vac qs (6 ms up) CD 60 mcg (15 mcg x 4)/0.5 mL suspension 0.5 ml IM ONCE Qty: 0.5 0RF saw palmetto 450 MG capsule 450 mg PO BID CENTRUM SILVER ULTRA MEN'S TAB 1 EACH tablet 1 ea PO DAILY fluticasone propionate [Flonase] 16 GM spray,suspension 1 - 2 spry NS DAILY PRN Qty: 3 tramadol 50 mg tablet 50 mg PO Q6H PRN (Reason: pain) Qty: 50 0RF Rx Instructions: may take along with tylenol or NSAIDs loratadine 10 mg tablet 10 mg PO DAILY Qty: 90 4RF Rx Instructions: 1 TAB DAILY potassium chloride 10 mEq tablet extended release 10 meq PO BID Qty: 180 4RF Rx Instructions: Klor Con brand medically necessary (it is the only kind he can swallow) simvastatin 20 mg tablet 20 mg PO HS Qty: 90 4RF Rx Instructions: 1 TAB hs omeprazole 20 mg capsule,delayed release(DR/EC) 20 mg PO QAM Qty: 90 4RF Rx Instructions: 1 TAB QAM hydrochlorothiazide 12.5 mg tablet 12.5 mg PO DAILY Qty: 90 4RF Rx Instructions: 1 TAB DAILY metoprolol tartrate 25 mg tablet 25 mg PO BID Qty: 180 4RF Rx Instructions: 1 TAB BID Held aspirin [Ecotrin Low Strength] 81 MG tablet,delayed release (DR/EC) 81 mg PO DAILY Hold Instructions: Resume on 07/24/22. Resume if no bleeding x 1 week Discharge Instructions Instructions: Ciprofloxacin (By mouth), Metronidazole (By mouth), Gastrointestinal Bleeding (DC), Diverticulitis (DC), Diverticulitis Diet (DC) Additional Instructions: Finish your antibiotics as prescribed. Return to the hospital with any fever, bleeding, chest pain, or shortness of breath. Follow up with your PCP and with general surgery. Hold aspirin x 1 week. Stand Alone Forms: Nursing Discharge Form Referrals: Jai Nuñez MD [ [facility] STAFF PHYSICIAN] - 07/26/22 11:15 am Alfredo Burnett MD [Primary Care Provider] - 08/02/22 11:00 am Activity:: Activity as Tolerated Equipment/Supplies:: No Equipment Needed Diet:: diverticulitis diet Discharge Orders Discharge Orders: Discharge Order (Routine); Ordered 07/17/22 Ordered By: Apolonia Alfredo Discharge Data Discharge Date/Time-TO BE ENTERED AT DEPARTURE: 07/17/22 16:51 DS: Summary Time Spent with Patient providing and/or coordinating discharge services: Greater than 30 minutes Status at Discharge Functional status at discharge: independent ambulation Overall status at discharge: patient is progressing back to baseline Mental Status: mental status grossly normal Speech and Movement: speech and movement normal Mood: congruent mood Affect: normal affect Exam Narrative Exam Narrative: General: Pleasant elderly male who is A&Ox3, NAD HEENT: EOMI, MMM Heart: RRR Lungs: CTAB Abdomen: soft, nontender, nondistended Extremities: no edema Psych Mental Status: mental status grossly normal Speech and Movement: speech and movement normal Mood: congruent mood Affect: normal affect DS: Data Vitals/I&O Vitals and I&O: Vital Signs Temperature 36.7 C 07/17/22 14:38 Temperature Source Tympanic 07/17/22 14:38 Pulse 61 07/17/22 14:38 Pulse Rhythm Regular 07/17/22 08:45 Pulse 83 07/16/22 08:13 Respiratory Rate 18 07/17/22 14:38 Respiratory Effort Non-Labored 07/17/22 08:45 Respiratory Depth Normal 07/17/22 08:45 Respiratory Pattern Normal 07/17/22 08:45 Blood Pressure 116/57 L 07/17/22 14:38 Blood Pressure Mean 99 07/16/22 08:13 Blood Pressure Position Supine 07/16/22 05:02 Pulse Oximetry 96 07/17/22 14:38 Oxygen Delivery Method Room Air 07/17/22 14:38 Oxygen Flow Rate 0 07/17/22 14:38 Pain Level 0 07/17/22 14:38 Comment 07/16/22 15:15 Intake & Output 07/16/22 07/17/22 07/17/22 23:59 11:59 23:59 Intake Total 617.833 / 1219.833 500 / 500 Output Total 525 / 525 Balance 617.833 / 1019.833 -25 / -25 Weight 101.6 kg Intake: IV 617.833 / 1219.833 300 / 300 Oral 200 / 200 Output: Urine 525 / 525 Other: Urine Color Yellow Straw Urine Appearance Clear Clear Comment independent use pt had x2 small voids in urinal tonight. 150mls each. pT stated that he had voided again after using the urinal this morning. Stool Characteristics Soft Voiding Methods Toilet Urinal Toilet Data Completed and Pending Completed studies during hospitalization [Text1]: CT abdomen/pelvis: Mild diverticulitis sigmoid colon. Multiple bladder calculi.? No renal calculi or hydronephrosis. Labs on day of discharge: Labs from last 24 hours 07/17/22 07/17/22 05:53 05:53 WBC 10.94 H RBC 3.54 L Hgb 9.9 L Hct 30.2 L MCV 85 MCH 28.0 MCHC 32.8 RDW 13.5 Plt Count 222 MPV 12.2 H Immature Gran % 0.5 Neutrophils % 60.1 Lymphocytes % 27.6 Monocytes % 6.6 Eosinophils % 4.7 Basophils % 0.5 Nucleated RBC % 0.0 Absolute Neutrophils 6.57 Absolute Lymphocytes 3.02 Absolute Monocytes 0.72 Absolute Eosinophils 0.51 Absolute Basophils 0.05 Sodium 139 Potassium 3.5 Chloride 104 Carbon Dioxide 25.8 Anion Gap 9.2 BUN 15 Creatinine 1.1 Est GFR (CKD-EPI 2020) 66.19 Glucose 106 Calcium 9.0 PFSH All Active Problems (Updated 07/16/22 @ 12:24 by Alvaro Lim MD) Discharge planning issues (Acute) Diverticulitis (Chronic) Acute GI bleeding (Acute) Ceruminosis (Acute) Dental caries (Acute) Chronic pain syndrome (Chronic) Bladder stone (Acute) Calcium nephrolithiasis (Acute) w/ hydronephrosis and BRIELLE (creat 1.8) Diverticulosis (Acute ~07/2018) Left inguinal hernia (Acute ~07/2018) 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 Allergic rhinitis (Acute) Essential hypertension (Acute 07/17/13) Gastroesophageal reflux (Acute) Hyperlipidemia (Acute) Joint pain (Acute) DJD Kidney stone on left side (Acute 12/18/14) [place] [facility] [place] WITH HYDRONEPHROSIS Lumbago (Acute) L 5 compression fx; Low back pain (Acute) L 5 compression fx; Neoplasm of unspecified nature of bone, soft tissue, 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) Obstructive sleep apnea syndrome (Acute) severe; CPAP (inital studies 2007 [facility] [place] [facility] [place] Skin lesion of cheek (Acute 08/06/15) Medical History HTN (hypertension) Kidney stones Surgical History Extraction of cataract B/L HERNIA REPAIR X 2 Open Carpal Tunnel release (08/14/14) LEFT/DR LUIS Family History Mother Diabetes Essential hypertension Heart disease Father Essential hypertension Personal history of malignant neoplasm COLON/SKIN Heart disease Hyperlipidemia Asthma Maternal Grandmother Essential hypertension Heart disease Stroke Esophageal cancer Sister Essential hypertension Hyperlipidemia Social History Smoking/Tobacco Use Status: Former Tobacco Use Second Hand Exposure: Yes Smoking risk assessment performed?: Yes Alcohol Intake: never Drug use: Never Substance use type: does not use Caregiver/Support person: No Household members: none Communication Needs: None Pets and animals: No Sexually active: No Do you think of yourself as: straight/heterosexual Current gender identity: male How often do you talk on the phone with friends or family?: three or more times per week How often do you attend voodoo or shinto services?: 4 or more times per year Do you belong to any clubs or organized social groups?: no Panel score (0-1 are the most socially isolated patients): 2 Duration: < 15 minutes/day Frequency: 1-2 times per week Barby/Scientologist: Episcopalian Special barby needs: No Do you feel safe at home: Yes Do you feel safe in your relationship?: Yes Time Spent with Patient Time Spent with Patient: 45-69 minutes Time was spent: preparing to see the patient(eg.review tests), obtaining and/or reviewing separately otained hiistory, ordering medications,tests, procedures, referring, communicating with other health residential child care counselor, indepentently interpreting results, counseling the patient and care coordination
== END 2022-07-17 16:51 | disposition home or self-care (01) | DRG 379 ==
LOC: ER 08:09 → MS 08:38
PROVIDERS: Admitting Provider Family Medicine; Emergency Provider Student in an Organized Health Care Education/Training Program; PCP Family Medicine; Visit Provider Family Medicine
DX: K57.31 Diverticulosis of large intestine without perforation or abscess with bleeding (principal); E78.5 Hyperlipidemia, unspecified; I10 Essential (primary) hypertension; I25.10 Atherosclerotic heart disease of native coronary artery without angina pectoris; K21.9 Gastro-esophageal reflux disease without esophagitis; K02.9 Dental caries, unspecified; I25.2 Old myocardial infarction; J30.9 Allergic rhinitis, unspecified; G47.33 Obstructive sleep apnea (adult) (pediatric); Z87.891 Personal history of nicotine dependence; N20.0 Calculus of kidney
CPT/HCPCS: 36415; 80048; 80053; 86850; 86900; 86901; 87635; 96361; 96365; 96366; 96368; 96375; 99222; 99285; 74177; 85014; 85018; 85025; 85610; 85730; 99239; J0744; J3490

== ENCOUNTER → 2022-07-26 11:53 | Outpatient (BNVA) | payer MEDICARE, OTHER, SELFPAY | PROVIDERS: PCP Family Medicine; Referring Provider Family Medicine; Visit Provider Surgery | DX: K92.2 Gastrointestinal hemorrhage, unspecified (principal) | CPT/HCPCS: 99213 ==

== ENCOUNTER 2022-07-28 00:02 | Outpatient (CLI) | payer MEDICARE, OTHER, SELFPAY ==
--- NOTE | 2022-07-28 07:45 | DI.US_ITS ---
Exam(s) US RENAL EXAM: US RENAL CLINICAL HISTORY: monitoring of renal/bladder stones,N21.0. TECHNIQUE: [place] scale, color and spectral Doppler were used. COMPARISON: US US RENAL from 06/24/[address] ABDOMEN PELVIS W from 07/16/2022 FINDINGS: Renal size in cm: Right: 10.9. Left: 10.8. Echogenicity: Normal. Hydronephrosis: No. Cyst or mass: There is again seen a simple left renal cysts. No follow-up is recommended. Nephrolithiasis: No. Other findings: None. Bladder:There are several stones seen within the urinary bladder. The largest measures 2.2 cm. Ureteral jets: Right: Not visualized on this examination. Left: Not visualized on this examination. Prevoid vol:66 cc Postvoid vol:12 cc Prostate: 61 cc Renal color flow: Symmetric and within normal limits. IMPRESSION: 1. Multiple urinary bladder stones. 2. Prostatic enlargement. DATA REPOSITORY:
== END 2022-07-28 00:22 ==
LOC: DI 00:03
PROVIDERS: PCP Family Medicine; Visit Provider Nurse Practitioner Gerontology
DX: N21.0 Calculus in bladder (principal); N40.0 Benign prostatic hyperplasia without lower urinary tract symptoms
CPT/HCPCS: 76770

== ENCOUNTER → 2022-08-02 14:35 | Outpatient (BNVA) | payer MEDICARE, OTHER, SELFPAY | PROVIDERS: PCP Family Medicine; Referring Provider Family Medicine; Visit Provider Nurse Practitioner Gerontology | DX: N21.0 Calculus in bladder (principal) | CPT/HCPCS: 99213 ==

== ENCOUNTER 2022-08-15 09:46 | Day surgery (SDC) | payer MEDICARE, OTHER, SELFPAY ==
--- NOTE | 2022-08-14 20:53 | W.PM.DSUDISC ---
Date of service: 08/15/22 Time of Service: 12:24 Discharge Plan Disposition Patient Disposition: Home Condition: Good Discharge Details Reason For Visit: EGD and colonoscopy Attending Provider: Jai Nuñez Primary Care Provider: Alfredo Burnett Home Meds and New Rx's Prescriptions: Continued tramadol 50 mg tablet 50 mg PO Q6H PRN (Reason: pain) Qty: 50 0RF Rx Instructions: may take along with tylenol or NSAIDs hydrochlorothiazide 12.5 mg tablet 12.5 mg PO DAILY Qty: 90 4RF Rx Instructions: 1 TAB DAILY metoprolol tartrate 25 mg tablet 25 mg PO BID Qty: 180 4RF Rx Instructions: 1 TAB BID omeprazole 20 mg capsule,delayed release(DR/EC) 20 mg PO QAM Qty: 90 4RF Rx Instructions: 1 TAB QAM flu vac qs 2020-(6 ms up) CD 60 mcg (15 mcg x 4)/0.5 mL suspension 0.5 ml IM ONCE Qty: 0.5 0RF aspirin [Ecotrin Low Strength] 81 MG tablet,delayed release (DR/EC) 81 mg PO DAILY Hold Instructions: Resume on 07/24/22. Resume if no bleeding x 1 week saw palmetto 450 MG capsule 450 mg PO BID CENTRUM SILVER ULTRA MEN'S TAB 1 EACH tablet 1 ea PO DAILY fluticasone propionate [Flonase] 16 GM spray,suspension 1 - 2 spry NS DAILY PRN Qty: 3 loratadine 10 mg tablet 10 mg PO DAILY Qty: 90 4RF Rx Instructions: 1 TAB DAILY potassium chloride 10 mEq tablet extended release 10 meq PO BID Qty: 180 4RF Rx Instructions: Klor Con brand medically necessary (it is the only kind he can swallow) simvastatin 20 mg tablet 20 mg PO HS Qty: 90 4RF Rx Instructions: 1 TAB hs Discontinued polyethylene glycol 3350 17 gram/dose powder 238 g PO ONCE Qty: 238 0RF Rx Instructions: take per colonoscopy instructions bisacodyl [Dulcolax (bisacodyl)] 5 mg tablet,delayed release (DR/EC) 5 mg PO ONCE Qty: 4 0RF Rx Instructions: take per colonoscopy instructions Discharge Instructions Instructions: Diverticulosis (GEN), Diverticulosis Diet (GEN), Gastrointestinal Bleeding (GEN), Colorectal Polyps (GEN) Additional Instructions: Emmanuel, we were able to complete her upper and lower endoscopy today without any difficulty. We upper endoscopy was totally negative. As suspected, your colonoscopy demonstrated extensive diverticulosis, which I suspect is the most likely source of your bleeding. I did find 2 polyps that I removed completely. These do not typically cause the bleeding that you experience. I will notify you and have the results of the pathology report. 1. If tolerated, consume a soft, low fiber diet for 1-2 days. 2. Do not drive, drink alcohol, operate machinery, make critical decisions, or do activities that require coordination or balance for 24 hours. 3. Because air was put into your colon during the procedure, expelling air from your rectum (passing gas or farting) is normal. 4. You may not have a bowel movement for 1-3 days because of the colonoscopy prep. This is normal. 5. You may experience a sore throat for 24 to 48 hours. You may use throat lozenges or gargle with warm salt water to relieve the discomfort. 6. Because air was put into your stomach during the procedure, you may experience some belching. 7. Go directly to the emergency room if you notice any of the following: Develop chills (warm to touch), or if you have a thermometer and your temperature is above 101 Difficulty breathing or difficultly swallowing Persistent vomiting Severe abdominal pain, other than gas cramps Severe chest pain Black, tarry stools Any bleeding ? exceeding one tablespoon 8. Call your physician if the site where your intravenous was started becomes red, swollen, painful, and warm to touch. 9. Your physician has reviewed your pre-procedure medications. Please continue to take those medications as previously ordered. You will be given specific information/education regarding any changes to your medications before leaving. Activity:: Activity as Tolerated Diet:: As Tolerated Discharge Orders Discharge Orders: Discharge Order (Routine); Ordered 08/14/22 Ordered By: Jai Nuñez DS: Diagnosis Discharge Diagnosis (1) Acute GI bleeding: Status: Acute Asessment and Plan: Negative upper GI Colonoscopy demonstrated diverticulosis, and 2 colorectal polyps. -Follow-up on pathology from polypectomies
--- NOTE | 2022-08-14 20:55 | COLE_ITS ---
Date of service: 08/15/22 Time of Service: 12:52 Colonoscopy Report Date of procedure: 08/15/22 Pre-op diagnosis general: GI Bleeding Post-op diagnosis procedure note: other (Diverticulosis, colorectal polyps) Procedure: EGD and colonoscopy with polypectomy Surgeon: Jai Nuñez Anesthesia Type: General:No Airway Estimated blood loss (mL): 10 Pathology: other (Colon polyp at 120 cm, colon polyp at 35 cm) Complications: None Disposition: same day Indications: Emmanuel is an 82-year-old male who recently experienced GI bleeding of uncertain etiology. He was treated nonoperatively, and the bleeding resolved spontaneousl y. Prep: Miralax/Dulcolax Procedure Start Time: 11:28 Procedure End Time: 12:05 Retraction Time: 21 Findings: Diverticulosis colorectal polyp Procedure Description: After the initiation of monitored anesthetic care, and with the assistance of a bite block, I advanced a standard gastroscope through the mouth past the hypopharynx and into the esophagus.? Under the direct vision of the scope, I advanced down the esophagus into the stomach.? Once I entered the stomach, I performed a brief inspection, followed by retroflexion towards the gastric cardia.? This appeared normal.? After that, I gently advanced the scope around the incisura angularis and examined the pylorus.? This also appeared normal.? Next, I advanced the scope through the pylorus into the duodenum.? The mucosa was pink and healthy appearing.? There were no abnormalities.? I was able to visualize bile draining into the duodenum through the ampulla Vater. ?Next, I began retracting the endoscope.? Again, I returned to the stomach which was carefully examined.? I then gently desufflated some of the stomach, and withdrew the endoscope into the distal esophagus. The Z-line was normal-appearing at 40 cm. ?Finally, I withdrew the scope along the length of the esophagus taking great care to examine the entirety of the mucosa.? I did not appreciate any abnormalities. We then rolled Emmanuel into the left lateral decubitus position. I began by performing an external anorectal exam.? Perineum and skin were normal, as was the anal verge.? There was no evidence of external hemorrhoids.? Next, I performed a digital rectal exam.? I did not appreciate any abnormal findings.? Next, I advanced a colonoscope into the rectal vault.? I performed retroflexion.? This appeared normal.? Using insufflation, I then advanced the colonoscope beyond the rectal folds and into the sigmoid colon before advancing towards the cecum.? The quality of the prep was excellent.? There was sigmoid diverticulosis. the scope was noted to be in the cecum by identification of the ileocecal valve and appendiceal orifice.? I then began withdrawing the colonoscope using repeated irrigation as necessary for full evaluation of the colonic mucosa. Around 120 cm from the anal verge I identified a 0.25 cm sessile polyp. ?It appeared in character. ?I was able to remove this with a cold forcep polypectomy. ?I examined the site, and there was minimal bleeding. ?Once this was completed, I continued to withdraw the scope and examine the remainder of the colonic mucosa. I found another 0.5 cm sessile polyp around 35 cm from the anal verge. I performed cold forcep polypectomy again. There was minimal bleeding. Once the scope was withdrawn to the level of the rectum, great care was taken to examine portions of the rectal folds.? Finally, the scope was withdrawn and the patient was brought to the same-day surgery recovery unit as the anesthetic wore off. ?The findings and instructions were shared with the patient prior to discharge.
[2022-08-15 09:59] VITALS: BP 141/77; PULSE 80; RESP 16; TEMP 36.1; O2SAT 96
[2022-08-15] MEDS: Lactated Ringers 1,000 ML 80 ML IV (10:37)
--- NOTE | 2022-08-15 10:38 | ANES.PREOP_ITS ---
General Info Date of Service Date Performed: 08/15/22 Height: 5 ft 9 in Weight: 100.3 kg Body Mass Index (BMI): 32.6 Surgical Procedure: Operation Date: 08/15/22 11:35 Proposed Procedure Side Surgeon p Colonoscopy/Gastroscopy Jai Nuñez MD Meds Allergies and Home Medications Allergies Allergy/AdvReac Type Severity Reaction Status Date / Time birch Allergy Unknown Verified 08/15/22 10:20 chocolate flavor AdvReac Diarrhea Verified 08/15/22 10:20 clindamycin AdvReac DIARRHEA Verified 08/15/22 10:20 DUST Allergy Unknown Uncoded 08/15/22 10:20 MOLDS AND SMUT Allergy Unknown Uncoded 08/15/22 10:20 PINE TREE Allergy Unknown Uncoded 08/15/22 10:20 RAGWEED Allergy Unknown Uncoded 08/15/22 10:20 Home Medication Medication Instructions Recorded aspirin 81 mg tablet,delayed 81 mg PO DAILY 11/16/12 release (Ecotrin Low Strength) saw palmetto 450 mg capsule 450 mg PO BID 11/16/12 Centrum Silver Ultra Men's Tab 1 ea PO DAILY 01/12/14 fluticasone propionate 50 1 - 2 spry NS DAILY PRN ##3 07/28/14 mcg/actuation nasal spray,suspension (Flonase) loratadine 10 mg tablet 10 mg PO DAILY #90 tab-caps 09/01/21 potassium chloride 10 mEq 10 meq PO BID #180 tab-caps 09/12/21 tablet,extended release simvastatin 20 mg tablet 20 mg PO HS #90 tab-caps 09/12/21 hydrochlorothiazide 12.5 mg tablet 12.5 mg PO DAILY #90 tab-caps 08/02/22 metoprolol tartrate 25 mg tablet 25 mg PO BID #180 tab-caps 08/02/22 omeprazole 20 mg capsule,delayed 20 mg PO QAM #90 tab-caps 08/02/22 release tramadol 50 mg tablet 50 mg PO Q6H PRN pain #50 tabs 08/02/22 Current Visit Medications: Current Medications Generic Name Dose Route Start Last Admin Trade Name Freq PRN Reason Stop Dose Admin Hyoscyamine Sulfate 0.125 mg 08/14/22 20:56 Hyoscyamine 0.125 Mg Sl/Oral/Chew SL DIRECTED PRN Ringer's Solution 1,000 mls @ 80 mls/hr 08/15/22 06:00 IV 09/13/22 23:59 INFUSION [facility] IV Miscellaneous Supplies 1 each 08/15/22 06:00 Iv Access IV 09/13/22 23:59 DIRECTED JAISON Ondansetron HCl 4 mg 08/14/22 20:56 Ondansetron 4 Mg/2 Ml Vial IVP Q4H PRN PRN Nausea / Vomiting Sodium Chloride 0 ml 08/15/22 06:00 Normal Saline Flush 10 Ml Syr IV 09/13/22 23:59 PRN PRN Sodium Chloride 0 ml 08/15/22 06:00 Normal Saline 10 Ml Vial IJ 09/13/22 23:59 DIRECTED PRN Sterile Water 0 ml 08/15/22 06:00 Water,Injection,Sterile 10 Ml Vial IJ 09/13/22 23:59 DIRECTED PRN PFSH Active Problems Active Problems: Problem Status Onset Code Diverticulitis K57.92 Acute GI bleeding K92.2 Ceruminosis H61.20 Dental caries K02.9 Chronic pain syndrome G89.4 Bladder stone N21.0 Calcium nephrolithiasis Diverticulosis ~07/2018 K57.90 Left inguinal hernia ~07/2018 K40.90 ASCVD (arteriosclerotic cardiovascular disease) I25.10 Allergic rhinitis J30.9 Essential hypertension 07/17/13 I10 Gastroesophageal reflux K21.9 Hyperlipidemia E78.5 Joint pain M25.50 Kidney stone on left side 12/18/14 N20.0 Lumbago M54.5 Low back pain M54.5 Neoplasm of unspecified nature of bone, soft tissue, 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 Obstructive sleep apnea syndrome G47.33 Skin lesion of cheek 08/06/15 L98.9 Medical History Medical History HTN (hypertension) Kidney stones Medical History Comments:: 2015 kirill pt reports he has 2 or 3 stents Surgical History Surgical History Extraction of cataract B/L HERNIA REPAIR X 2 Open Carpal Tunnel release (08/14/14) LEFT/DR LUIS Tobacco Smoking/Tobacco Use Status: Former Tobacco Use Second hand exposure: Yes Alcohol Alcohol Intake: never Substance Use Substance use: Never Substance use type: does not use Vital Signs and Lab Results Vital Signs Most Recent Vital Signs in EMR: Most Recent Vital Signs Temp Pulse Resp BP Pulse Ox 36.1 C L 80 16 141/77 H 96 08/15/22 09:59 08/15/22 09:59 08/15/22 09:59 08/15/22 09:59 08/15/22 09:59 Lab Results Blood Type / Crossmatch: No Data to Display Complete Blood Count: White Blood Count 10.94 10^3/uL (4.4-10.8) H 07/17/22 05:53 Red Blood Count 3.54 10^6/uL (4.36-5.78) L 07/17/22 05:53 Hemoglobin 9.9 g/dL (13.5-17.5) L 07/17/22 05:53 Hematocrit 30.2 % (40.0-50.0) L 07/17/22 05:53 Platelet Count 222 10^3/uL (130-400) 07/17/22 05:53 Complete Metabolic Panel: Sodium 139 mmol/L (136-145) 07/17/22 05:53 Potassium 3.5 mmol/L (3.5-5.1) 07/17/22 05:53 Chloride 104 mmol/L (98-107) 07/17/22 05:53 Carbon Dioxide 25.8 mmol/L (21.0-32.0) 07/17/22 05:53 BUN 15 mg/dL (7-18) 07/17/22 05:53 Creatinine 1.1 mg/dL (0.70-1.30) 07/17/22 05:53 Est GFR (CKD-EPI 2020) 66.19 (mL/min/1.73m2) 07/17/22 05:53 Calcium 9.0 mg/dL (8.5-10.1) 07/17/22 05:53 Glucose 106 mg/dL (74-106) 07/17/22 05:53 Liver Function Panel: No Data to Display Coagulation Panel: No Data to Display Cardiac Panel: No Data to Display Arterial Blood Gas: No Data to Display Venous Blood Gas: No Data to Display Pancreas Panel: No Data to Display Thyroid Panel: No Data to Display Infectious Disease: No Data to Display Blood Cultures: No Data to Display Toxicology Panel: No Data to Display Anesthesia Assessment and Plan Anesthesia History Personal History: No History of Anesthesia Complications Family History: No Family History of Anesthesia Complications Exercise Tolerance Exercise Tolerance: Metabolic Equivalents>4 Pertinent Negatives Pertinent Negatives: No Symptoms of GERD and No Major Pulmonary Symptoms or Complaints Cardiac & Pulmonary Exam Cardiac Exam: Normal S1/S2 Heart Sounds Pulmonary Exam: Clear Bilateral Breath Sounds Implantable Cardiac Device Does patient have a Pacemaker or an ICD?: No Airway Exam Known Difficult Airway: No Mallampati Class: 2 Mouth Opening: Normal (> 3cm) Thyromental Distance: Greater than 3 cm Neck Range of Motion: Full ROM Neck Circumference: Thick Teeth Condition: Generalized Poor Dentition ASA Classification ASA Score: ASA 3 Emergency Case?: No NPO Status NPO Status: NPO Clears >2 hours, Solids >8 hours Anesthesia Plan Resuscitation Status: Full Code Anesthesia Technique: General Anesthesia Airway Planned: Natural Airway Monitors Used: Standard Monitors Preoperative Comments:: Pt. states stents were placed years ago with no cardiac symptoms/issues since. [place] [facility] [place] reviewed recent and historic notes there and did not find any intervention or cardiology notes.
[2022-08-15 11:06] VITALS: BMI 32.6
--- NOTE | 2022-08-15 11:57 | BOWEL_PTH ---
PATIENT: Emmanuel Sylvester LOC: [facility] U#:[id number] AGE/SX: 82/M ROOM: RE08/15/[address]: Jai Nuñez MD : [id number] BED: DIS: 08/15/2022 SPEC #: [id number] RECD: 08/15/22 12:53 STATUS: DEBORAH RE #: [id number] BHARAT: 08/15/22 11:[address]: Jai Nuñez DEPT: Surgical Specimen RECD BY: Keyla Lee ENTERED: 08/15/22 12:54 SP TYPE: Bowel OTHR DR: Alfredo Burnett MD Tissues: 1 - BIOPSY BOWEL 2 - BIOPSY BOWEL Procedures: GROSS AND MICRO LEVEL 4 Comments: [id number]
[2022-08-15 12:17] VITALS: BP 139/71; PULSE 93; RESP 16; TEMP 36.4; O2SAT 94
--- NOTE | 2022-08-15 12:37 | W.ANESPOSTOP ---
Postoperative Evaluation Date, Time and Location Date Performed: 08/15/22 Time Performed: 12:22 Patient Location: Day Surgery Unit Vital Signs Most Recent Imported Vital Signs: Most Recent Vital Signs Temp Pulse Resp BP Pulse Ox 36.4 C L 93 H 16 139/71 94 08/15/22 12:17 08/15/22 12:17 08/15/22 12:17 08/15/22 12:17 08/15/22 12:17 Pain Score Most Recent Pain Score: Most Recent Pain Score Pain Level 0 08/15/22 12:17 Assessment Mental Status: Awake (Alert & Oriented to Patient Baseline) Airway and Respiratory Function: Patent airway with normal (patient baseline) respiratory exam Cardiovascular Function: Hemodynamically Stable Hydration Status: Adequately Hydrated Nausea & Vomiting: No Nausea or Vomiting Pain: Pt. Denies Any Pain Peripheral Nerve Block: Patient did not receive a nerve block
[2022-08-15 12:42] VITALS: BP 123/86; PULSE 80; RESP 16; TEMP 36.5; O2SAT 96
== END 2022-08-15 13:19 | disposition home or self-care (01) ==
PROVIDERS: PCP Family Medicine; Visit Provider Surgery
PROC: (CPT 45380; principal; 2022-08-15 11:30)
DX: K92.1 Melena (principal); K63.5 Polyp of colon; K57.30 Diverticulosis of large intestine without perforation or abscess without bleeding
CPT/HCPCS: 45380; 43235; 88305; J2704

== ENCOUNTER 2023-07-09 09:06 | Observation (INO) | payer MEDICARE, OTHER, SELFPAY ==
[2023-07-09] VITALS (41 sets, daily range): BP systolic 113–177; BP diastolic 52–92; PULSE 50–73; RESP 10–24; TEMP 36–37; O2SAT 94–99
--- NOTE | 2023-07-09 08:30 | RT.EKG_ITS ---
APPROVED REPORT Exam: Resting ECG Reason for Exam: Dizziness Patient Location: E HR:54 bpm ECG Measurements Heart Rate 54 AXIS FL 201 P 0 QRSd 112 QRS -51 QT 468 T -55 QTc 443 Conclusion Sinus bradycardia...rate< 60 Left anterior fascicular block...axis(240,-40), init forces inf Sinus bradycardia rate of 54 with left axis deviation and interventricular conduction delay with left anterior fascicular block. First-degree AV block also present. QTc within normal limits. Mild ST segment flattening V5 and V6. No ST segment elevations. Poor R wave progression. No prior for comp dominikson. Inferior T wave flattening and T wave inversion in aVF.
--- NOTE | 2023-07-09 09:15 | DI.CT_ITS ---
Exam(s) CT HEAD WO EXAM: CT HEAD WO CLINICAL HISTORY: Dizziness. TECHNIQUE: Imaging Protocol: Axial computed tomography images with coronal and sagittal reformatted images were created and reviewed COMPARISON: No exams were available for comparison FINDINGS: Ventricles and Extra axial spaces: Normal in size and morphology for the patient's age. Hemorrhage: None. Cerebral parenchyma: No evidence of acute infarct or mass. [id number] atrophy. Mild white ma tter changes of small vessel disease. Midline shift: None. Brainstem/Cerebellum: Normal. Calvarium: Normal. Visualized Paranasal sinuses/Mastoids: Mild mucosal thickening left maxillary sinus. Opacification o f a few ethmoid air cells. Mastoids are clear. Soft Tissues: Unremarkable. IMPRESSION: No acute intracranial process. RADIATION DOSE DELIVERED: Total DLP DATA REPOSITORY: All CT scans at this facility are submitted to the National Radiology Data Registry (NRDR) Dose Index Registry (DIR) with the [employer] (A[employer]). RADIATION OPTIMIZATION: All CT scans at this facility use at least one of these dose optimization te chniques: automated exposure control; mA and/or kV adjustment per patient size (includes targeted exa ms where dose is matched to clinical indication); or iterative reconstruction.
--- NOTE | 2023-07-09 09:15 | W.ED.GENAD ---
Discharge Plan Disposition Patient Disposition: Admit to [facility] Condition: Stable Discharge Details Clinical Impression: Dizziness Primary Care Provider: Alfredo Burnett ED Provider: Anila Sadler Home Meds and New Rx's Prescriptions: No Action tramadol 50 mg tablet 50 mg PO Q6H PRN (Reason: pain) Qty: 50 0RF Rx Instructions: may take along with tylenol or NSAIDs hydrochlorothiazide 12.5 mg tablet 12.5 mg PO DAILY Qty: 90 4RF Rx Instructions: 1 TAB DAILY metoprolol tartrate 25 mg tablet 25 mg PO BID Qty: 180 4RF Rx Instructions: 1 TAB BID omeprazole 20 mg capsule,delayed release(DR/EC) 20 mg PO QAM Qty: 90 4RF Rx Instructions: 1 TAB QAM flu vac qs 2020-(6 ms up) CD 60 mcg (15 mcg x 4)/0.5 mL suspension 0.5 ml IM ONCE Qty: 0.5 0RF aspirin [Ecotrin Low Strength] 81 MG tablet,delayed release (DR/EC) 81 mg PO DAILY Hold Instructions: Resume on 07/24/22. Resume if no bleeding x 1 week saw palmetto 450 MG capsule 450 mg PO BID CENTRUM SILVER ULTRA MEN'S TAB 1 EACH tablet 1 ea PO DAILY fluticasone propionate [Flonase] 16 GM spray,suspension 1 - 2 spry NS DAILY PRN Qty: 3 loratadine 10 mg tablet 10 mg PO DAILY Qty: 90 4RF Rx Instructions: 1 TAB DAILY simvastatin 20 mg tablet 20 mg PO HS Qty: 90 4RF Rx Instructions: 1 TAB hs potassium chloride 10 mEq tablet extended release 10 meq PO BID Qty: 180 4RF Rx Instructions: Klor Con brand medically necessary (it is the only kind he can swallow) Medical Decision Making 83-year-old male with a past medical history of hypertension, kidney stones, GI bleed, hernia repair cataracts presents to the ER with chief complaint of dizziness that began Sunday morning. Patient reports that he went and got up to the bathroom and fell off the toilet into the bathtub. He denies hitting his head he was able to catch himself. Since then the dizziness has persisted. He states that the room is spinning. Denies any recent head injuries. He also has associated nausea worsening symptoms with upon standing. He was having difficulty putting wood in the stove so called EMS for evaluation. On initial presentation, He has no facial droop, EOMs are intact, senior quality assurance specialist are equal bilaterally does have an ataxic gait upon standing. Intact dorsiflexion and pedal flexion. Denies any chest pain or headache. He reports decreased appetite for the last day due to the dizziness and nausea. Cardiac workup ordered including serial troponins, EKG PT PTT, proBNP urinalysis. Initially MRI ordered to rule out CVA however it is not available. Canceled CT without contrast ordered. Differential diagnosis includes but not limited to CVA, CAD, vertigo, anemia, GI bleed, UTI, dehydration EKG was reviewed by Dr. De Paz ER attending, old EKG available for review. 500 cc normal saline bolus ordered and 25 mg meclizine p.o. CBC shows no leukocytosis hemoglobin hematocrit within normal limits, 1201: Patient reevaluation he reports that he still little bit dizzy. He has been given 25 of meclizine and [address] head without contrast shows no intracranial mass no midline shift no intracranial hemorrhage, does have some mild hypodensities bilaterally which are nonspecific but compatible with changes of small vessel distal disease or lacunar infarctions. I will speak with hospitalist to recommend admission for observation and MRI tomorrow. I did discuss plan of care with patient who verbalized understanding is in agreement with the plan. He continues to be alert and oriented x 4 with no focal neurodeficits. 1223: Hospitalist paged. 1246: Spoke with Dr. Hernández who is on for hospitalist regarding patient case in details. He agrees to accept patient for admission for further eval and possible MRI to rule out CVA. Medical Records Medical records reviewed: Yes I reviewed the patient's medical records. Imaging Data Radiologic Study: Imaging: CT Scan Radiologist's impression: Age: 83 years old Clinical indication: Dizziness TECHNIQUE: Imaging protocol: Computed tomography of the head without contrast. COMPARISON: No relevant prior studies available. FINDINGS: Brain: No intracranial mass, midline shift, acute intracranial hemorrhage, nor abnormal extra-axial fluid collection seen. Mild hypodensities bilaterally, nonspecific, but compatible with changes of small vessel disease, lacunar infarctions. Cerebral ventricles: Mild prominence of ventricles, sulci suggesting mild volume loss. Paranasal sinuses: Partial opacification maxillary sinuses, ethmoid air cells bilaterally. Frontal sinus, sphenoid sinus appear mostly clear. Mastoid air cells: Visualized portions mastoid air cells, middle ear cavities included appear clear bilaterally. Orbital cavities: Possible postoperative changes orbits/globes of the eyes bilaterally. Bones/joints: Evidence of ossicle, possible variant projecting region of lateral/posterolateral aspect right occipital condyle along relationship with lateral mass C1 partially included. This could be related to variant or chronic trauma, appears chronic rather than acute. No new appearing displaced, depressed skull fracture seen. Soft tissues: Unremarkable. Vasculature: Arterial calcification. IMPRESSION: 1. No acute intracranial abnormality seen. Please see body of report findings. 2. ASPECTS ([place] Stroke Program Early CT Score) is 10. Lab Data Lab results reviewed: Yes I reviewed the patient's lab results. Labs: Laboratory Tests Range/Units 07/09/23 07/09/23 07/09/23 09:14 09:14 09:45 WBC (4.4-10.8) 10^3/uL 8.29 RBC (4.36-5.78) 10^6/uL 5.12 Hgb (13.5-17.5) g/dL 14.4 Hct (40.0-50.0) % 43.0 MCV (80-95) fL 84 MCH (27.0-33.0) pg 28.1 MCHC (32.0-36.0) % 33.5 RDW (11.8-14.1) % 13.1 Plt Count (130-400) 10^3/uL 279 MPV (8.0-11.0) fL 11.2 H Immature Gran % 0.2 Neutrophils % 73.9 Lymphocytes % 17.2 Monocytes % 7.4 Eosinophils % 0.8 Basophils % 0.5 Nucleated RBC % (0.0-0.3) % 0.0 Absolute Neutrophils (1.2-6.7) 10^3/uL 6.12 Absolute Lymphocytes (1.2-3.4) 10^3/uL 1.43 Absolute Monocytes (0.1-0.8) 10^3/uL 0.61 Absolute Eosinophils (0.0-0.7) 10^3/uL 0.07 Absolute Basophils (0.0-0.2) 10^3/uL 0.04 PT (9.1-11.1) sec 11.3 H INR (0.9-1.1) 1.1 APTT (23.6-32.8) sec 25.3 Sodium (136-145) mmol/L 141 Potassium (3.5-5.1) mmol/L 3.5 Chloride (98-107) mmol/L 101 Carbon Dioxide (21.0-32.0) mmol/L 28.3 Anion Gap (3-11) mmol/L 11.7 H BUN (7-18) mg/dL 12 Creatinine (0.70-1.30) mg/dL 1.2 Est GFR (CKD-EPI 2020) (mL/min/1.73m2) 59.26 Glucose (74-106) mg/dL 117 H Calcium (8.5-10.1) mg/dL 9.9 Magnesium (1.8-2.4) mg/dL 1.9 Total Bilirubin (0.2-1.0) mg/dL 0.7 AST (15-37) U/L 24 ALT (16-63) U/L 33 Alkaline Phosphatase (46-116) U/L 74 Troponin I (<or=60) ng/L < 50 NT-Pro-B Natriuret Pep Cancelled 180 Total Protein (6.4-8.2) g/dL 8.4 H Albumin (3.4-5.0) g/dL 3.9 Urine Color (Yellow) Yellow Urine Clarity (Clear) Clear Urine pH (5-8) 7.0 Ur Specific [place] (1.005-1.025) 1.020 Urine Protein (Negative) mg/dL 30 H Urine Ketones (Negative) mg/dL Negative Urine Blood (Negative) Trace-intact H Urine Nitrite (Negative) Negative Urine Bilirubin (Negative) Negative Urine Urobilinogen (Up to 0.2) mg/dL 0.2 Ur Leukocyte Esterase (Negative) Negative Urine RBC (0-2) HPF Negative Urine WBC (0-5) HPF 0-2 Ur Epithelial Cells (Negative) HPF Few Urine Crystals (Negative) HPF Negative Urine Bacteria (Negative) HPF Negative Urine Casts (Negative) LPF 0-2 Hyaline Urine Mucus (Negative) Trace Ur Culture Indicated? No Urine Glucose (Negative) mg/dL Negative HPI General Mode of arrival: EMS. Date/Time Provider Initiated Documentation: 07/09/23 09:10. Limitations to Documentation: no limitations. Information obtained by: patient, EMS, RN notes reviewed and old records reviewed. HPI Narrative: 83-year-old male with a past medical history of hypertension, kidney stones, GI bleed, hernia repair cataracts presents to the ER with chief complaint of dizziness that began Sunday morning. Patient reports that he went and got up to the bathroom and fell off the toilet into the bathtub. He denies hitting his head he was able to catch himself. Since then the dizziness has persisted. He states that the room is spinning. Denies any recent head injuries. He also has associated nausea worsening symptoms with upon standing. He was having difficulty putting wood in the stove so called EMS for evaluation. On initial presentation, He has no facial droop, EOMs are intact, senior quality assurance specialist are equal bilaterally does have an ataxic gait upon standing. Intact dorsiflexion and pedal flexion. Denies any chest pain or headache. He reports decreased appetite for the last day due to the dizziness and nausea. Related Data Home Medications Medication Instructions Recorded Confirmed aspirin 81 mg tablet,delayed 81 mg PO DAILY 11/16/12 07/09/23 release (Ecotrin Low Strength) saw palmetto 450 mg capsule 450 mg PO BID 11/16/12 07/09/23 Centrum Silver Ultra Men's Tab 1 ea PO DAILY 01/12/14 07/09/23 fluticasone propionate 50 1 - 2 spry NS DAILY PRN ##3 07/28/14 07/09/23 mcg/actuation nasal spray,suspension (Flonase) loratadine 10 mg tablet 10 mg PO DAILY #90 tab-caps 09/01/21 07/09/23 hydrochlorothiazide 12.5 mg tablet 12.5 mg PO DAILY #90 tab-caps 08/02/22 07/09/23 metoprolol tartrate 25 mg tablet 25 mg PO BID #180 tab-caps 08/02/22 07/09/23 omeprazole 20 mg capsule,delayed 20 mg PO QAM #90 tab-caps 08/02/22 07/09/23 release tramadol 50 mg tablet 50 mg PO Q6H PRN pain #50 tabs 08/02/22 07/09/23 simvastatin 20 mg tablet 20 mg PO HS #90 tab-caps 08/28/22 07/09/23 potassium chloride 10 mEq 10 meq PO BID #180 tab-caps 11/01/22 07/09/23 tablet,extended release Previous Rx's Medication Instructions Recorded loratadine 10 mg tablet 10 mg PO DAILY #90 tab-caps 09/01/21 hydrochlorothiazide 12.5 mg tablet 12.5 mg PO DAILY #90 tab-caps 08/02/22 metoprolol tartrate 25 mg tablet 25 mg PO BID #180 tab-caps 08/02/22 omeprazole 20 mg capsule,delayed 20 mg PO QAM #90 tab-caps 08/02/22 release tramadol 50 mg tablet 50 mg PO Q6H PRN pain #50 tabs 08/02/22 simvastatin 20 mg tablet 20 mg PO HS #90 tab-caps 08/28/22 potassium chloride 10 mEq 10 meq PO BID #180 tab-caps 11/01/22 tablet,extended release Allergies Allergy/AdvReac Type Severity Reaction Status Date / Time birch Allergy Unknown Verified 07/09/23 09:17 chocolate flavor AdvReac Diarrhea Verified 07/09/23 09:17 clindamycin AdvReac DIARRHEA Verified 07/09/23 09:17 DUST Allergy Unknown Uncoded 07/09/23 09:17 MOLDS AND SMUT Allergy Unknown Uncoded 07/09/23 09:17 PINE TREE Allergy Unknown Uncoded 07/09/23 09:17 RAGWEED Allergy Unknown Uncoded 07/09/23 09:17 General Stated Complaint: Dizzy/Sync MALLIKA: 3 Review of Systems All systems reviewed & are unremarkable except as noted in HPI and below Constitutional Constitutional: Reports as per HPI, Denies headache(s) (Denies), Reports lethargy and Reports poor appetite Eyes Eyes: Denies loss of vision ENT Ears, Nose, Mouth, and Throat: Reports dizziness and Denies headache(s) (Denies) Cardiovascular Cardiovascular: Denies chest pain, Denies leg edema and Denies dyspnea Respiratory Respiratory: Denies dyspnea Gastrointestinal Gastrointestinal: Denies diarrhea and Reports nausea Musculoskeletal Musculoskeletal: Reports abnormal gait Neurologic Neurologic: Denies abnormal speech, Reports abnormal gait, Reports dizziness, Denies headache(s) (Denies), Reports lack of coordination, Denies loss of vision and Denies radicular pain PFSH All Active Problems (Updated 07/09/23 @ 13:09 by Teresa Ricci NP) Dizziness (Acute) Hyperplastic colon polyp (Acute) Tubular adenoma of colon (Acute) Diverticulitis (Chronic) Acute GI bleeding (Acute) Ceruminosis (Acute) Dental caries (Acute) Chronic pain syndrome (Chronic) Bladder stone (Acute) Calcium nephrolithiasis (Acute) w/ hydronephrosis and BRIELLE (creat 1.8) Diverticulosis (Acute ~07/2018) Left inguinal hernia (Acute ~07/2018) 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 Skin lesion of cheek (Acute 08/06/15) Medical History HTN (hypertension) Kidney stones Surgical History History of colonoscopy (~08/2022) Open Carpal Tunnel release (08/14/14) LEFT/DR LUIS HERNIA REPAIR X 2 Extraction of cataract B/L Family History Mother Diabetes Essential hypertension Heart disease Father Essential hypertension Personal history of malignant neoplasm COLON/SKIN Heart disease Hyperlipidemia Asthma Maternal Grandmother Essential hypertension Heart disease Stroke Esophageal cancer Sister Essential hypertension Hyperlipidemia Social History Smoking/Tobacco Use Status: Former Tobacco Use tobacco type: pipe and cigars Quit Date: 07/09/59 Tobacco: How many years used: 2 Second Hand Exposure: No Smoking risk assessment performed?: Yes Alcohol Intake: former Drug use: Never Substance use type: does not use Caregiver/Support person: No Household members: none Communication Needs: None Pets and animals: No Sexually active: No Do you think of yourself as: straight/heterosexual Current gender identity: male What is your relationship status?: How often do you talk on the phone with friends or family?: three or more times per week How often do you get together with friends or relatives?: three or more times per week How often do you attend catholic or anglican services?: 4 or more times per year Do you belong to any clubs or organized social groups?: no Panel score (0-1 are the most socially isolated patients): 2 What type of physical activity do you participate in: walking Duration: < 15 minutes/day Frequency: 1-2 times per week Barby/Anglican: None Special barby needs: No Seatbelt use: always Helmet use: No Drive intox or ride w/intox lunch truck driver: No Do you feel safe at home: Yes Do you feel safe in your relationship?: Yes Exam Narrative Exam Narrative: Constitutional: Alert and oriented x3. Appears stated age. Normal body habitus. Head: Normocephalic, no trauma. Eyes: , EOM's intact. Eyelids symmetrical without lesions, discharge, or swelling. ENT: Bilateral TM's WNL, External ear normal to inspection, no mastoid TTP, swelling, or erythema, Nasal turbinates WNL, no nasal discharge. Normal dentition, Posterior pharynx WNL, no exudate. Chest: RRR, Normal S1, S2, distal pulses intact. Resp: Lungs clear to auscultation bilaterally, no wheezes, rales, or rhonchi. Abdomen: Soft, non-distended, Normoactive bowel sounds all 4 quads. Musculoskeletal: Ataxic gait, 5/5 strength to all four extremities. Skin: No suspicious rashes or lesions. Capillary refill less than 2 sec. Neurologic: Cranial nerves II-XII intact. Alert and oriented x 3. Motor: No deficits noted. Patient does have some double vision at baseline due to a extraction of cataract to his left eye. No facial droop no slurred speech. No pronator drift noted. Intact dorsal pedal flexion and extension. Hematologic/Lymphatic: No ecchymosis, no lymphadenopathy. Course Vital Signs Vital signs: Vital Signs Temperature 36.6 C 07/09/23 09:04 Pulse 73 07/09/23 09:04 Respiratory Rate 12 07/09/23 09:04 Blood Pressure 177/79 H 07/09/23 09:04 Pulse Oximetry 94 07/09/23 09:04 Temperature 36.6 C 07/09/23 09:04 Temperature Source Temporal Artery Scan 07/09/23 09:04 Pulse 73 07/09/23 09:04 Respiratory Rate 12 07/09/23 09:04 Blood Pressure 177/79 H 07/09/23 09:04 Blood Pressure Position Sitting 07/09/23 09:04 Pulse Oximetry 94 07/09/23 09:04 Oxygen Delivery Method Room Air 07/09/23 09:04 Oxygen Flow Rate 0 07/09/23 09:04 Pain Level 0 07/09/23 09:04
--- NOTE | 2023-07-09 09:15 | DI.RAD_ITS ---
Exam(s) XR CHEST 2V PA LATERAL EXAM: XR CHEST 2V PA LATERAL CLINICAL HISTORY: Dizziness, nausea TECHNIQUE: 2D digital imaging was performed. COMPARISON: CR CHEST 2 VIEWS AP LAT from 01/01/2014 FINDINGS: HEART: Normal size. Aorta: Not dilated. PULMONARY VASCULATURE: Normal. LUNGS: Clear. PLEURAL SPACE: No pleural effusion or pneumothorax. BONE:Unre stable mild compression fractures and degenerative changes. Soft tissues: Hiatal hernia. IMPRESSION: No acute abnormality. DATA REPOSITORY: RADIATION DOSE DELIVERED:
[2023-07-09 09:24] LABS: Abs Immature Grans 0.02 10^3/uL (0.0-0.06); Absolute Basophil Count 0.04 10^3/uL (0.0-0.2); Absolute Eosinophil Count 0.07 10^3/uL (0.0-0.7); Absolute Lymphocyte Count 1.43 10^3/uL (1.2-3.4); Absolute Monocyte Count 0.61 10^3/uL (0.1-0.8); Absolute Neutrophil Count 6.12 10^3/uL (1.2-6.7); Basophils % 0.5; Eosinophils % 0.8; HGB 14.4 g/dL (13.5-17.5); Immature Grans % 0.2; Lymphocytes % 17.2; MCH 28.1 pg (27.0-33.0); MCHC 33.5 % (32.0-36.0); MCV 84 fL (80-95); MPV 11.2 fL (8.0-11.0); Monocytes % 7.4; Neutrophils % 73.9; Platelet Count 279 10^3/uL (130-400); RBC 5.12 10^6/uL (4.36-5.78); RDW 13.1 % (11.8-14.1); RDW-SD 40.1 fL; WBC 8.29 10^3/uL (4.4-10.8)
[2023-07-09] MEDS: Meclizine 25 MG TAB PO (09:24)
[2023-07-09] MEDS: Normal Saline 500 ML IV (09:25)
[2023-07-09 09:33] LABS: INR 1.1 (0.9-1.1); PTT Activated 25.3 sec (23.6-32.8); Prothrombin Time 11.3 sec (9.1-11.1)
[2023-07-09 09:41] LABS: ALT 33 U/L (16-63); AST 24 U/L (15-37); Albumin 3.9 g/dL (3.4-5.0); Alkaline Phosphatase 74 U/L (46-116); Anion Gap 11.7 mmol/L (3-11); BUN 12 mg/dL (7-18); Bilirubin, Total 0.7 mg/dL (0.2-1.0); CO2 28.3 mmol/L (21.0-32.0); CREATININE 1.2 mg/dL (0.70-1.30); Calcium 9.9 mg/dL (8.5-10.1); Chloride 101 mmol/L (98-107); Estimated GFR 59.26 (mL/min/1.73m2); Glucose 117 mg/dL (74-106); Magnesium 1.9 mg/dL (1.8-2.4); Potassium 3.5 mmol/L (3.5-5.1); Sodium 141 mmol/L (136-145); Total Protein 8.4 g/dL (6.4-8.2); Troponin I < 50 ng/L (<or=60)
[2023-07-09 09:57] LABS: Bilirubin Negative (Negative); Blood Trace-intact (Negative); Clarity Clear (Clear); Glucose Negative (Negative); Ketones Negative (Negative); Leukocyte Esterase Negative (Negative); Nitrite Negative (Negative); Urobilinogen 0.2 mg/dL (Up to 0.2)
[2023-07-09 10:01] LABS: NT-proBNP 180 pg/mL (<300)
[2023-07-09 10:10] LABS: Bacteria Negative HPF (Negative); Crystals Negative HPF (Negative); Epithelial Cells Few HPF (Negative); Mucus Trace (Negative); RBC Negative HPF (0-2); WBC 0-2 HPF (0-5)
[2023-07-09 10:11] LABS: C & S Indicated? No; Casts 0-2 Hyaline LPF (Negative)
--- NOTE | 2023-07-09 11:28 | DI.VRAD_ITS ---
PROCEDURE INFORMATION: Exam: CT Head Without Contrast Exam date and time: 07/09/2023 10:42 AM Age: 83 years old Clinical indication: Dizziness TECHNIQUE: Imaging protocol: Computed tomography of the head without contrast. COMPARISON: No relevant prior studies available. FINDINGS: Brain: No intracranial mass, midline shift, acute intracranial hemorrhage, nor abnormal extra-axial fluid collection seen. Mild hypodensities bilaterally, nonspecific, but compatible with changes of small vessel disease, lacunar infarctions. Cerebral ventricles: Mild prominence of ventricles, sulci suggesting mild volume loss. Paranasal sinuses: Partial opacification maxillary sinuses, ethmoid air cells bilaterally. Frontal sinus, sphenoid sinus appear mostly clear. Mastoid air cells: Visualized portions mastoid air cells, middle ear cavities included appear clear bilaterally. Orbital cavities: Possible postoperative changes orbits/globes of the eyes bilaterally. Bones/joints: Evidence of ossicle, possible variant projecting region of lateral/posterolateral aspect right occipital condyle along relationship with lateral mass C1 partially included. This could be related to variant or chronic trauma, appears chronic rather than acute. No new appearing displaced, depressed skull fracture seen. Soft tissues: Unremarkable. Vasculature: Arterial calcification. IMPRESSION: 1. No acute intracranial abnormality seen. Please see body of report findings. 2. ASPECTS ([place] Stroke Program Early CT Score) is 10. Dictated and Authenticated by: Emmanuel Thompson MD. Ordering:JENNIFER High MD
--- NOTE | 2023-07-09 11:39 | DI.VRAD_ITS ---
PROCEDURE INFORMATION: Exam: XR Chest Exam date and time: 07/09/2023 10:51 AM Age: 83 years old Clinical indication: Other: Dizziness, nausea TECHNIQUE: Imaging protocol: Radiologic exam of the chest. Views: 2 views. COMPARISON: CT ABDOMEN PELVIS W 07/16/2022 6:41 AM FINDINGS: Lungs: Nearly apical lordotic projection on the AP view. No focal infiltrates seen of visualized portions of lungs. Pleural spaces: Lower most portion of posterior costophrenic angle inferiorly not completely included and portions of thorax obscured by patient's arms on the lateral view. No large or obvious pneumothorax nor pleural effusion seen of visualized portions thorax. Heart/Mediastinum: Large hiatal hernia. Heart size appears upper limits of normal. Vasculature: Atherosclerotic disease aorta. Bones/joints: Degenerative changes spine. IMPRESSION: No acute findings seen in the chest. Large hiatal hernia. Dictated and Authenticated by: Emmanuel Thompson MD. Ordering:JENNIFER High MD
[2023-07-09] MEDS: Aspirin 81 MG CHEW 324 MG CH (11:57)
[2023-07-09 12:49] LABS: Troponin I < 50 ng/L (<or=60)
--- NOTE | 2023-07-09 12:58 | W.PM.HP.N ---
Date of service: 07/09/23 Time of Service: 12:59 Assessment and Plan Assessment and plan (1) Dizziness: Status: Acute Assessment and plan: did not respond to meclizine in the ED. CT head with FINDINGS: Brain: No intracranial mass, midline shift, acute intracranial hemorrhage, nor abnormal extra-axial fluid collection seen. Mild hypodensities bilaterally, nonspecific, but compatible with changes of small vessel disease, lacunar infarctions. Symptoms are most consistent with benign paroxysmal positional vertigo. Will place PT consult. Continue meclizine (2) CVA (cerebral vascular accident): Status: Suspected Assessment and plan: referred to observation for stroke rule out. see above. place on telemetry, MRI and echo when available neuro checks q4h continue asa and statin. consider neurology consultation depending on MRI results fall precautions PT for [place] Hallpike and Olya maneuver if appropriate Discussed with Dr. Hernández History of Present Illness History of Present Illness Chief Complaint: dizziness Review of Systems All systems reviewed & are unremarkable except as noted in HPI and below PFSH All Active Problems (Updated 07/10/23 @ 18:58 by Teresa Ricci NP) BPPV (benign paroxysmal positional vertigo) (Acute) Dizziness (Acute) Hyperplastic colon polyp (Acute) Tubular adenoma of colon (Acute) Diverticulitis (Chronic) Acute GI bleeding (Acute) Ceruminosis (Acute) Dental caries (Acute) Chronic pain syndrome (Chronic) Bladder stone (Acute) Calcium nephrolithiasis (Acute) w/ hydronephrosis and BRIELLE (creat 1.8) Diverticulosis (Acute ~07/2018) Left inguinal hernia (Acute ~07/2018) 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 Allergic rhinitis (Acute) Essential hypertension (Acute 07/17/13) Gastroesophageal reflux (Acute) Hyperlipidemia (Acute) Joint pain (Acute) DJD Kidney stone on left side (Acute 12/18/14) 12/18/14 [facility] stented and removed 07/29/18 WITH HYDRONEPHROSIS Lumbago (Acute) L 5 compression fx; Low back pain (Acute) L 5 compression fx; Neoplasm of unspecified nature of bone, soft tissue, 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) Obstructive sleep apnea syndrome (Acute) severe; CPAP (inital studies 2007 [facility] and [facility]) Skin lesion of cheek (Acute 08/06/15) Medical History HTN (hypertension) Kidney stones Surgical History History of colonoscopy (~08/2022) Open Carpal Tunnel release (08/14/14) LEFT/DR LUIS HERNIA REPAIR X 2 Extraction of cataract B/L Family History Mother Diabetes Essential hypertension Heart disease Father Essential hypertension Personal history of malignant neoplasm COLON/SKIN Heart disease Hyperlipidemia Asthma Maternal Grandmother Essential hypertension Heart disease Stroke Esophageal cancer Sister Essential hypertension Hyperlipidemia Social History Smoking/Tobacco Use Status: Former Tobacco Use tobacco type: pipe and cigars Quit Date: 07/09/59 Tobacco: How many years used: 2 Second Hand Exposure: No Smoking risk assessment performed?: Yes Alcohol Intake: former Drug use: Never Substance use type: does not use Caregiver/Support person: No Household members: none Housing: house Communication Needs: None Pets and animals: No Sexually active: No Do you think of yourself as: straight/heterosexual Current gender identity: male What is your relationship status?: How often do you talk on the phone with friends or family?: three or more times per week How often do you get together with friends or relatives?: three or more times per week How often do you attend nondenominational or jehovah's witness services?: 4 or more times per year Do you belong to any clubs or organized social groups?: no Panel score (0-1 are the most socially isolated patients): 2 What type of physical activity do you participate in: walking Duration: < 15 minutes/day Frequency: 1-2 times per week Barby/Mormonism: None Special barby needs: No Seatbelt use: always Helmet use: No Drive intox or ride w/intox speedboat driver: No Do you feel safe at home: Yes Do you feel safe in your relationship?: Yes Meds Allergies and Home Medications Allergies Allergy/AdvReac Type Severity Reaction Status Date / Time birch Allergy Unknown Verified 07/09/23 09:17 chocolate flavor AdvReac Diarrhea Verified 07/09/23 09:17 clindamycin AdvReac DIARRHEA Verified 07/09/23 09:17 DUST Allergy Unknown Uncoded 07/09/23 09:17 MOLDS AND SMUT Allergy Unknown Uncoded 07/09/23 09:17 PINE TREE Allergy Unknown Uncoded 07/09/23 09:17 RAGWEED Allergy Unknown Uncoded 07/09/23 09:17 Home Medications Medication Instructions Recorded Confirmed Type aspirin 81 mg tablet,delayed 81 mg PO DAILY 11/16/12 07/09/23 History release (Ecotrin Low Strength) saw palmetto 450 mg capsule 450 mg PO BID 11/16/12 07/09/23 History Centrum Silver Ultra Men's Tab 1 ea PO DAILY 01/12/14 07/09/23 History fluticasone propionate 50 1 - 2 spry NS DAILY PRN ##3 07/28/14 07/09/23 History mcg/actuation nasal spray,suspension (Flonase) flu vac qs 2020-(6 ms up) CD 60 0.5 ml IM ONCE #0.5 mL 06/17/21 07/09/23 Clinic mcg (15 mcg x 4)/0.5 mL IM susp loratadine 10 mg tablet 10 mg PO DAILY #90 tab-caps 09/01/21 07/09/23 Rx hydrochlorothiazide 12.5 mg tablet 12.5 mg PO DAILY #90 tab-caps 08/02/22 07/09/23 Rx metoprolol tartrate 25 mg tablet 25 mg PO BID #180 tab-caps 08/02/22 07/09/23 Rx omeprazole 20 mg capsule,delayed 20 mg PO QAM #90 tab-caps 08/02/22 07/09/23 Rx release tramadol 50 mg tablet 50 mg PO Q6H PRN pain #50 tabs 08/02/22 07/09/23 Rx simvastatin 20 mg tablet 20 mg PO HS #90 tab-caps 08/28/22 07/09/23 Rx potassium chloride 10 mEq 10 meq PO BID #180 tab-caps 11/01/22 07/09/23 Rx tablet,extended release meclizine 12.5 mg tablet 12.5 mg PO TID PRN Dizziness #20 07/10/23 Rx tabs Exam Narrative Exam Narrative: Pleasant elderly male lying in bed. He is conversant and non-toxic appearing. Const General: cooperative and no acute distress Nutritional Appearance: obese Orientation: alert and oriented x3 Eyes Alignment and Position: alignment normal Eyelids: eyelid abnormality left upper eyelid (ptosis) Sclera: sclerae normal EOM: nystagmus Resp Effort & Inspection: normal respiratory effort Auscultation: clear to auscultation bilaterally Cardio Rate: regular rate Rhythm: regular rhythm Heart Sounds: S1 normal and S2 normal GI Inspection: non-distended Palpation: soft and nontender Skin General skin exam: no rashes or lesions noted and other (Large number of seborrheic karatoses on face and torso) Neuro General: patient alert, patient awake, patient oriented x3, no focal motor deficits and CN's II-XI intact bilaterally Cranial Nerves: nystagmus Motor: muscle tone normal throughout and strength 5/5 throughout Sensory Exam: no sensory deficits noted Coordination: [id number] test normal and rapid alternating movement UE normal Extrem General: no pedal edema and no calf tenderness Psych Appearance: grossly normal Mental Status: mental status grossly normal Speech and Movement: speech and movement normal Mood: congruent mood Affect: normal affect Results Labs 07/09/23 09:14 07/09/23 09:14 Labs: Laboratory Results - last 24 hr 07/09/23 07/09/23 07/09/23 09:14 09:14 09:45 WBC 8.29 RBC 5.12 Hgb 14.4 Hct 43.0 MCV 84 MCH 28.1 MCHC 33.5 RDW 13.1 Plt Count 279 MPV 11.2 H Immature Gran % 0.2 Neutrophils % 73.9 Lymphocytes % 17.2 Monocytes % 7.4 Eosinophils % 0.8 Basophils % 0.5 Nucleated RBC % 0.0 Absolute Neutrophils 6.12 Absolute Lymphocytes 1.43 Absolute Monocytes 0.61 Absolute Eosinophils 0.07 Absolute Basophils 0.04 PT 11.3 H INR 1.1 APTT 25.3 Sodium 141 Potassium 3.5 Chloride 101 Carbon Dioxide 28.3 Anion Gap 11.7 H BUN 12 Creatinine 1.2 Est GFR (CKD-EPI 2020) 59.26 Glucose 117 H Calcium 9.9 Magnesium 1.9 Total Bilirubin 0.7 AST 24 ALT 33 Alkaline Phosphatase 74 Troponin I < 50 NT-Pro-B Natriuret Pep Cancelled 180 Total Protein 8.4 H Albumin 3.9 Urine Color Yellow Urine Clarity Clear Urine pH 7.0 Ur Specific [place] 1.020 Urine Protein 30 H Urine Ketones Negative Urine Blood Trace-intact H Urine Nitrite Negative Urine Bilirubin Negative Urine Urobilinogen 0.2 Ur Leukocyte Esterase Negative Urine RBC Negative Urine WBC 0-2 Ur Epithelial Cells Few Urine Crystals Negative Urine Bacteria Negative Urine Casts 0-2 Hyaline Urine Mucus Trace Ur Culture Indicated? No Urine Glucose Negative 07/09/23 12:20 WBC RBC Hgb Hct MCV MCH MCHC RDW Plt Count MPV Immature Gran % Neutrophils % Lymphocytes % Monocytes % Eosinophils % Basophils % Nucleated RBC % Absolute Neutrophils Absolute Lymphocytes Absolute Monocytes Absolute Eosinophils Absolute Basophils PT INR APTT Sodium Potassium Chloride Carbon Dioxide Anion Gap BUN Creatinine Est GFR (CKD-EPI 2020) Glucose Calcium Magnesium Total Bilirubin AST ALT Alkaline Phosphatase Troponin I < 50 NT-Pro-B Natriuret Pep Total Protein Albumin Urine Color Urine Clarity Urine pH Ur Specific [place] Urine Protein Urine Ketones Urine Blood Urine Nitrite Urine Bilirubin Urine Urobilinogen Ur Leukocyte Esterase Urine RBC Urine WBC Ur Epithelial Cells Urine Crystals Urine Bacteria Urine Casts Urine Mucus Ur Culture Indicated? Urine Glucose Last Vital Signs Temp 36.6 C 07/09/23 09:04 Pulse 56 L 07/09/23 12:31 Resp 19 07/09/23 12:40 BP 147/78 H 07/09/23 12:31 Pulse Ox 99 07/09/23 09:30 Time Spent Time spent with Patient: 40-54 minutes Time was spent: preparing to see the patient(eg.review tests), obtaining and/or reviewing separately otained hiistory, ordering medications,tests, procedures, indepentently interpreting results and counseling the patient
[2023-07-09] MEDS: Meclizine 12.5 MG TAB 25 MG PO ×2 (16:26→20:33)
[2023-07-09] MEDS: Normal Saline Flush 10 ML SYR IVP (20:33)
[2023-07-09] MEDS: Potassium Chloride 10 MEQ TABCR PO (20:33)
[2023-07-09] MEDS: Simvastatin 20 MG TAB PO (21:37)
--- NOTE | 2023-07-10 | DI.MRI_ITS ---
Exam(s) MR ANGIO BRAIN WO CLINICAL HISTORY: CVA r/o. TECHNIQUE: Multiplanar multisequence MRA of the brain was performed. COMPARISON: CT CT HEAD WO from 07/09/2023 FINDINGS: Carotid Arteries: No aneurysm, occlusion or significant stenosis. Anterior Cerebral Arteries: Right: No aneurysm, occlusion or significant stenosis. Left: No aneurysm, occlusion or significant stenosis. Middle Cerebral Arteries: Right: No aneurysm, occlusion or significant stenosis. Left: No aneurysm, occlusion or significant stenosis. Posterior Cerebral Arteries: Right: No aneurysm, occlusion or significant stenosis. Left: No aneurysm, occlusion or significant stenosis. Vertebral Arteries: Right: No aneurysm, occlusion or significant stenosis. Left: No aneurysm, occlusion or significant stenosis. Basilar Artery: No aneurysm, occlusion or significant stenosis. IMPRESSION: No evidence of occlusion or significant stenosis. DATA REPOSITORY:
--- NOTE | 2023-07-10 | DI.MRI_ITS ---
Exam(s) MR BRAIN WO EXAM: MR BRAIN WO CLINICAL HISTORY: CVA r/o TECHNIQUE: Multiplanar multisequence MRI of the brain was performed. COMPARISON: CT CT HEAD WO from 07/09/2023 FINDINGS: VENTRICLES AND EXTRA AXIAL SPACES: Normal in size and morphology for the patient's age. MIDLINE SHIFT: None. CEREBRAL PARENCHYMA: No focus of restricted diffusion to suggest acute infarct. No space-occupying le eric identified. There are several areas of hyperintense signal seen in the white matter on the FLAIR and T2 weighted images most consistent with small vessel ischemic disease. HEMORRHAGE: None. BRAINSTEM/CEREBELLUM: Normal. CALVARIUM: Normal. VISUALIZED PARANASAL SINUSES/MASTOIDS:Mild mucosal thickening in the ethmoid air cells bilaterally. The remaining visualized paranasal sinuses and mastoid air cells are clear. [place] OF SEAY: Normal flow void. PITUITARY GLAND: Unremarkable. OTHER FINDINGS: None. IMPRESSION: 1. No evidence of an acute infarct. 2. Age-appropriate cerebral atrophy and small vessel ischemic disease. DATA REPOSITORY:
--- NOTE | 2023-07-10 | DI.MRI_ITS ---
Exam(s) MR ANGIO NECK WO EXAM: MR ANGIO NECK WO CLINICAL HISTORY: cva r/o. TECHNIQUE: Multiplanar multisequence MRA of the Neck was performed. COMPARISON: No exams were available for comparison FINDINGS: There is mild patient motion artifact. Common Carotid: Right: No dissection, occlusion or significant stenosis. Left: No dissection, occlusion or significant stenosis. External Carotid: Right: No evidence of occlusion or significant stenosis. Left: No evidence of occlusion or significant stenosis. Internal Carotid: Right: No dissection, occlusion or significant stenosis. Left: No dissection, occlusion or significant stenosis. Vertebral Artery: Right: No dissection, occlusion or significant stenosis. Left: No dissection, occlusion or significant stenosis. The visualized paraspinal soft tissues are unremarkable. IMPRESSION: No evidence of dissection, occlusion or significant stenosis. DATA REPOSITORY:
[2023-07-10 03:20] VITALS: BP 147/77; PULSE 60; RESP 16; TEMP 36.6; O2SAT 95
[2023-07-10] MEDS: Omeprazole 20 MG CAPCR PO (07:05)
[2023-07-10 07:14] VITALS: BP 151/73; PULSE 59; RESP 18; TEMP 36.8; O2SAT 94
[2023-07-10] MEDS: Multivitamin TAB 1 TAB PO (07:40)
[2023-07-10] MEDS: hydroCHLOROthiazide 12.5 MG TAB PO (07:40)
[2023-07-10] MEDS: Loratidine 10 MG TAB PO (07:40)
[2023-07-10] MEDS: Meclizine 12.5 MG TAB 25 MG PO ×2 (07:40→13:58)
[2023-07-10] MEDS: Potassium Chloride 10 MEQ TABCR PO (07:40)
[2023-07-10] MEDS: Aspirin E.C. 81 MG TABEC PO (07:40)
[2023-07-10] MEDS: Normal Saline Flush 10 ML SYR IVP (07:42)
--- NOTE | 2023-07-10 08:06 | INITIAL_ITS ---
Date of service: 07/10/23 Time of Service: 08:06 Care Management Initial Assmt Initial Assessment REASON FOR HOSPITALIZATION:: Dizziness PREVIOUS FUNCTIONAL STATUS/SOCIAL/FAMILY SUPPORTS:: Emmanuel lives alone in a single family home in [place], [place] He moved there from [facility] about 20 years ago with his . She has since . He has 2 daughters; one lives in [place], [place]. and the other lives in [place]. Emmanuel also has 2 sons; one lives in [place], [place] and the other is in [place]. 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 He is independent at baseline and does not receive any community services. Emmanuel does not have any close relatives in the area but has a good friend/neighbor that he sees often who helps with rides and whatever else Emmanuel needs. CURRENT FUNCTIONAL STATUS:: Emmanuel was sitting up in bed when CM met with him. He was pleasant and engaged easily with CM. He stated that he is feeling much better but still has a bit of dizziness. He was waiting for test results (MRI and ECHO) to determine if he can be discharged. ADVANCE DIRECTIVES:: States he has AD; not on file Has patient been provided with info about the portal/API?: Yes Did the patient sign up for the portal?: No CODE STATUS:: Full Code INSURANCE COVERAGE / FINANCIAL ISSUES:: Medicare [employer] CURRENT HOME/COMMUNITY SERVICES/EQUIPMENT:: none PRIMARY CARE PHYSICIAN:: Alfredo Burnett POTENTIAL DISCHARGE NEEDS:: Follow up with PCP and plan of care as prescribed PATIENT/FAMILY EDUCATION NEEDS:: Review of discharge instructions, activity, limitations, diet, follow up plan, discuss Ask Me Three TRANSPORTATION:: via private vehicle with friend PLAN:: Emmanuel will be discharged home with no new services. He will follow up with community providers and plan of care and transport with a friend. PFSH All Active Problems (Updated 07/09/23 @ 13:09 by Teresa Ricci NP) Dizziness (Acute) Hyperplastic colon polyp (Acute) Tubular adenoma of colon (Acute) Diverticulitis (Chronic) Acute GI bleeding (Acute) Ceruminosis (Acute) Dental caries (Acute) Chronic pain syndrome (Chronic) Bladder stone (Acute) Calcium nephrolithiasis (Acute) w/ hydronephrosis and BRIELLE (creat 1.8) Diverticulosis (Acute ~07/2018) Left inguinal hernia (Acute ~07/2018) 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 Allergic rhinitis (Acute) Essential hypertension (Acute 07/17/13) Gastroesophageal reflux (Acute) Hyperlipidemia (Acute) Joint pain (Acute) DJD Kidney stone on left side (Acute 12/18/14) 12/18/14 [facility] stented and removed 07/29/18 WITH HYDRONEPHROSIS Lumbago (Acute) L 5 compression fx; Low back pain (Acute) L 5 compression fx; Neoplasm of unspecified nature of bone, soft tissue, 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) Obstructive sleep apnea syndrome (Acute) severe; CPAP (inital studies 2007 [facility] and [facility]) Skin lesion of cheek (Acute 08/06/15) Medical History HTN (hypertension) Kidney stones Surgical History History of colonoscopy (~08/2022) Open Carpal Tunnel release (08/14/14) LEFT/DR LUIS HERNIA REPAIR X 2 Extraction of cataract B/L Family History Mother Diabetes Essential hypertension Heart disease Father Essential hypertension Personal history of malignant neoplasm COLON/SKIN Heart disease Hyperlipidemia Asthma Maternal Grandmother Essential hypertension Heart disease Stroke Esophageal cancer Sister Essential hypertension Hyperlipidemia Social History Smoking/Tobacco Use Status: Former Tobacco Use tobacco type: pipe and cigars Quit Date: 07/09/59 Tobacco: How many years used: 2 Second Hand Exposure: No Smoking risk assessment performed?: Yes Alcohol Intake: former Drug use: Never Substance use type: does not use Caregiver/Support person: No Household members: none Housing: house Communication Needs: None Pets and animals: No Sexually active: No Do you think of yourself as: straight/heterosexual Current gender identity: male What is your relationship status?: How often do you talk on the phone with friends or family?: three or more times per week How often do you get together with friends or relatives?: three or more times per week How often do you attend cheondoism or cheondoism services?: 4 or more times per year Do you belong to any clubs or organized social groups?: no Panel score (0-1 are the most socially isolated patients): 2 What type of physical activity do you participate in: walking Duration: < 15 minutes/day Frequency: 1-2 times per week Barby/Christian: None Special barby needs: No Seatbelt use: always Helmet use: No Drive intox or ride w/intox drivers license examiner: No Do you feel safe at home: Yes Do you feel safe in your relationship?: Yes
--- NOTE | 2023-07-10 10:38 | NUR.NOTE ---
Nursing Note: At approximately 1035 on 07/10/23, this RN returned a call from Teresa Galvan (pt.'s daughter; on HIPAA). RN updated pt.'s daughter regarding how the pt.'s morning has gone thus far, pt.'s head to toe assessment, plan of care, including ECHO and MRI and PT and Neurology consults, etc. Pt.'s daughter verbalized understanding and presented with a few questions that were answered. Pt.'s daughter stated that she would be coming up this weekend to help make sure everything is in order for her father. Pt.'s daughter then thanked this RN for the update. RN encouraged pt.'s daughter to call with any other concerns or questions. Call then ended.
[2023-07-10 10:48] VITALS: BP 154/88; PULSE 71; RESP 16; TEMP 35.9; O2SAT 97
--- NOTE | 2023-07-10 11:00 | DI.US_ITS ---
APPROVED REPORT EXAM: Comprehensive 2D, Doppler, and color-flow Echocardiogram Patient Location: In-Patient Room/Bed: [facility] [employer] Team Member: Yair Winchester RDCS (AE) Indications: dizziness, HTN Other Information Study Quality: Adequate. Technically limited study due to inability to position patient, patient inab ility to perform breathing maneuvers. Conclusion 1. Normal chamber sizes. 2. Borderline normal LV systolic function, EF 50-55%.Grade 1 diastolic dysfunction 3. Anatomically normal valves. No significant regurgitation or stenosis. 4. No intracardiac shunt. 5. No pericardial effusion. Wall motion Left Ventricle The left ventricle is normal size. Left ventricular systolic function is borderline. There is normal left ventricular wall thickness. There is mild global hypokinesis of the left ventricle. There is no ventricular septal defect visualized. LVEF is 50-55%. Right Ventricle The right ventricle is normal size. The right ventricular systolic function is normal. Unable to asse ss PA pressure. Atria The left atrium size is normal. The right atrium size is normal. The interatrial septum is intact wit h no evidence for an atrial septal defect. Aortic Valve The Aortic valve is sclerotic. Aortic valve is trileaflet. There is no aortic valvular stenosis. Trac e aortic regurgitation. Mitral Valve The mitral valve is normal in structure. No evidence of mitral valve stenosis. Tricuspid Valve The tricuspid valve is normal in structure. There is no tricuspid valve stenosis. Trace tricuspid reg urgitation. Pulmonic Valve The pulmonary valve is normal in structure. There is no pulmonic valvular stenosis. Mild pulmonic reg urgitation. Great Vessels The aortic root is normal in size. The ascending aorta is mildly dilated. IVC is normal in size and c ollapses >50% with inspiration. Pericardium There is no pericardial effusion. 2D Dimensions IVSD d PLAX 0.98 cm M: 0.6-1.2 Ao Root d 3.17 cm M: 3.1 - 3.7 LVPW d PLAX 0.92 cm M: 0.6 - 1.2 Ao Asc Diam d 3.93 cm M: 2.6 - 3.4 LVID d PLAX 4.47 cm M: 4.2 - 5.8 LVDs 3.31 cm M: 2.5 - 4.0 LV EF Teichholz 51.3 % FS 26.02 % LV EDV (Teich) 91.2 mL LV ESV (Teich) 44.5 mL Stroke Vol Index (Teich) 24.48 M-Mode TAPSE 2.13 cm (M/F) >1.7 Auto EF LV EDV A4C 101.1 mL LV EDV A2C 87.3 mL LV EDV BP 95.4 mL LV ESV A4C 46.4 mL LV ESV A2C 39.0 mL LV ESV BP 43.2 mL LVEF(%) A4C 54.1 % LVEF(%) A2C 55.4 % LVEF(%) BP 54.8 % LV SV A4C 54.7 ml LV SV A2C 48.3 ml LV SV BP 52.3 ml LV CO A4C 4.0 L/min LV CO A2C 3.5 L/min LV CO BP 3.7 L/min HR A4C 72.44 BPM HR A2C 72.15 BPM LV EDV Index (BP) LA Volume LA Length A4C 4.8 cm LA Length A2C 5.1 cm LA Area A4C s 10.14 cm2 LA Area A2C s 10.03 cm2 LA Vol A4C A-L 18.11 mL LA Vol A2C A-L 16.80 mL LA Vol Biplane A-L 17.9 mL LA Vol/BSA A4C A-L LA Vol/BSA A2C A-L LA Vol/BSA BP A-L 9.4 mL/m2 LA Vol A4C MOD 17.3 mL LA Vol A2C MOD 16.7 mL LA Vol BP MOD 16.7 mL LV Diastology MV E' medial 0.052 (>0.07 m/s) MV E Vmax 0.59 (0.4-1.3 m/s) MV E/E' MED 11.51 (<14) MV A Vmax 0.80 (0.4-1.3 m/s) MV E' lateral 0.077 (>0.1 m/s) E/A Ratio 0.7 MV E/E' LAT 7.71 (<14) MV E' Average 0.064 m/s MV E/E'(average) 9.24 Aortic Valve AoV Vmax 1.27 m/s LVOT Vmax 1.04 m/s AoV Peak Grad 6.4 mmHg LVOT Peak Grad 4.3 mmHg AoV Area (Vmax) 3.18 cm2 LVOT VTI 0.206 m AoV VTI 0.224 m LVOT Mean Grad 2.1 mmHg AoV Mean James. 0.85 m/s LVOT SV 80.09 mL AoV Mean Grad 3.4 mmHg LVOT Diam s 2.20 cm AoV Area (VTI) 3.58 cm2 Velocity Ratio 0.82 Mitral Valve MV DT 368 (160-240 msec) Pulmonary Valve PV Vmax 1.22 (0.5-1.5 m/s) RVOT Vmax 0.70 m/s PV Peak Grad 5.9 mmHg RVOT Peak Gr. 2.0 mmHg PV Mean James 0.87 m/s RVOT VTI 0.111 m PV Mean Grad 3.3 mmHg RVOT Mean Gr. 1.0 mmHg
[2023-07-10 12:20] VITALS: BP 141/88; PULSE 69
[2023-07-10] MEDS: Metoprolol 25 MG TAB PO (12:20)
--- NOTE | 2023-07-10 14:09 | PT.INIE ---
PT Notes Visit Reasons: Dizziness Physical Therapy Inpatient Initial Evaluation Date: 07/10/2023 Referring Doctor: Teresa Ricci NP PT Orders: PT CONSULT: Eval/Treat Precautions: Fall. Standard. Activity as tolerated. Patient Profile/Admitting Diagnosis: Emmanuel is an 83-year-old male who presented to the ED on 07/09/2023 with complaints of dizziness that started in the morning of the day prior. Patient is admitted to [facility] for continued monitoring of dizziness of symptoms and for suspected CVA. As of 08/10/2023 MILAD Moore ruled out CVA with negative head CT, brain MRI, and brain MRI with MRA. MILAD Moore sent in referral for evalaution of BPPV. 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 Allergic rhinitis (Acute) Essential hypertension (Acute 07/17/13) Gastroesophageal reflux (Acute) Hyperlipidemia (Acute) Joint pain (Acute) DJD Kidney stone on left side (Acute 12/18/14) 12/18/14 [facility] stented and removed 07/29/18 WITH HYDRONEPHROSIS Lumbago (Acute) L5 compression fx; Low back pain (Acute) L5 compression fx; Neoplasm of unspecified nature of bone, soft tissue, 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 Independent with all aspects of ADLs prior to surgery. Still drives. Equipment Owned/DME: None Subjective: Stated that he spent Sunday night watching TV longer than he usually did, about 2-3 hours. TV is attached to the wall up higher so his neck was strained for that long the previous night. Sunday he felt the bathroom spinning and made him gently fall from standing up from toilet seat onto tub, impact of fall buffered by the tub curtains. He denied hitting his head. Discomfort over L and R levator scap and upper trapezius reported at end of ranges and with palpation. Per Nurse Paz, patient was given Meclizine 6 minutes before PT came for evalaution. Onset: ?07/08/2023Sunday when he tried standing up from toilet seat Quality: Room-spinning dizziness Duration: ?On and off since Sunday; subsided Previous Episodes: Last Sunday was the first episode Exacerbating Factors: Positional change, worse with supine<>sit; asymptomatic with head rotation/flexion/extension/lateral bending Headache: None Neck ache: Yes Nausea/Vomitting: None Hearing Loss: None Tinnitus: None Fullness in Ear: None (although it was documented that patient has ceruminosis Imbalance: Mild with turning Red Flags: ? Visual changes: reports chronic blurriness of vision which the eye doctor knows about; most recent eye appt was about 1 mo ago per pt ? Dysphagia or Dysarthria: None ? Facial Weakness: None ? Incoordination: None Prior Level of Function: Independent with all ADLs Current Level of Function: Mildly cautious with movement but managed to walk 300 feet with PROJECT MANAGEMENT DIRECTOR after session (see PROJECT MANAGEMENT DIRECTOR notes) Previous Treatment: None OBJECTIVE: Posture: Good upright posturing Observation: guarded movements, with limited head motions during gait, transfers and bed mobility Mental Status: A and O x 4 Vital Signs: Closely monitored by nursing staff ROM: Cervical ROM: R head rotation about 45 degrees, L less than 30 degrees. R lateral flexion less than 10 degrees, L lateral rotation more than 10 degrees. Strength: Cervical muscle strength: 3-/5 Bed Mobility/Transfers: Rolling modified independent Supine to sit modified independent Sit to supine modified independent Sit to stand modified independent Stand to sit modified independent Gait: Observed patient walked inside room without assistive device. PROJECT MANAGEMENT DIRECTOR Shawn, who was present in room observing the Olya maneuver (with patient's permission) was asked to walk patient around the hallway after patient verbalized that his symptoms considerably diminished. Per PROJECT MANAGEMENT DIRECTOR, patient covered 300 feet without assistive device with stride length shortened and arm swing significantly decreased. No dizziness, no sensation of spinning reported per PROJECT MANAGEMENT DIRECTOR. Pleas see PROJECT MANAGEMENT DIRECTOR notes. Special Tests: ? Rhomberg: Minimal posterior sway but no LOB ? Coordination: Intact ? Fine Motor: Intact ? Visual Tracking: Decrease in smooth pursuit with return to midline from left gaze ? Head Thrust: Negative ? Nissa-Halpike: Left upbeating/torsional nystagmus of <2 minuteswith R [place] hallpike with increased spinning sensation reported but no vomitting ? Supine Roll Test: Negative Balance: Static Sitting: Good Dynamic Sitting: Good Static Standing: Good Dynamic Standing: Fair Special Tests: Mobility Limitations Standardized Measure [facility] 6 clicks Basic Mobility Inpatient Short Form: Raw Score: 23 CMS Score: 11% deficit Informed Consent/Education: Patient was instructed in purpose of PT consult and plan of care. Agreeable to proceed with performance of R Olya maneuver for this session. Patient was provided with copy of R Olya procedure after maneuver was done with him. MANUAL THERAPY: -Gentle STM to B lev scapulae and upper traps with good response NEURO RE-ED: -Gaze stabilization exercises with good response -R Olya maneuver performance and patient education/training with partial resolution of symptoms. Copy provided as well. THERA ACT: SARAHI Ecsobar was asked to complet ambulation activity after patient was observed safe to be walked. ASSESSMENT: Left upbeating/torsional nystagmus and increased symptom of spinning <2 minutes with R Nissa-Hallpike maneuver signifying anterior canal BPPV and will benefit from outpatient PT vestibular rehab. Her cervical muscle strain from prolonged TV watching and pre-existing ceruminosis may have contributed to her ongoing symptoms. Patient may benefit from PCP referral to address ceruminosis and OP PT for management of mild cervicalgia. Patient presents with clinical signs and symptoms consistent with current/admitting diagnoses that have resulted to mobility limitations, gait instability, generalized weakness, and overall ADL decline as demonstrated by the following impairment level findings: 1. Impaired sitting/standing balance 2. Impaired activity tolerance 3. Limitation of joint range of motion in cervical ROM 4. Sensation of spinning with positional change Impairments are contributing to the following functional limitations: 1. Increased completion time for mobility ADL performance 2. Increased risk for falls Patient is assessed as a 35430 low complexity based on the following: History: 83-year-old male with past medical history as indicated above Examination: Demonstrable impairment above Presentation: Evolving Decision Makin low complexity Goals: N/A. PT evalaution and patient education/training only. PROJECT MANAGEMENT DIRECTOR asked to continue walking patient to determine change in symptoms. Plan of Care/Treatment Plan: N/A. PT evalaution and patient education/training only. PROJECT MANAGEMENT DIRECTOR asked to continue walking patient to determine change in symptoms. DISCHARGE RECOMMENDATIONS: [] Home with no services [] [] Home with services [specify] [X] Home with outpatient PT for re-evaluation and continued vestibular rehab for anterior canal BPPV. [] SNF for continued rehabilitation [] [] Home Health Rn Care [] [] SNF versus LTC based on ability to participate and progress [] TREATMENT CODE/TIME: 73564 x 20 minutes for 1 unit, 42035 x 16 minutes for 1 unit beginning at 14:09 PM. Thank you for the opportunity to participate in the care of this patient. Melisa Sousa PT, DPT, CLT [facility] [place], [place]
--- NOTE | 2023-07-10 14:53 | W.PM.DS.N ---
Date of service: 07/10/23 Time of Service: 14:53 DS: Diagnosis Discharge Diagnosis (1) BPPV (benign paroxysmal positional vertigo): Status: Acute Asessment and Plan: Will follow-up outpatient with physical therapy (2) CVA (cerebral vascular accident): Status: Ruled-out Discharge Plan Disposition Patient Disposition: Home Condition: Improving Discharge Details Reason For Visit: Dizziness Admit Date/Time: 07/09/23 12:55 Admit Provider: Fili Hernández Attending Provider: Fili Hernández Primary Care Provider: Alfredo Burnett Hospital Course Hospital Course: This is an 83-year-old male patient presents to the emergency department for evaluation of dizziness that have been going on for 1 day. Associated with position change. Patient was evaluated in the emergency department had a negative head CT ongoing symptoms hospitalist service was requested to admit for stroke rule out. MRI was obtained and no evidence of acute CVA. Physical therapy consulted and patient's symptoms are consistent with benign positional paroxysmal vertigo. Olya maneuver was performed with improvement in symptoms. Patient will be discharged home on meclizine to use as needed outpatient referral to physical therapy for ongoing outpatient treatment patient is stable and ready for discharge to home discharge with no services discharge discussed with Dr. Hernández Home Meds and New Rx's Prescriptions: New meclizine 12.5 mg Tablet 12.5 mg PO TID PRN (Reason: Dizziness) Qty: 20 0RF Continued tramadol 50 mg tablet 50 mg PO Q6H PRN (Reason: pain) Qty: 50 0RF Rx Instructions: may take along with tylenol or NSAIDs hydrochlorothiazide 12.5 mg tablet 12.5 mg PO DAILY Qty: 90 4RF Rx Instructions: 1 TAB DAILY metoprolol tartrate 25 mg tablet 25 mg PO BID Qty: 180 4RF Rx Instructions: 1 TAB BID omeprazole 20 mg capsule,delayed release(DR/EC) 20 mg PO QAM Qty: 90 4RF Rx Instructions: 1 TAB QAM flu vac qs 2020-(6 ms up) CD 60 mcg (15 mcg x 4)/0.5 mL suspension 0.5 ml IM ONCE Qty: 0.5 0RF aspirin [Ecotrin Low Strength] 81 MG tablet,delayed release (DR/EC) 81 mg PO DAILY Hold Instructions: Resume on 07/24/22. Resume if no bleeding x 1 week saw palmetto 450 MG capsule 450 mg PO BID CENTRUM SILVER ULTRA MEN'S TAB 1 EACH tablet 1 ea PO DAILY fluticasone propionate [Flonase] 16 GM spray,suspension 1 - 2 spry NS DAILY PRN Qty: 3 loratadine 10 mg tablet 10 mg PO DAILY Qty: 90 4RF Rx Instructions: 1 TAB DAILY simvastatin 20 mg tablet 20 mg PO HS Qty: 90 4RF Rx Instructions: 1 TAB hs potassium chloride 10 mEq tablet extended release 10 meq PO BID Qty: 180 4RF Rx Instructions: Klor Con brand medically necessary (it is the only kind he can swallow) Discharge Instructions Instructions: Benign Paroxysmal Positional Vertigo (DC) Stand Alone Forms: Nursing Discharge Form Referrals: [facility] [Provider Group] Alfredo Burnett MD [Primary Care Provider] - 07/18/23 1:20 pm Activity:: Activity as Tolerated Equipment/Supplies:: No Equipment Needed Diet:: As Tolerated Discharge Orders Discharge Orders: Discharge Order (Routine); Ordered 07/10/23 Ordered By: Teresa Ricci Discharge Data Discharge Date/Time-TO BE ENTERED AT DEPARTURE: 07/10/23 15:55 DS: Summary Time Spent with Patient providing and/or coordinating discharge services: Less than 30 minutes Status at Discharge Functional status at discharge: independent ambulation Overall status at discharge: patient is progressing back to baseline Mental Status: mental status grossly normal Speech and Movement: speech and movement normal Mood: congruent mood Affect: normal affect Quality:SDOH Health Related Social Needs: No Data to Display Exam Narrative Exam Narrative: Pleasant elderly male lying in bed. He is conversant and non-toxic appearing. Const General: cooperative and no acute distress Nutritional Appearance: obese Orientation: alert and oriented x3 Eyes Alignment and Position: alignment normal Eyelids: eyelid abnormality left upper eyelid (ptosis) Sclera: sclerae normal EOM: nystagmus Resp Effort & Inspection: normal respiratory effort Auscultation: clear to auscultation bilaterally Cardio Rate: regular rate Rhythm: regular rhythm Heart Sounds: S1 normal and S2 normal GI Inspection: non-distended Palpation: soft and nontender Skin General skin exam: no rashes or lesions noted and other (Large number of seborrheic karatoses on face and torso) Neuro Cranial Nerves: nystagmus Extrem General: no pedal edema and no calf tenderness Psych Appearance: grossly normal Mental Status: mental status grossly normal Speech and Movement: speech and movement normal Mood: congruent mood Affect: normal affect DS: Data Vitals/I&O Vitals and I&O: Vital Signs Temperature 35.9 C L 07/10/23 10:48 Temperature Source Tympanic 07/10/23 10:48 Pulse 69 07/10/23 12:20 Pulse Rhythm Regular 07/10/23 07:05 Pulse 56 L 07/09/23 14:17 Respiratory Rate 16 07/10/23 10:48 Respiratory Effort Normal, Non-Labored 07/10/23 07:05 Respiratory Depth Normal 07/10/23 07:05 Respiratory Pattern Normal 07/10/23 07:05 Blood Pressure 141/88 H 07/10/23 12:20 Blood Pressure Mean 93 07/09/23 14:17 Blood Pressure Position Sitting 07/09/23 09:04 Pulse Oximetry 97 07/10/23 10:48 Oxygen Delivery Method Room Air 07/10/23 10:48 Oxygen Flow Rate 0 07/10/23 10:48 Pain Level 0 07/10/23 10:48 Comment Pt. denies pain at this time. 07/10/23 10:48 Intake & Output 07/09/23 07/10/23 07/10/23 23:59 11:59 23:59 Intake Total 490 / 1280 790 / 1280 Output Total 400 / 500 250 / 250 Balance -400 / 10 240 / 1030 790 / 1030 Weight 96.162 kg Intake: IV Oral 480 / 1270 790 / 1270 Output: Urine 400 / 500 250 / 250 Other: Urine Color Light Raeann Yellow Urine Appearance Clear Clear Comment pt reports nocturnal frequency at baseline Void x1 in the toilet. Void x1 in the toilet. 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 Allergic rhinitis (Acute) Essential hypertension (Acute 07/17/13) Gastroesophageal reflux (Acute) Hyperlipidemia (Acute) Joint pain (Acute) DJD Kidney stone on left side (Acute 12/18/14) 12/18/14 [facility] stented and removed 07/29/18 WITH HYDRONEPHROSIS Lumbago (Acute) L 5 compression fx; Low back pain (Acute) L 5 compression fx; Neoplasm of unspecified nature of bone, soft tissue, 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) Obstructive sleep apnea syndrome (Acute) severe; CPAP (inital studies 2007 [facility] and [facility]) Skin lesion of cheek (Acute 08/06/15) Medical History HTN (hypertension) Kidney stones Surgical History History of colonoscopy (~08/2022) Open Carpal Tunnel release (08/14/14) LEFT/DR LUIS HERNIA REPAIR X 2 Extraction of cataract B/L Family History Mother Diabetes Essential hypertension Heart disease Father Essential hypertension Personal history of malignant neoplasm COLON/SKIN Heart disease Hyperlipidemia Asthma Maternal Grandmother Essential hypertension Heart disease Stroke Esophageal cancer Sister Essential hypertension Hyperlipidemia Social History Smoking/Tobacco Use Status: Former Tobacco Use tobacco type: pipe and cigars Quit Date: 07/09/59 Tobacco: How many years used: 2 Second Hand Exposure: No Smoking risk assessment performed?: Yes Alcohol Intake: former Drug use: Never Substance use type: does not use Caregiver/Support person: No Household members: none Housing: house Communication Needs: None Pets and animals: No Sexually active: No Do you think of yourself as: straight/heterosexual Current gender identity: male What is your relationship status?: How often do you talk on the phone with friends or family?: three or more times per week How often do you get together with friends or relatives?: three or more times per week How often do you attend anabaptist or episcopalian services?: 4 or more times per year Do you belong to any clubs or organized social groups?: no Panel score (0-1 are the most socially isolated patients): 2 What type of physical activity do you participate in: walking Duration: < 15 minutes/day Frequency: 1-2 times per week Barby/Caodaism: None Special barby needs: No Seatbelt use: always Helmet use: No Drive intox or ride w/intox ambulance driver: No Do you feel safe at home: Yes Do you feel safe in your relationship?: Yes Time Spent with Patient Time Spent with Patient: <45 minutes Time was spent: preparing to see the patient(eg.review tests), obtaining and/or reviewing separately otained hiistory, ordering medications,tests, procedures, referring, communicating with other health customer care assistant, indepentently interpreting results and counseling the patient
[2023-07-10 15:12] VITALS: BP 152/90; PULSE 57; RESP 18; TEMP 36.2; O2SAT 98
[2023-07-10 15:27] VITALS: PULSE 59
--- NOTE | 2023-07-10 15:32 | PDOC.CMDIS ---
Date of service: 07/10/23 Time of Service: 15:32 LACE Index Scoring Tool Questions: Length of Stay (in days): 1 Was the patient admitted via the E.D.?: Yes E.D. Visits: 1 Answers: Total Score: 5 Risk of Readmission: Low Risk Care Management Discharge Plan Reason for Hospitalization: Dizziness Discharge Plan: Emmanuel will be discharged home with no new services. He will follow up with community providers and plan of care and transport with a friend. Patient/Family Education Needs: Review of discharge instructions, activity, limitations, diet, follow up plan, discuss Ask Me Three [facility] Health Related Social Needs: No Data to Display
--- NOTE | 2023-07-10 15:55 | PT.INTREAT ---
PT Notes Visit Reasons: Dizziness Date: 07/10/2023 Referring Doctor: Teresa Ricci NP PT Orders: PT CONSULT: Eval/Treat Precautions: Fall. Standard. Activity as tolerated. SUBJECTIVE: pt reports feeling much better after Olya's maneuver, pt agrees to going for gait training OBJECTIVE: ? PAIN: non BED MOBILITY/TRANSFERS? Supine-sit: modified independence ? Sit-supine: modified independence? Sit-stand: supervision? Stand-sit: supervision ? GAIT? Assistive Device: non? Weight bearing: full Assist: SBA? Distance:? 300' ? Deviation: decreased armswing, low step height and step length, wide base of stance ? ASSESSMENT:? Pt able to complete the entire big loop without reproduction of symptoms, pt requested to use the toilet when pt got back in his room and was independent with all transfer activity going in and out of toilet. PLAN: pt is DC for home and will continue with vestibular rehab/out-PT TREATMENT CODE/TIME: 55496p7 15mins (2:46-3:01pm)
== END 2023-07-10 15:55 | disposition home or self-care (01) ==
LOC: ER 13:08 → MS 14:35
PROVIDERS: Admitting Provider Family Medicine; Emergency Provider Registered Nurse Emergency; PCP Family Medicine; Visit Provider Family Medicine
DX: H81.11 Benign paroxysmal vertigo, right ear (principal); G89.4 Chronic pain syndrome; I25.10 Atherosclerotic heart disease of native coronary artery without angina pectoris; J30.9 Allergic rhinitis, unspecified; I10 Essential (primary) hypertension; E78.5 Hyperlipidemia, unspecified; K21.9 Gastro-esophageal reflux disease without esophagitis; M54.50 Low back pain, unspecified; G47.33 Obstructive sleep apnea (adult) (pediatric); Z87.442 Personal history of urinary calculi; I25.2 Old myocardial infarction; Z79.82 Long term (current) use of aspirin; Z79.899 Other long term (current) drug therapy; R27.0 Ataxia, unspecified
CPT/HCPCS: 00123; 36415; 70544; 70547; 80053; 93005; 96360; 97112; 97161; 97530; 99285; 70450; 70551; 71046; 81003; 81015; 83735; 83880; 84484; 85025; 85610; 85730; 93010; 93306; 99223; 99238; G0378

== ENCOUNTER → 2023-08-08 14:16 | Outpatient (BNVA) | payer MEDICARE, OTHER, SELFPAY | PROVIDERS: PCP Family Medicine; Visit Provider Nurse Practitioner Gerontology | DX: N21.0 Calculus in bladder (principal); N20.0 Calculus of kidney | CPT/HCPCS: 99213 ==

== ENCOUNTER 2023-09-17 16:20 | Inpatient (IN) | payer MEDICARE, OTHER, SELFPAY ==
[2023-09-17] VITALS (13 sets, daily range): BP systolic 123–145; BP diastolic 69–85; PULSE 85–112; RESP 12–26; TEMP 36.4–36.6; O2SAT 94–98
[2023-09-17 16:39] LABS: Bilirubin Negative (Negative); Blood Large (Negative); Clarity Turbid (Clear); Glucose Negative (Negative); Ketones 15 mg/dL (Negative); Leukocyte Esterase Trace (Negative); Nitrite Negative (Negative); Specific Gravity >= 1.030 (1.005-1.025); Urobilinogen 0.2 mg/dL (Up to 0.2); pH 5.5 (5-8)
[2023-09-17 16:44] LABS: Bacteria Few HPF (Negative); C & S Indicated? Yes; Casts 5-10 Hyaline LPF (Negative); Crystals Few Amorphous HPF (Negative); Epithelial Cells Few HPF (Negative); Mucus Trace (Negative); Other Cells Few Renal (Negative); RBC 20-50 HPF (0-2)
--- NOTE | 2023-09-17 17:36 | W.ED.GENAD ---
Discharge Plan Disposition Patient Disposition: Admit to [facility] Condition: Stable Discharge Details Chief Complaint: Abd Prob Clinical Impression: Acute kidney injury, Pancreatitis Primary Care Provider: Alfredo Burnett ED Provider: Benji Johnson Home Meds and New Rx's Prescriptions: No Action metoprolol tartrate 25 mg tablet 25 mg PO BID Qty: 180 4RF Rx Instructions: 1 TAB BID omeprazole 20 mg capsule,delayed release(DR/EC) 20 mg PO QAM Qty: 90 4RF Rx Instructions: 1 TAB QAM simvastatin 20 mg tablet 20 mg PO HS Qty: 90 4RF Rx Instructions: 1 TAB hs hydrochlorothiazide 12.5 mg tablet 12.5 mg PO DAILY Qty: 90 4RF Rx Instructions: 1 TAB DAILY tramadol 50 mg tablet 50 mg PO Q6H PRN (Reason: pain) Qty: 50 0RF Rx Instructions: may take along with tylenol or NSAIDs flu vac qs 2020-(6 ms up) CD 60 mcg (15 mcg x 4)/0.5 mL suspension 0.5 ml IM ONCE Qty: 0.5 0RF aspirin [Ecotrin Low Strength] 81 MG tablet,delayed release (DR/EC) 81 mg PO DAILY Hold Instructions: Resume on 07/24/22. Resume if no bleeding x 1 week saw palmetto 450 MG capsule 450 mg PO BID CENTRUM SILVER ULTRA MEN'S TAB 1 EACH tablet 1 ea PO DAILY fluticasone propionate [Flonase] 16 GM spray,suspension 1 - 2 spry NS DAILY PRN Qty: 3 loratadine 10 mg tablet 10 mg PO DAILY Qty: 90 4RF Rx Instructions: 1 TAB DAILY potassium chloride 10 mEq tablet extended release 10 meq PO BID Qty: 180 4RF Rx Instructions: Klor Con brand medically necessary (it is the only kind he can swallow) meclizine 12.5 mg Tablet 12.5 mg PO TID PRN (Reason: Dizziness) Qty: 20 0RF HPI General Date/Time Provider Initiated Documentation: 09/17/23 16:31. HPI Narrative: 83 year-old male presents to ED today by POV/ambulating with a chief complaint of nausea/vomiting, abdominal pain with onset for the past week. Quality described as generalized upper abdominal pain and cramping, vomiting green bile, no radiation to fever, chest pain, shortness of breath, coughing, hematemesis, black/bloody stools. Severity is described as 7-8/10. Palliating factors include nothing specific attempted. Provoking factors include nothing specific. Patient not anticoagulated. Related Data Home Medications Medication Instructions Recorded Confirmed aspirin 81 mg tablet,delayed 81 mg PO DAILY 11/16/12 07/09/23 release (Ecotrin Low Strength) saw palmetto 450 mg capsule 450 mg PO BID 11/16/12 07/09/23 Centrum Silver Ultra Men's Tab 1 ea PO DAILY 01/12/14 07/09/23 fluticasone propionate 50 1 - 2 spry NS DAILY PRN ##3 07/28/14 07/09/23 mcg/actuation nasal spray,suspension (Flonase) loratadine 10 mg tablet 10 mg PO DAILY #90 tab-caps 09/01/21 07/09/23 potassium chloride 10 mEq 10 meq PO BID #180 tab-caps 11/01/22 07/09/23 tablet,extended release meclizine 12.5 mg tablet 12.5 mg PO TID PRN Dizziness #07/10/23 tabs hydrochlorothiazide 12.5 mg tablet 12.5 mg PO DAILY #90 tab-caps 07/18/23 07/18/23 metoprolol tartrate 25 mg tablet 25 mg PO BID #180 tab-caps 07/18/23 07/18/23 omeprazole 20 mg capsule,delayed 20 mg PO QAM #90 tab-caps 07/18/23 07/18/23 release simvastatin 20 mg tablet 20 mg PO HS #90 tab-caps 07/18/23 07/18/23 tramadol 50 mg tablet 50 mg PO Q6H PRN pain #50 tabs 07/18/23 07/18/23 Previous Rx's Medication Instructions Recorded loratadine 10 mg tablet 10 mg PO DAILY #90 tab-caps 09/01/21 potassium chloride 10 mEq 10 meq PO BID #180 tab-caps 11/01/22 tablet,extended release meclizine 12.5 mg tablet 12.5 mg PO TID PRN Dizziness #20 07/10/23 tabs hydrochlorothiazide 12.5 mg tablet 12.5 mg PO DAILY #90 tab-caps 07/18/23 metoprolol tartrate 25 mg tablet 25 mg PO BID #180 tab-caps 07/18/23 omeprazole 20 mg capsule,delayed 20 mg PO QAM #90 tab-caps 07/18/23 release simvastatin 20 mg tablet 20 mg PO HS #90 tab-caps 07/18/23 tramadol 50 mg tablet 50 mg PO Q6H PRN pain #50 tabs 07/18/23 Allergies Allergy/AdvReac Type Severity Reaction Status Date / Time birch Allergy Unknown Verified 08/08/23 14:28 chocolate flavor AdvReac Diarrhea Verified 08/08/23 14:28 clindamycin AdvReac DIARRHEA Verified 08/08/23 14:28 DUST Allergy Unknown Uncoded 08/08/23 14:28 MOLDS AND SMUT Allergy Unknown Uncoded 08/08/23 14:28 PINE TREE Allergy Unknown Uncoded 08/08/23 14:28 RAGWEED Allergy Unknown Uncoded 08/08/23 14:28 General Stated Complaint: Abd Prob MALLIKA: 3 Review of Systems All systems reviewed & are unremarkable except as noted in HPI and below Exam Narrative Exam Narrative: GENERAL APPEARANCE: Well-nourished, non-toxic, awake and alert, atraumatic, no acute distress. SKIN: Warm, pink, dry, intact, without rashes/lesions/ulcerations. HEAD: Normocephalic, atraumatic, normal hair distribution for gender/age. EYES: Pupils PERRLA, EOMs intact without nystagmus, normal conjunctiva, no exudates on lids/lashes. ENT: Nares patent, no circumoral cyanosis, no facial swelling, dry oral mucosa NECK: Supple, trachea midline, painless cervical ROM. LUNGS/CHEST: Lungs CTA bilaterally- no rhonchi/rales/wheezes diffusely, non-labored respirations, normal A/P diameter, symmetrical expansion, no chest wall deformity HEART (CV/PV): Regular rate and rhythm without murmur, no peripheral edema, no JVD. ABDOMEN: Soft, non-distended, no guarding, RUQ & epigastric tenderness without Mar's sign, no Rovsing's. MSK: Normal ROM, no swelling/deformity to bilateral UEs or LEs, moving all extremities without weakness, no cyanosis, spine midline without tenderness, normal curvature. NEURO: Mental Status AAOx4 - alert to person, place, time, events No facial droop, no forehead involvement. Motor: No focal weakness - strength 5/5 in bilateral UEs and LEs, proximal and distal, symmetric. Sensory: sensation intact to light touch globally. Gait normal: patient ambulated without ataxia into ED room. PSYCH: euthymic, cooperative, pleasant, appropriate speech Course Vital Signs Vital signs: Vital Signs Temperature 36.6 C 09/17/23 16:28 Pulse 112 H 09/17/23 16:28 Respiratory Rate 18 09/17/23 16:28 Blood Pressure 123/79 09/17/23 16:28 Pulse Oximetry 97 09/17/23 16:28 Temperature 36.6 C 09/17/23 16:28 Temperature Source Temporal Artery Scan 09/17/23 16:28 Pulse 112 H 09/17/23 16:28 Respiratory Rate 18 09/17/23 16:28 Blood Pressure 123/79 09/17/23 16:28 Pulse Oximetry 97 09/17/23 16:28 Oxygen Delivery Method Room Air 09/17/23 16:28 Oxygen Flow Rate 0 09/17/23 16:28 Lab/Test Results Lab/Test Results: 09/17/23 16:30 Urine - Reflex from Ua Urine Culture - Pending Laboratory Tests Range/Units 09/17/23 16:30 Urine Color (Yellow) Dark Yellow Urine Clarity (Clear) Turbid Urine pH (5-8) 5.5 Ur Specific [place] (1.005-1.025) >= 1.030 H Urine Protein (Neg-Trace) mg/dL >=300 H Urine Ketones (Negative) mg/dL 15 H Urine Blood (Negative) Large H Urine Nitrite (Negative) Negative Urine Bilirubin (Negative) Negative Urine Urobilinogen (Up to 0.2) mg/dL 0.2 Ur Leukocyte Esterase (Negative) Trace H Urine RBC (0-2) HPF 20-50 H Urine WBC (0-5) HPF 10-20 H Ur Epithelial Cells (Negative) HPF Few Urine Crystals (Negative) HPF Few Amorphous Urine Bacteria (Negative) HPF Few Urine Casts (Negative) LPF 5-10 Hyaline Urine Mucus (Negative) Trace Urine Other (Negative) Few Renal Ur Culture Indicated? Yes Urine Glucose (Negative) mg/dL Negative Medical Decision Making This dictation utilizes [id number] dictation software and may contain unedited grammatical errors. 83 y/o M presents to ED today with a chief complaint of abdominal pain with bilious vomiting for about a week, poor p.o. intake, states he feels it may be his gallbladder. Patients' medical history: History of kidney stones, hernia repair, hypertension, CVA, diverticulitis, GI bleeding. Family and social history: noncontributory, no sick contacts. Pertinent exam findings / vital signs include RUQ & epigastric tenderness, no Mar's / Rovsings, benign cardiopulmonary exam, neuro intact. Differential / pathologies of concern include sepsis, GI bleeding, dehydration, biliary colic, renal colic, gastritis. Diagnostic studies of: -CBC, CMP, UA, troponin I, CRP/ESR, lactate, liver panel, magnesium, procalcitonin, BNP, lipase, CT abdomen pelvis without contrast. -CBC no leukocytosis, no anemia -CMP no major electrolyte disturbances, SCr 3.2 - RANULFO, admittable, likely due to poor PO intake and vomiting -Trop I negative, mild bump in BNP likely renal source -LFTs no major disturbance, no elevated bilirubin -Lipase mildly elevated, likely in the setting of dehydration/vomiting -Magnesium WNL -Lactate neg, procal negative -CT shows enteritis- no other emergent pathology, would get US RUQ tomorrow when service available Interventions of: -IV fluids and admission to hospitalist for acute kidney injury Dr. Clifford accepts at 2120. Findings not consistent with biliary colic or cholangitis or cholecystitis, patient has mild pancreatitis, as well as severe acute kidney injury, no evidence of SBO or perforated viscus or sepsis. Disposition of Acute Kidney Injury, Pancreatitis. Patient verbalized understanding of the plan and return to ED criteria and engaged in shared decision making. Medical Records Medical records reviewed: Yes I reviewed the patient's medical records. Imaging Data Radiologic Study: Attestation: I personally reviewed and interpreted this imaging study as follows: Imaging: CT Scan Radiologist's impression: Exam: CT Abdomen And Pelvis Without Contrast Exam date and time: 09/17/2023 7:39 PM Age: 83 years old Clinical indication: Other: Epigastric/ruq pain, bilious vomiting; Additional info: No iv contrast due to poor kidney function. TECHNIQUE: Imaging protocol: Computed tomography of the abdomen and pelvis without contrast. COMPARISON: CT ABDOMEN PELVIS W 07/16/2022 6:41 AM FINDINGS: Lungs: Stable small areas of atelectasis in the right lower lung. Liver: Normal. No mass. Gallbladder and bile ducts: Normal. No calcified stones. No ductal dilation. Pancreas: Normal. No ductal dilation. Spleen: Normal. No splenomegaly. Adrenal glands: Normal. No mass. Kidneys and ureters: Single small calyceal stone. Right kidney appears normal. No hydronephrosis. 16 mm hypodense lesion in the lower left kidney compatible with cortical cyst. Stomach and bowel: Moderate-sized sliding-type hiatal hernia containing the gastric fundus. Moderate diverticulosis of the sigmoid colon. Apparent diffuse wall thickening of multiple small bowel loops throughout the abdomen compatible with enteritis. No evidence of bowel obstruction. Appendix: The appendix is visualized and appears normal. Intraperitoneal space: Unremarkable. No free air. No significant fluid collection. Vasculature: Moderate atherosclerotic calcification of the aorta and iliac arteries. No evidence of aneurysm. Lymph nodes: Unremarkable. No enlarged lymph nodes. Urinary bladder: Several bladder stones of varying sizes noted in the bladder lumen, the largest measuring approximately 2.4 cm in diameter. Reproductive: Prostate gland is enlarged, measuring 6 cm in diameter. Bones/joints: Stable chronic compression of L5. Moderate multilevel degenerative disc changes and facet arthropathy. No acute fracture. Moderate degenerative changes in the bilateral hip joints. Soft tissues: Partially visualized left inguinal hernia containing a portion of the proximal sigmoid colon. Small fat containing umbilical hernia. IMPRESSION: Moderate findings of diffuse enteritis throughout the proximal small bowel. Other stable chronic findings as noted. Dictated and Authenticated by: Alan Clemens MD. Ordering:BO Leblanc MD Lab Data Lab results reviewed: Yes I reviewed the patient's lab results. Labs: 09/17/23 16:30 Urine - Reflex from Ua Urine Culture - Pending Laboratory Tests Range/Units 09/17/23 09/17/23 16:30 18:40 WBC (4.4-10.8) 10^3/uL 10.06 RBC (4.36-5.78) 10^6/uL 5.78 Hgb (13.5-17.5) g/dL 16.0 Hct (40.0-50.0) % 47.0 MCV (80-95) fL 81 MCH (27.0-33.0) pg 27.7 MCHC (32.0-36.0) % 34.0 RDW (11.8-14.1) % 12.9 Plt Count (130-400) 10^3/uL 298 MPV (8.0-11.0) fL 12.5 H Immature Gran % 0.8 Neutrophils % 63.9 Lymphocytes % 21.5 Monocytes % 12.6 Eosinophils % 0.5 Basophils % 0.7 Nucleated RBC % (0.0-0.3) % 0.0 Absolute Neutrophils (1.2-6.7) 10^3/uL 6.43 Absolute Lymphocytes (1.2-3.4) 10^3/uL 2.16 Absolute Monocytes (0.1-0.8) 10^3/uL 1.27 H Absolute Eosinophils (0.0-0.7) 10^3/uL 0.05 Absolute Basophils (0.0-0.2) 10^3/uL 0.07 ESR (0-20) mm/hr 37 H VBG Lactate (0.6-1.4) mmol/L 1.7 H Sodium (136-145) mmol/L 137 Potassium (3.5-5.1) mmol/L 3.3 L Chloride (98-107) mmol/L 96 L Carbon Dioxide (21.0-32.0) mmol/L 23.1 Anion Gap (3-11) mmol/L 17.9 H BUN (7-18) mg/dL 78 H Creatinine (0.70-1.30) mg/dL 3.2 H Est GFR (CKD-EPI 2020) (mL/min/1.73m2) 18.27 Glucose (74-106) mg/dL 114 H Calcium (8.5-10.1) mg/dL 9.7 Magnesium (1.8-2.4) mg/dL 2.0 Total Bilirubin (0.2-1.0) mg/dL 0.8 Conjugated Bilirubin (0.0-0.2) mg/dL 0.3 H AST (15-37) U/L 49 H ALT (16-63) U/L 46 Alkaline Phosphatase (46-116) U/L 84 Troponin I (< or =60) ng/L < 50 C-Reactive Protein (<or=0.5) mg/dL 3.83 H NT-Pro-B Natriuret Pep (<300) pg/mL 515 H Total Protein (6.4-8.2) g/dL 9.0 H Albumin (3.4-5.0) g/dL 4.0 Lipase (16-77) U/L 96 H Procalcitonin ng/mL 0.4 Urine Color (Yellow) Dark Yellow Urine Clarity (Clear) Turbid Urine pH (5-8) 5.5 Ur Specific [place] (1.005-1.025) >= 1.030 H Urine Protein (Neg-Trace) mg/dL >=300 H Urine Ketones (Negative) mg/dL 15 H Urine Blood (Negative) Large H Urine Nitrite (Negative) Negative Urine Bilirubin (Negative) Negative Urine Urobilinogen (Up to 0.2) mg/dL 0.2 Ur Leukocyte Esterase (Negative) Trace H Urine RBC (0-2) HPF 20-50 H Urine WBC (0-5) HPF 10-20 H Ur Epithelial Cells (Negative) HPF Few Urine Crystals (Negative) HPF Few Amorphous Urine Bacteria (Negative) HPF Few Urine Casts (Negative) LPF 5-10 Hyaline Urine Mucus (Negative) Trace Urine Other (Negative) Few Renal Ur Culture Indicated? Yes Urine Glucose (Negative) mg/dL Negative Quality:SDOH Health Related Social Needs: No Data to Display PFSH All Active Problems (Updated 09/17/23 @ 21:33 by BRADEN Gamble) Pancreatitis (Chronic) Acute kidney injury (Acute) Vomiting (Acute) RANULFO (acute kidney injury) (Acute) BPPV (benign paroxysmal positional vertigo) (Acute) Dizziness (Acute) Hyperplastic colon polyp (Acute) Tubular adenoma of colon (Acute) Diverticulitis (Chronic) Acute GI bleeding (Acute) Ceruminosis (Acute) Dental caries (Acute) Chronic pain syndrome (Chronic) Bladder stone (Acute) Calcium nephrolithiasis (Acute) w/ hydronephrosis and BRIELLE (creat 1.8) Diverticulosis (Acute ~07/2018) Left inguinal hernia (Acute ~07/2018) 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 Allergic rhinitis (Acute) Essential hypertension (Acute 07/17/13) Gastroesophageal reflux (Acute) Hyperlipidemia (Acute) Joint pain (Acute) DJD Kidney stone on left side (Acute 12/18/14) 12/18/14 [facility] [place] stented and removed 07/29/18 WITH HYDRONEPHROSIS Lumbago (Acute) L 5 compression fx; Low back pain (Acute) L 5 compression fx; Neoplasm of unspecified nature of bone, soft tissue, 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) Obstructive sleep apnea syndrome (Acute) severe; CPAP (inital studies 2007 [employer] and [facility] [place]) Skin lesion of cheek (Acute 08/06/15) Medical History HTN (hypertension) Kidney stones Surgical History History of colonoscopy (~08/2022) Open Carpal Tunnel release (08/14/14) LEFT/DR LUIS HERNIA REPAIR X 2 Extraction of cataract B/L Family History Mother Diabetes Essential hypertension Heart disease Father Essential hypertension Personal history of malignant neoplasm COLON/SKIN Heart disease Hyperlipidemia Asthma Maternal Grandmother Essential hypertension Heart disease Stroke Esophageal cancer Sister Essential hypertension Hyperlipidemia Social History Smoking/Tobacco Use Status: Former Tobacco Use tobacco type: pipe and cigars Quit Date: 07/09/59 Tobacco: How many years used: 2 Second Hand Exposure: No Smoking risk assessment performed?: Yes Alcohol Intake: former Drug use: Never Substance use type: does not use Caregiver/Support person: No Household members: none Housing: house Communication Needs: None Pets and animals: No Sexually active: No Do you think of yourself as: straight/heterosexual Current gender identity: male What is your relationship status?: How often do you talk on the phone with friends or family?: three or more times per week How often do you get together with friends or relatives?: three or more times per week How often do you attend tenriism or sabianist services?: 4 or more times per year Do you belong to any clubs or organized social groups?: no Panel score (0-1 are the most socially isolated patients): 2 What type of physical activity do you participate in: walking Duration: < 15 minutes/day Frequency: 1-2 times per week Barby/Confucianist: None Special barby needs: No Seatbelt use: always Helmet use: No Drive intox or ride w/intox fork truck driver: No Do you feel safe at home: Yes Do you feel safe in your relationship?: Yes
[2023-09-17 18:51] LABS: Lactate 1.7 mmol/L (0.6-1.4); Lymphocytes % 21.5; MCH 27.7 pg (27.0-33.0); MCV 81 fL (80-95); MPV 12.5 fL (8.0-11.0); Neutrophils % 63.9; Platelet Count 298 10^3/uL (130-400); RBC 5.78 10^6/uL (4.36-5.78); RDW 12.9 % (11.8-14.1); WBC 10.06 10^3/uL (4.4-10.8)
[2023-09-17 18:52] LABS: Abs Immature Grans 0.08 10^3/uL (0.0-0.06); Absolute Basophil Count 0.07 10^3/uL (0.0-0.2); Absolute Eosinophil Count 0.05 10^3/uL (0.0-0.7); Absolute Lymphocyte Count 2.16 10^3/uL (1.2-3.4); Absolute Monocyte Count 1.27 10^3/uL (0.1-0.8); Absolute Neutrophil Count 6.43 10^3/uL (1.2-6.7); Basophils % 0.7; Eosinophils % 0.5; Immature Grans % 0.8; Monocytes % 12.6
[2023-09-17 18:56] LABS: ESR 37 mm/hr (0-20)
[2023-09-17 19:16] LABS: ALT 46 U/L (16-63); AST 49 U/L (15-37); Alkaline Phosphatase 84 U/L (46-116); Anion Gap 17.9 mmol/L (3-11); BUN 78 mg/dL (7-18); Bilirubin, Direct 0.3 mg/dL (0.0-0.2); Bilirubin, Total 0.8 mg/dL (0.2-1.0); C-Reactive Protein 3.83 mg/dL (<or=0.5); CO2 23.1 mmol/L (21.0-32.0); CREATININE 3.2 mg/dL (0.70-1.30); Calcium 9.7 mg/dL (8.5-10.1); Chloride 96 mmol/L (98-107); Estimated GFR 18.27 (mL/min/1.73m2); Glucose 114 mg/dL (74-106); Lipase 96 U/L (16-77); NT-proBNP 515 pg/mL (<300); Potassium 3.3 mmol/L (3.5-5.1); Sodium 137 mmol/L (136-145); Troponin I < 50 ng/L (< or =60)
[2023-09-17 19:28] LABS: Procalcitonin 0.4 ng/mL
--- NOTE | 2023-09-17 19:47 | DI.CT_ITS ---
Exam(s) CT ABDOMEN PELVIS WO EXAM: CT ABDOMEN PELVIS WO CLINICAL HISTORY: epigastric/RUQ pain, bilious vomiting. TECHNIQUE: Imaging Protocol: Axial computed tomography images with coronal and sagittal reformatted images were created and reviewed CONTRAST MATERIAL: Intravenous: none Oral: None COMPARISON: CT CT ABDOMEN PELVIS W from 07/16/2022 FINDINGS: VISUALIZED LUNG BASES: No nodules nor pleural effusions evident. ABDOMEN: There is no ascites. Moderate size hiatal hernia again noted. LIVER: There are no obvious focal hepatic lesions evident of this noninfused study. GALLBLADDER/BILIARY: No obvious gallbladder pathology. CBD is not dilated. PANCREAS: No evidence of pancreatic mass nor dilatation of the pancreatic duct. SPLEEN: Spleen is not enlarged. No obvious intrasplenic lesions. ADRENALS: There are no significant adrenal masses. KIDNEYS:Right kidney unremarkable. There is a nonobstructive calculus at the midpole level infundibu lum in the left kidney measuring 4 mm. There is also a cyst measuring 1.2 cm off the lateral aspect of the lower left kidney. No hydronephrosis. URINARY BLADDER: Again noted are multiple calculi within the lumen of the nondistended bladder. The largest of these multiple calculi measures 2.4 cm.. ABDOMINAL AORTA: Abdominal aorta is not enlarged. LYMPH NODES: There is no retroperitoneal nor paraaortic adenopathy. ABDOMINAL WALL: There is a fat only containing small umbilical hernia. No bowel loops therein. Ther e is also a left inguinal hernia which is again noted to contain part of the sigmoid colon, similar t o previous and without significant wall edema of the colon at this level nor transition point. GI: Moderate size hiatal hernia. There is slight prominence of diameter of proximal mid jejunal loop s measuring up to 3.2 cm. No pneumatosis evident. No obvious transition point. Part of the sigmoid is in the above described left inguinal hernia, not appearing threatened at this time. There is interposition of colon between the abdominal wall in the liver. No evidence of acute appendicitis. There is diverticulosis of the left side of the colon and sigmoid without evidence of acute diverticu litis. PELVIS: LYMPH NODES: There is no intrapelvic nor inguinal adenopathy. GI: No evidence of appendicitis.No evidence of sigmoid diverticulitis. URINARY BLADDER: Multiple intraluminal calculi as described above. Mild uniform thickening of the bl adder wall noted REPRODUCTIVE: Enlarged prostate gland which measures 6 cm wide. Seminal vesicles appear unremarkable . There is no obturator adenopathy. OSSEOUS: Compression fracture of L5 appears unchanged from 07/16/2022. No new fractures evident. No significant osseous lesions. IMPRESSION: 1. There is mild diameter prominence and fold thickness prominence in proximal and mid small bowel je junal loops without an obvious transition point, ascites, nor free air. Most probably related to an element of enteritis. 2. There is diverticulosis of the left side of the colon including the sigmoid and part of the sigmoi d is again noted to be included within a left inguinal hernia sac, unchanged from 07/16/2022 and not appearing edematous nor obstructed nor with abnormal fluid nor streaking within the left inguinal her geronimo sac. 3. Moderate size hiatal hernia again noted which contains the gastric fundus. 4. There is a solitary nonobstructive 4 millimeter calculus in left kidney which was not present in July 2022. No other renal calculi but there are numerous larger calculi again noted in the urinar y bladder lumen, ranging up to 2.4 cm size and associated with uniform thickening of the urinary blad kati wall. 5. Enlarged prostate gland again noted. No obturator adenopathy. No significant osseous lesions. Other findings as above. RADIATION DOSE DELIVERED: Total DLP DATA REPOSITORY: All CT scans at this facility are submitted to the National Radiology Data Registry (NRDR) Dose Index Registry (DIR) with the [employer] (ACR). RADIATION OPTIMIZATION: All CT scans at this facility use at least one of these dose optimization te chniques: automated exposure control; mA and/or kV adjustment per patient size (includes targeted exa ms where dose is matched to clinical indication); or iterative reconstruction.
--- NOTE | 2023-09-17 20:09 | DI.VRAD_ITS ---
PROCEDURE INFORMATION: Exam: CT Abdomen And Pelvis Without Contrast Exam date and time: 09/17/2023 7:39 PM Age: 83 years old Clinical indication: Other: Epigastric/ruq pain, bilious vomiting; Additional info: No iv contrast due to poor kidney function. TECHNIQUE: Imaging protocol: Computed tomography of the abdomen and pelvis without contrast. COMPARISON: CT ABDOMEN PELVIS W 07/16/2022 6:41 AM FINDINGS: Lungs: Stable small areas of atelectasis in the right lower lung. Liver: Normal. No mass. Gallbladder and bile ducts: Normal. No calcified stones. No ductal dilation. Pancreas: Normal. No ductal dilation. Spleen: Normal. No splenomegaly. Adrenal glands: Normal. No mass. Kidneys and ureters: Single small calyceal stone. Right kidney appears normal. No hydronephrosis. 16 mm hypodense lesion in the lower left kidney compatible with cortical cyst. Stomach and bowel: Moderate-sized sliding-type hiatal hernia containing the gastric fundus. Moderate diverticulosis of the sigmoid colon. Apparent diffuse wall thickening of multiple small bowel loops throughout the abdomen compatible with enteritis. No evidence of bowel obstruction. Appendix: The appendix is visualized and appears normal. Intraperitoneal space: Unremarkable. No free air. No significant fluid collection. Vasculature: Moderate atherosclerotic calcification of the aorta and iliac arteries. No evidence of aneurysm. Lymph nodes: Unremarkable. No enlarged lymph nodes. Urinary bladder: Several bladder stones of varying sizes noted in the bladder lumen, the largest measuring approximately 2.4 cm in diameter. Reproductive: Prostate gland is enlarged, measuring 6 cm in diameter. Bones/joints: Stable chronic compression of L5. Moderate multilevel degenerative disc changes and facet arthropathy. No acute fracture. Moderate degenerative changes in the bilateral hip joints. Soft tissues: Partially visualized left inguinal hernia containing a portion of the proximal sigmoid colon. Small fat containing umbilical hernia. IMPRESSION: Moderate findings of diffuse enteritis throughout the proximal small bowel. Other stable chronic findings as noted. Dictated and Authenticated by: Alan Clemens MD. Ordering:BO Leblanc MD
[2023-09-17] MEDS: Normal Saline 1,000 ML 1000 ML IV (20:11)
--- NOTE | 2023-09-17 21:27 | W.PM.HP.N ---
Date of service: 09/17/23 Time of Service: 21:27 Assessment and Plan Assessment and plan (1) RANULFO (acute kidney injury): Status: Acute Assessment and plan: Appears nonoliguric with appropriately concentrated urine and no granular casts. Likely secondary to intravascular volume depletion from poor intake and intractable vomiting. Has received 1 L IV fluids so far and will continue volume replacement noting that his most recent echocardiogram showed an EF of 50 to 55%. No evidence of urinary tract obstruction at this point although bladder stones noted and in view of his dysuria and pyuria, will cover with ceftriaxone pending urine culture. Holding HCTZ. He is not on any PARDEEP inhibitor, ARB, NSAIDs other than aspirin. (2) Vomiting: Status: Acute Assessment and plan: Possibly due to enteritis but he has no lower GI tract symptoms. Minimal lipase elevation with normal-appearing pancreas and lack of abdominal pain would support enteritis. No loose stool or antibiotics to warrant C. difficile testing. Will maintain n.p.o. status, placed on PPI and continue antiemetics. Consider gallbladder imaging tomorrow should he have refractory symptoms or liver profile abnormalities. Ordered CPK in view of his isolated AST elevation. Also ordered EKG and troponin given multiple risk factors for vascular disease. History of Present Illness History of Present Illness Chief Complaint: Vomiting Narrative: This 83-year-old male who lives at home independently presents with 5 to 6 days of poor oral intake due to vomiting immediately after ingesting any liquids. Has not tried any solid food because of anorexia and nausea. Urine output has not changed although he has had some dysuria and darker urine. No fever or chills. No chest pain or shortness of breath. No loss of consciousness or muscle soreness. He denies any recent antibiotic use and was last hospitalized here 2 months ago briefly for positional vertigo. No medication changes since then. No prior abdominal surgeries. No recent travel or suspicious water ingestion. No loose stool noted and no melena or hematochezia. Emesis has been nonbloody and greenish. His medical history includes hypertension, hyperlipidemia, and urolithiasis with previous stones in his bladder and kidneys. Has not had any flank pain or gross hematuria. Review of Systems All systems reviewed & are unremarkable except as noted in HPI and below PFSH All Active Problems (Updated 09/17/23 @ 21:33 by Benji R Johnson, PA) Pancreatitis (Chronic) Acute kidney injury (Acute) Vomiting (Acute) RANULFO (acute kidney injury) (Acute) BPPV (benign paroxysmal positional vertigo) (Acute) Dizziness (Acute) Hyperplastic colon polyp (Acute) Tubular adenoma of colon (Acute) Diverticulitis (Chronic) Acute GI bleeding (Acute) Ceruminosis (Acute) Dental caries (Acute) Chronic pain syndrome (Chronic) Bladder stone (Acute) Calcium nephrolithiasis (Acute) w/ hydronephrosis and BRIELLE (creat 1.8) Diverticulosis (Acute ~07/2018) Left inguinal hernia (Acute ~07/2018) 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 Allergic rhinitis (Acute) Essential hypertension (Acute 07/17/13) Gastroesophageal reflux (Acute) Hyperlipidemia (Acute) Joint pain (Acute) DJD Kidney stone on left side (Acute 12/18/14) 12/18/14 [facility] stented and removed 07/29/18 WITH HYDRONEPHROSIS Lumbago (Acute) L 5 compression fx; Low back pain (Acute) L 5 compression fx; Neoplasm of unspecified nature of bone, soft tissue, 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) Obstructive sleep apnea syndrome (Acute) severe; CPAP (inital studies 2007 [facility] and [facility]) Skin lesion of cheek (Acute 08/06/15) Medical History HTN (hypertension) Kidney stones Surgical History History of colonoscopy (~08/2022) Open Carpal Tunnel release (08/14/14) LEFT/DR LUIS HERNIA REPAIR X 2 Extraction of cataract B/L Family History Mother Diabetes Essential hypertension Heart disease Father Essential hypertension Personal history of malignant neoplasm COLON/SKIN Heart disease Hyperlipidemia Asthma Maternal Grandmother Essential hypertension Heart disease Stroke Esophageal cancer Sister Essential hypertension Hyperlipidemia Social History Smoking/Tobacco Use Status: Former Tobacco Use tobacco type: pipe and cigars Quit Date: 07/09/59 Tobacco: How many years used: 2 Second Hand Exposure: No Smoking risk assessment performed?: Yes Alcohol Intake: former Drug use: Never Substance use type: does not use Caregiver/Support person: No Household members: none Housing: house Communication Needs: None Pets and animals: No Sexually active: No Do you think of yourself as: straight/heterosexual Current gender identity: male What is your relationship status?: How often do you talk on the phone with friends or family?: three or more times per week How often do you get together with friends or relatives?: three or more times per week How often do you attend yazdanism or evangelical services?: 4 or more times per year Do you belong to any clubs or organized social groups?: no Panel score (0-1 are the most socially isolated patients): 2 What type of physical activity do you participate in: walking Duration: < 15 minutes/day Frequency: 1-2 times per week Barby/Jehovah'S Witness: None Special barby needs: No Seatbelt use: always Helmet use: No Drive intox 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: No Do you feel safe at home: Yes Do you feel safe in your relationship?: Yes Meds Allergies and Home Medications Allergies Allergy/AdvReac Type Severity Reaction Status Date / Time birch Allergy Unknown Verified 08/08/23 14:28 chocolate flavor AdvReac Diarrhea Verified 08/08/23 14:28 clindamycin AdvReac DIARRHEA Verified 08/08/23 14:28 DUST Allergy Unknown Uncoded 08/08/23 14:28 MOLDS AND SMUT Allergy Unknown Uncoded 08/08/23 14:28 PINE TREE Allergy Unknown Uncoded 08/08/23 14:28 RAGWEED Allergy Unknown Uncoded 08/08/23 14:28 Home Medications Medication Instructions Recorded Confirmed Type aspirin 81 mg tablet,delayed 81 mg PO DAILY 11/16/12 07/09/23 History release (Ecotrin Low Strength) saw palmetto 450 mg capsule 450 mg PO BID 11/16/12 07/09/23 History Centrum Silver Ultra Men's Tab 1 ea PO DAILY 01/12/14 07/09/23 History fluticasone propionate 50 1 - 2 spry NS DAILY PRN ##3 07/28/14 07/09/23 History mcg/actuation nasal spray,suspension (Flonase) flu vac qs (6 ms up) CD 60 0.5 ml IM ONCE #0.5 mL 06/17/21 07/09/23 Clinic mcg (15 mcg x 4)/0.5 mL IM susp loratadine 10 mg tablet 10 mg PO DAILY #90 tab-caps 09/01/21 07/09/23 Rx potassium chloride 10 mEq 10 meq PO BID #180 tab-caps 11/01/22 07/09/23 Rx tablet,extended release meclizine 12.5 mg tablet 12.5 mg PO TID PRN Dizziness #20 07/10/23 Rx tabs hydrochlorothiazide 12.5 mg tablet 12.5 mg PO DAILY #90 tab-caps 07/18/23 07/18/23 Rx metoprolol tartrate 25 mg tablet 25 mg PO BID #180 tab-caps 07/18/23 07/18/23 Rx omeprazole 20 mg capsule,delayed 20 mg PO QAM #90 tab-caps 07/18/23 07/18/23 Rx release simvastatin 20 mg tablet 20 mg PO HS #90 tab-caps 07/18/23 07/18/23 Rx tramadol 50 mg tablet 50 mg PO Q6H PRN pain #50 tabs 07/18/23 07/18/23 Rx Exam Narrative Exam Narrative: General pleasant male, NAD, appears comfortable HEENT pupils are equal round and reactive, no conjunctival pallor or scleral icterus, oral mucosa slightly dry Neck supple, no lymphadenopathy or thyromegaly, carotid pulses normal and symmetric CV regular, no murmur or gallop, no JVD Lungs clear Abdomen soft, bowel sounds are present, there is mild generalized tenderness without focal findings and without mass or rebound Extremities no peripheral edema, distal pulses normal Skin no rash, normal turgor Joints no inflammatory changes noted Neurologic moves all 4 extremities appropriately with no tremor Results Imaging Additional studies: Pertinent findings include urine with specific gravity greater than 1.030, microscopic pyuria and hematuria noted, hyaline casts noted Lactate minimally elevated at 1.7 with anion gap 8 BUN 78 and creatinine 3.2 from baselines of 12 and 1.2 Lipase minimally elevated at 98, AST [address] abdomen and pelvis which showed fluid-filled dilated loops of small bowel consistent with enteritis, no evidence of urinary tract obstruction although stones in the bladder noted Labs 09/17/23 18:40 09/17/23 18:40 Labs: Laboratory Results - last 24 hr 09/17/23 09/17/23 09/17/23 16:30 18:40 21:22 WBC 10.06 RBC 5.78 Hgb 16.0 Hct 47.0 MCV 81 MCH 27.7 MCHC 34.0 RDW 12.9 Plt Count 298 MPV 12.5 H Immature Gran % 0.8 Neutrophils % 63.9 Lymphocytes % 21.5 Monocytes % 12.6 Eosinophils % 0.5 Basophils % 0.7 Nucleated RBC % 0.0 Absolute Neutrophils 6.43 Absolute Lymphocytes 2.16 Absolute Monocytes 1.27 H Absolute Eosinophils 0.05 Absolute Basophils 0.07 ESR 37 H VBG Lactate 1.7 H Sodium 137 Potassium 3.3 L Chloride 96 L Carbon Dioxide 23.1 Anion Gap 17.9 H BUN 78 H Creatinine 3.2 H Est GFR (CKD-EPI 2020) 18.27 Glucose 114 H Calcium 9.7 Magnesium 2.0 Total Bilirubin 0.8 Conjugated Bilirubin 0.3 H AST 49 H ALT 46 Alkaline Phosphatase 84 Troponin I < 50 Cancelled C-Reactive Protein 3.83 H NT-Pro-B Natriuret Pep 515 H Total Protein 9.0 H Albumin 4.0 Lipase 96 H Procalcitonin 0.4 Urine Color Dark Yellow Urine Clarity Turbid Urine pH 5.5 Ur Specific [place] >= 1.030 H Urine Protein >=300 H Urine Ketones 15 H Urine Blood Large H Urine Nitrite Negative Urine Bilirubin Negative Urine Urobilinogen 0.2 Ur Leukocyte Esterase Trace H Urine RBC 20-50 H Urine WBC 10-20 H Ur Epithelial Cells Few Urine Crystals Few Amorphous Urine Bacteria Few Urine Casts 5-10 Hyaline Urine Mucus Trace Urine Other Few Renal Ur Culture Indicated? Yes Urine Glucose Negative Last Vital Signs Temp 36.6 C 09/17/23 16:28 Pulse 112 H 09/17/23 16:28 Resp 18 09/17/23 16:28 BP 123/79 09/17/23 16:28 Pulse Ox 97 09/17/23 16:28 Time Spent Time spent with Patient: 40-54 minutes Time was spent: preparing to see the patient(eg.review tests), obtaining and/or reviewing separately otained hiistory, ordering medications,tests, procedures, referring, communicating with other health home care administrator, indepentently interpreting results and counseling the patient
--- NOTE | 2023-09-17 21:39 | RT.EKG_ITS ---
APPROVED REPORT Exam: Resting ECG Reason for Exam: hypokalemia Patient Location: I HR:92 bpm ECG Measurements Heart Rate 92 AXIS HI 186 P 44 QRSd 113 QRS -67 QT 366 T 106 QTc 453 Conclusion Sinus rhythm...normal P axis, V-rate 60- 99 Left anterior fascicular block...axis(240,-40), init forces inf Anterior infarct, old...Q >40mS, abnormal ST-T, V2-V5 Nonspecific T abnormalities, lateral leads...T <-0.10mV, I aVL V5 V6
[2023-09-17] MEDS: Ondansetron 4 MG/2 ML VIAL IVP (22:53)
[2023-09-17] MEDS: cefTRIAXone 1,000 MG in Normal Saline 50 ML 100 MG IVPB (22:53)
[2023-09-17] MEDS: Pantoprazole 40 MG VIAL IVP (23:45)
[2023-09-18] VITALS (102 sets, daily range): BP systolic 120–172; BP diastolic 67–146; PULSE 65–95; RESP 8–28; TEMP 36–36.8; O2SAT 87–98
[2023-09-18 00:44] LABS: Lactate 1.5 mmol/L (0.6-1.4)
[2023-09-18 00:57] LABS: Anion Gap 16.2 mmol/L (3-11); BUN 72 mg/dL (7-18); CO2 23.8 mmol/L (21.0-32.0); CREATININE 2.7 mg/dL (0.70-1.30); Chloride 98 mmol/L (98-107); Glucose 100 mg/dL (74-106); Sodium 138 mmol/L (136-145)
[2023-09-18 01:02] LABS: Creatine Kinase 733 U/L (39-308)
[2023-09-18 01:05] LABS: Troponin I < 50 ng/L (< or =60)
--- NOTE | 2023-09-18 01:11 | NUR.NOTE ---
Nursing Note: Received report from Shala Bellamy RN at approximately 2200 prior to her departure. Upon entering patients worklist, this RN noted that abdominal assessment and secondary assessment were not completed by prior shift. Patient arrived to the department on 09/17/23 at 16:20.
[2023-09-18] MEDS: Potassium Chloride 20 MEQ TABCR 40 MEQ PO (02:17)
[2023-09-18 06:36] LABS: Abs Immature Grans 0.15 10^3/uL (0.0-0.06); Absolute Basophil Count 0.06 10^3/uL (0.0-0.2); Absolute Eosinophil Count 0.19 10^3/uL (0.0-0.7); Absolute Lymphocyte Count 2.41 10^3/uL (1.2-3.4); Absolute Monocyte Count 1.23 10^3/uL (0.1-0.8); Absolute Neutrophil Count 5.91 10^3/uL (1.2-6.7); Basophils % 0.6; Eosinophils % 1.9; HCT 43.5 % (40.0-50.0); HGB 14.8 g/dL (13.5-17.5); Immature Grans % 1.5; Lymphocytes % 24.2; MCH 28.4 pg (27.0-33.0); MCV 83 fL (80-95); MPV 12.5 fL (8.0-11.0); Monocytes % 12.4; Neutrophils % 59.4; Platelet Count 269 10^3/uL (130-400); RBC 5.22 10^6/uL (4.36-5.78); RDW 13.1 % (11.8-14.1); RDW-SD 39.5 fL; WBC 9.95 10^3/uL (4.4-10.8)
[2023-09-18 06:59] LABS: ALT 44 U/L (16-63); AST 41 U/L (15-37); Albumin 3.5 g/dL (3.4-5.0); Alkaline Phosphatase 70 U/L (46-116); Anion Gap 11.6 mmol/L (3-11); BUN 65 mg/dL (7-18); Bilirubin, Total 0.7 mg/dL (0.2-1.0); CO2 26.4 mmol/L (21.0-32.0); CREATININE 2.6 mg/dL (0.70-1.30); Calcium 9.2 mg/dL (8.5-10.1); Chloride 101 mmol/L (98-107); Estimated GFR 23.43 (mL/min/1.73m2); Glucose 99 mg/dL (74-106); Potassium 3.3 mmol/L (3.5-5.1); Sodium 139 mmol/L (136-145); Total Protein 7.8 g/dL (6.4-8.2)
[2023-09-18] MEDS: Enoxaparin 30 MG/0.3 ML SYR SC (07:59)
[2023-09-18] MEDS: Aspirin E.C. 81 MG TABEC PO (08:56)
[2023-09-18] MEDS: Metoprolol 25 MG TAB PO ×2 (08:56→21:28)
[2023-09-18] MEDS: Loratidine 10 MG TAB PO (08:56)
[2023-09-18] MEDS: POTASSIUM CHLORIDE/D5-0.45NACL 1,000 ML 125 MEQ IV (09:32)
--- NOTE | 2023-09-18 09:47 | HPE_ITS ---
Date of service: 09/18/23 Time of Service: 09:47 [facility] All Active Problems (Updated 09/17/23 @ 21:33 by BRADEN Gamble) Pancreatitis (Chronic) Acute kidney injury (Acute) Vomiting (Acute) RANULFO (acute kidney injury) (Acute) BPPV (benign paroxysmal positional vertigo) (Acute) Dizziness (Acute) Hyperplastic colon polyp (Acute) Tubular adenoma of colon (Acute) Diverticulitis (Chronic) Acute GI bleeding (Acute) Ceruminosis (Acute) Dental caries (Acute) Chronic pain syndrome (Chronic) Bladder stone (Acute) Calcium nephrolithiasis (Acute) w/ hydronephrosis and BRIELLE (creat 1.8) Diverticulosis (Acute ~07/2018) Left inguinal hernia (Acute ~07/2018) 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 Allergic rhinitis (Acute) Essential hypertension (Acute 07/17/13) Gastroesophageal reflux (Acute) Hyperlipidemia (Acute) Joint pain (Acute) DJD Kidney stone on left side (Acute 12/18/14) 12/18/14 [facility] stented and removed 07/29/18 WITH HYDRONEPHROSIS Lumbago (Acute) L 5 compression fx; Low back pain (Acute) L 5 compression fx; Neoplasm of unspecified nature of bone, soft tissue, 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) Obstructive sleep apnea syndrome (Acute) severe; CPAP (inital studies [address] [place] [address] and [facility]) Skin lesion of cheek (Acute 08/06/15) Medical History HTN (hypertension) Kidney stones Surgical History History of colonoscopy (~08/2022) Open Carpal Tunnel release (08/14/14) LEFT/DR LUIS HERNIA REPAIR X 2 Extraction of cataract B/L Family History Mother Diabetes Essential hypertension Heart disease Father Essential hypertension Personal history of malignant neoplasm COLON/SKIN Heart disease Hyperlipidemia Asthma Maternal Grandmother Essential hypertension Heart disease Stroke Esophageal cancer Sister Essential hypertension Hyperlipidemia Social History Smoking/Tobacco Use Status: Former Tobacco Use tobacco type: pipe and cigars Quit Date: 07/09/59 Tobacco: How many years used: 2 Second Hand Exposure: No Smoking risk assessment performed?: Yes Alcohol Intake: former Drug use: Never Substance use type: does not use Caregiver/Support person: No Household members: none Housing: house Communication Needs: None Pets and animals: No Sexually active: No Do you think of yourself as: straight/heterosexual Current gender identity: male What is your relationship status?: How often do you talk on the phone with friends or family?: three or more times per week How often do you get together with friends or relatives?: three or more times per week How often do you attend anabaptist or zoroastrianism services?: 4 or more times per year Do you belong to any clubs or organized social groups?: no Panel score (0-1 are the most socially isolated patients): 2 What type of physical activity do you participate in: walking Duration: < 15 minutes/day Frequency: 1-2 times per week Barby/Buddhism: None Special barby needs: No Seatbelt use: always Helmet use: No Drive 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 Do you feel safe at home: Yes Do you feel safe in your relationship?: Yes Meds Allergies and Home Medications Allergies Allergy/AdvReac Type Severity Reaction Status Date / Time birch Allergy Unknown Verified 08/08/23 14:28 chocolate flavor AdvReac Diarrhea Verified 08/08/23 14:28 clindamycin AdvReac DIARRHEA Verified 08/08/23 14:28 DUST Allergy Unknown Uncoded 08/08/23 14:28 MOLDS AND SMUT Allergy Unknown Uncoded 08/08/23 14:28 PINE TREE Allergy Unknown Uncoded 08/08/23 14:28 RAGWEED Allergy Unknown Uncoded 08/08/23 14:28 Home Medications Medication Instructions Recorded Confirmed Type aspirin 81 mg tablet,delayed 81 mg PO DAILY 11/16/12 09/18/23 History release (Ecotrin Low Strength) saw palmetto 450 mg capsule 450 mg PO BID 11/16/12 09/18/23 History Centrum Silver Ultra Men's Tab 1 ea PO DAILY 01/12/14 09/18/23 History fluticasone propionate 50 1 - 2 spry NS DAILY PRN ##3 07/28/14 09/18/23 History mcg/actuation nasal spray,suspension (Flonase) flu vac qs (6 ms up) CD 60 0.5 ml IM ONCE #0.5 mL 06/17/21 09/18/23 Clinic mcg (15 mcg x 4)/0.5 mL IM susp loratadine 10 mg tablet 10 mg PO DAILY #90 tab-caps 09/01/21 09/18/23 Rx potassium chloride 10 mEq 10 meq PO BID #180 tab-caps 11/01/22 09/18/23 Rx tablet,extended release meclizine 12.5 mg tablet 12.5 mg PO TID PRN Dizziness #20 07/10/23 09/18/23 Rx tabs hydrochlorothiazide 12.5 mg tablet 12.5 mg PO DAILY #90 tab-caps 07/18/23 09/18/23 Rx metoprolol tartrate 25 mg tablet 25 mg PO BID #180 tab-caps 07/18/23 09/18/23 Rx omeprazole 20 mg capsule,delayed 20 mg PO QAM #90 tab-caps 07/18/23 09/18/23 Rx release simvastatin 20 mg tablet 20 mg PO HS #90 tab-caps 07/18/23 09/18/23 Rx tramadol 50 mg tablet 50 mg PO Q6H PRN pain #50 tabs 07/18/23 09/18/23 Rx Results Labs 09/18/23 06:30 09/18/23 06:30 Labs: Laboratory Results - last 24 hr 09/17/23 09/17/23 09/17/23 16:30 18:40 21:22 WBC 10.06 RBC 5.78 Hgb 16.0 Hct 47.0 MCV 81 MCH 27.7 MCHC 34.0 RDW 12.9 Plt Count 298 MPV 12.5 H Immature Gran % 0.8 Neutrophils % 63.9 Lymphocytes % 21.5 Monocytes % 12.6 Eosinophils % 0.5 Basophils % 0.7 Nucleated RBC % 0.0 Absolute Neutrophils 6.43 Absolute Lymphocytes 2.16 Absolute Monocytes 1.27 H Absolute Eosinophils 0.05 Absolute Basophils 0.07 ESR 37 H VBG Lactate 1.7 H Sodium 137 Potassium 3.3 L Chloride 96 L Carbon Dioxide 23.1 Anion Gap 17.9 H BUN 78 H Creatinine 3.2 H Est GFR (CKD-EPI 2020) 18.27 Glucose 114 H Calcium 9.7 Magnesium 2.0 Total Bilirubin 0.8 Conjugated Bilirubin 0.3 H AST 49 H ALT 46 Alkaline Phosphatase 84 Creatine Kinase Troponin I < 50 Cancelled C-Reactive Protein 3.83 H NT-Pro-B Natriuret Pep 515 H Total Protein 9.0 H Albumin 4.0 Lipase 96 H Procalcitonin 0.4 Urine Color Dark Yellow Urine Clarity Turbid Urine pH 5.5 Ur Specific [place] >= 1.030 H Urine Protein >=300 H Urine Ketones 15 H Urine Blood Large H Urine Nitrite Negative Urine Bilirubin Negative Urine Urobilinogen 0.2 Ur Leukocyte Esterase Trace H Urine RBC 20-50 H Urine WBC 10-20 H Ur Epithelial Cells Few Urine Crystals Few Amorphous Urine Bacteria Few Urine Casts 5-10 Hyaline Urine Mucus Trace Urine Other Few Renal Ur Culture Indicated? Yes Urine Glucose Negative 09/18/23 09/18/23 00:40 06:30 WBC 9.95 RBC 5.22 Hgb 14.8 Hct 43.5 MCV 83 MCH 28.4 MCHC 34.0 RDW 13.1 Plt Count 269 MPV 12.5 H Immature Gran % 1.5 Neutrophils % 59.4 Lymphocytes % 24.2 Monocytes % 12.4 Eosinophils % 1.9 Basophils % 0.6 Nucleated RBC % 0.0 Absolute Neutrophils 5.91 Absolute Lymphocytes 2.41 Absolute Monocytes 1.23 H Absolute Eosinophils 0.19 Absolute Basophils 0.06 ESR VBG Lactate 1.5 H Sodium 138 139 Potassium 3.0 L 3.3 L Chloride 98 101 Carbon Dioxide 23.8 26.4 Anion Gap 16.2 H 11.6 H BUN 72 H 65 H Creatinine 2.7 H 2.6 H Est GFR (CKD-EPI 2020) 22.40 23.43 Glucose 100 99 Calcium 9.0 9.2 Magnesium 2.0 Total Bilirubin 0.7 Conjugated Bilirubin AST 41 H ALT 44 Alkaline Phosphatase 70 Creatine Kinase 733 H Troponin I < 50 C-Reactive Protein NT-Pro-B Natriuret Pep Total Protein 7.8 Albumin 3.5 Lipase Procalcitonin Urine Color Urine Clarity Urine pH Ur Specific [place] Urine Protein Urine Ketones Urine Blood Urine Nitrite Urine Bilirubin Urine Urobilinogen Ur Leukocyte Esterase Urine RBC Urine WBC Ur Epithelial Cells Urine Crystals Urine Bacteria Urine Casts Urine Mucus Urine Other Ur Culture Indicated? Urine Glucose Last Vital Signs Temp 36.0 C L 09/18/23 08:06 Pulse 77 09/18/23 08:06 Resp 16 09/18/23 08:06 BP 144/80 H 09/18/23 08:06 Pulse Ox 98 09/18/23 08:06
[2023-09-18 09:55] LABS: Magnesium 2.1 mg/dL (1.8-2.4)
--- NOTE | 2023-09-18 09:56 | W.PM.PROGNOT ---
Date of Service Date of service: 09/18/23 Time of Service: 09:56 Assessment and Plan Assessment and plan (1) RANULFO (acute kidney injury): Status: Acute Assessment and plan: Most likely pre-renal but with elevated CPK at 733 ( no urine hyaline casts), will nevertheless look into BUN/Cr ratio Cr 2.7 on admission and now 2.6 Continue IVF LR at 125 cc/hr Last echo showed LVEF 50-55% Avoid nephrotoxic agents Hold HCTZ BMP in a.m. (2) UTI (urinary tract infection): Status: Acute Assessment and plan: UA completed and C&S pending Continue Ceftriaxone (3) Vomiting: Status: Acute Assessment and plan: CT abdomen and pelvis: Moderate findings of diffuse enteritis throughout the proximal small bowel. -Stomach and bowel: Moderate-sized sliding-type hiatal hernia containing the gastric fundus. Moderate diverticulosis of the sigmoid colon. Apparent diffuse wall thickening of multiple small bowel loops throughout the abdomen compatible with enteritis. No evidence of bowel obstruction -Gallbladder and bile ducts: Normal. No calcified stones. No ductal dilation. -Pancreas: Normal. No ductal dilation. No further N/V this AM Requesting oral intake: On clears now and will continue to monitor PRN ondansetron Continue PPI CPK 733 with AST down to 41 from 49 LFT's in AM Trend CPK (4) Hypokalemia: Status: Acute Assessment and plan: Replacement ordered mag level was 2.1 reevaluate K in AM (5) Contraindication to deep vein thrombosis (DVT) prophylaxis: Status: Acute Assessment and plan: On lovenox (6) Discharge planning issues: Status: Acute Assessment and plan: CM to f/u if needs arise Subjective Subjective Interval history since last seen: Patient reports sleeping well, tolerating clear liquid diet, moving his bowel, voiding without dysuria. Patient denies chills, fever, night sweats, dizziness, change in vision, shortness of breath, cough, nausea, further vomiting, diarrhea. Exam Narrative Exam Narrative: Constitutional The patient is sitting in bed comfortable and cooperative during the interview, and without acute distress. HENMT: Head is atraumatic, normocephalic, no lymphadenopathy. Facial structures with normal appearance Eyes: Well aligned, intact ROM Neck: Normal ROM, no meningeal signs Neuro:alert and oriented x 3. No neurological focal deficit Chest:Chest is symmetrical and normal appearance Resp: Normal respiratory pattern, clear lung bilaterally Cardio: regular rhythm, S1, S2 distant positive pulses to all 4 extremities GI: Abdomen is not distended, soft and non tender, bowel sounds are present : Negative Costovertebral angle tenderness Back/spine/Pelvis: No back tenderness, normal alignment Integumentary: No skin lesions or rash on exposed skin Extremities: strength 5/5 to bilateral lower and upper extremities Psych: RASS 0, congruent mood and normal affect. Objective Last Vital Signs Temp 36.0 C L 09/18/23 08:06 Pulse 77 09/18/23 08:06 Resp 16 09/18/23 08:06 BP 144/80 H 09/18/23 08:06 Pulse Ox 98 09/18/23 08:06 Laboratory Results - last 24 hr 09/17/23 09/17/23 09/17/23 16:30 18:40 21:22 WBC 10.06 RBC 5.78 Hgb 16.0 Hct 47.0 MCV 81 MCH 27.7 MCHC 34.0 RDW 12.9 Plt Count 298 MPV 12.5 H Immature Gran % 0.8 Neutrophils % 63.9 Lymphocytes % 21.5 Monocytes % 12.6 Eosinophils % 0.5 Basophils % 0.7 Nucleated RBC % 0.0 Absolute Neutrophils 6.43 Absolute Lymphocytes 2.16 Absolute Monocytes 1.27 H Absolute Eosinophils 0.05 Absolute Basophils 0.07 ESR 37 H VBG Lactate 1.7 H Sodium 137 Potassium 3.3 L Chloride 96 L Carbon Dioxide 23.1 Anion Gap 17.9 H BUN 78 H Creatinine 3.2 H Est GFR (CKD-EPI 2020) 18.27 Glucose 114 H Calcium 9.7 Magnesium 2.0 Total Bilirubin 0.8 Conjugated Bilirubin 0.3 H AST 49 H ALT 46 Alkaline Phosphatase 84 Creatine Kinase Troponin I < 50 Cancelled C-Reactive Protein 3.83 H NT-Pro-B Natriuret Pep 515 H Total Protein 9.0 H Albumin 4.0 Lipase 96 H Procalcitonin 0.4 Urine Color Dark Yellow Urine Clarity Turbid Urine pH 5.5 Ur Specific [place] >= 1.030 H Urine Protein >=300 H Urine Ketones 15 H Urine Blood Large H Urine Nitrite Negative Urine Bilirubin Negative Urine Urobilinogen 0.2 Ur Leukocyte Esterase Trace H Urine RBC 20-50 H Urine WBC 10-20 H Ur Epithelial Cells Few Urine Crystals Few Amorphous Urine Bacteria Few Urine Casts 5-10 Hyaline Urine Mucus Trace Urine Other Few Renal Ur Culture Indicated? Yes Urine Glucose Negative 09/18/23 09/18/23 00:40 06:30 WBC 9.95 RBC 5.22 Hgb 14.8 Hct 43.5 MCV 83 MCH 28.4 MCHC 34.0 RDW 13.1 Plt Count 269 MPV 12.5 H Immature Gran % 1.5 Neutrophils % 59.4 Lymphocytes % 24.2 Monocytes % 12.4 Eosinophils % 1.9 Basophils % 0.6 Nucleated RBC % 0.0 Absolute Neutrophils 5.91 Absolute Lymphocytes 2.41 Absolute Monocytes 1.23 H Absolute Eosinophils 0.19 Absolute Basophils 0.06 ESR VBG Lactate 1.5 H Sodium 138 139 Potassium 3.0 L 3.3 L Chloride 98 101 Carbon Dioxide 23.8 26.4 Anion Gap 16.2 H 11.6 H BUN 72 H 65 H Creatinine 2.7 H 2.6 H Est GFR (CKD-EPI 2020) 22.40 23.43 Glucose 100 99 Calcium 9.0 9.2 Magnesium 2.0 Total Bilirubin 0.7 Conjugated Bilirubin AST 41 H ALT 44 Alkaline Phosphatase 70 Creatine Kinase 733 H Troponin I < 50 C-Reactive Protein NT-Pro-B Natriuret Pep Total Protein 7.8 Albumin 3.5 Lipase Procalcitonin Urine Color Urine Clarity Urine pH Ur Specific [place] Urine Protein Urine Ketones Urine Blood Urine Nitrite Urine Bilirubin Urine Urobilinogen Ur Leukocyte Esterase Urine RBC Urine WBC Ur Epithelial Cells Urine Crystals Urine Bacteria Urine Casts Urine Mucus Urine Other Ur Culture Indicated? Urine Glucose Time Spent with Patient Time Spent with Patient: 25-34 minutes Time was spent: preparing to see the patient(eg.review tests), ordering medications,tests, procedures, referring, communicating with other health manager critical care unit, indepentently interpreting results, counseling the patient and care coordination
--- NOTE | 2023-09-18 10:06 | PDOC.CMPRO ---
Date of service: 09/18/23 Care Management Progress Note Progress Note Text Progress Note Text: S/O: Emmanuel was lying in bed when CM entered his room. Emmanuel said he had an IV he pulled out that had potassium running. New IV placed and meds restarted. Emmanuel displayed signs of discomfort and pain so CM interaction was brief. He described being in a lot of pain. He said he recently was given tylenol so is waiting for it to take effect. He did say he was being asked to do his HIPPA; CM let him know verbal is fine for now and this can be visited again when he is not in so much pain. CM following. A: Emmanuel is an 83 year old male admitted to [facility] 09/17/23 for an RANULFO. P: When medically cleared, Emmanuel will be discharged home. He will transport home via private vehicle. He will follow up with his PCP and discharge plan of care as prescribed.There will be no new services. SDOH(Care Management) Screening Will the Patient Participate in the Screening?: Yes Do you worry about having a steady place to live?: no Problems where you live: no known problems In the past 12 months, have you had to go without electric, gas, oil or water in your home?: no Have you or anyone in your house had to go without enough food to eat?: no Has lack of transportation kept you from medical appointments or from doing things needed for daily living?: no Has anyone in your support network made you feel unsafe for any reason?: no
[2023-09-18] MEDS: POTASSIUM CHLORIDE 20 MEQ/100 ML BAG 50 MEQ IVPB ×2 (10:59→13:07)
--- NOTE | 2023-09-18 14:11 | CHAPLAIN ---
Emmanuel was resting in bed when I visited. We know each other from out in the community. Emmanuel said his kids know that he is here. He lives alone in [place]. Emmanuel is an active member of the [facility] [employer] and he said the zoroastrian is aware that he is here. I will continue to visit.
[2023-09-18] MEDS: Acetaminophen 325 MG TAB PO (14:32)
--- NOTE | 2023-09-18 19:37 | RESPIRATORY ---
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 Pt. advised that he does not use any kind of breathing machine and never had one before.
[2023-09-18] MEDS: Ondansetron 4 MG/2 ML VIAL IVP (21:27)
[2023-09-18] MEDS: Pantoprazole 40 MG VIAL IVP (21:28)
[2023-09-18] MEDS: Lactated Ringers 1,000 ML 125 ML IV (21:28)
[2023-09-18] MEDS: cefTRIAXone 1 GM/50 ML BAG IVPB (22:17)
[2023-09-18] MEDS: Normal Saline Flush 10 ML SYR (22:18)
[2023-09-19] VITALS (7 sets, daily range): BP systolic 123–144; BP diastolic 72–83; PULSE 53–68; RESP 14–18; TEMP 35.9–37; O2SAT 96–97
[2023-09-19] MEDS: Lactated Ringers 1,000 ML 125 ML IV ×2 (06:27→15:45)
[2023-09-19 07:11] LABS: HCT 39.9 % (40.0-50.0); HGB 13.4 g/dL (13.5-17.5); MCHC 33.6 % (32.0-36.0); MCV 84 fL (80-95); MPV 12.5 fL (8.0-11.0); Platelet Count 256 10^3/uL (130-400); RBC 4.78 10^6/uL (4.36-5.78); RDW 13.1 % (11.8-14.1); RDW-SD 40.7 fL; WBC 11.18 10^3/uL (4.4-10.8)
[2023-09-19 07:28] LABS: Absolute Eosinophil Count 0.45 10^3/uL (0.0-0.7); Absolute Lymphocyte Count 4.25 10^3/uL (1.2-3.4); Absolute Monocyte Count 0.67 10^3/uL (0.1-0.8); Atypical Lymphocytes % 9; Diff Comment Manual Differential; Metamyelocytes % 1; RBC Morphology Normal
[2023-09-19 07:46] LABS: ALT 35 U/L (16-63); AST 30 U/L (15-37); Alkaline Phosphatase 68 U/L (46-116); Anion Gap 11.5 mmol/L (3-11); BUN 44 mg/dL (7-18); Bilirubin, Direct 0.1 mg/dL (0.0-0.2); Bilirubin, Total 0.4 mg/dL (0.2-1.0); CO2 23.5 mmol/L (21.0-32.0); CREATININE 1.6 mg/dL (0.70-1.30); Calcium 8.8 mg/dL (8.5-10.1); Chloride 106 mmol/L (98-107); Creatine Kinase 273 U/L (39-308); Estimated GFR 41.96 (mL/min/1.73m2); Glucose 96 mg/dL (74-106); Magnesium 2.1 mg/dL (1.8-2.4); Potassium 3.7 mmol/L (3.5-5.1); Sodium 141 mmol/L (136-145); Total Protein 6.9 g/dL (6.4-8.2)
[2023-09-19] MEDS: Enoxaparin 30 MG/0.3 ML SYR SC (08:16)
[2023-09-19] MEDS: Ondansetron 4 MG/2 ML VIAL IVP ×2 (09:12→15:45)
[2023-09-19] MEDS: Metoprolol 25 MG TAB PO ×2 (09:13→20:38)
[2023-09-19] MEDS: Loratidine 10 MG TAB PO (09:13)
[2023-09-19] MEDS: Aspirin E.C. 81 MG TABEC PO (09:13)
--- NOTE | 2023-09-19 10:18 | PDOC.CMDIS ---
Date of service: 09/20/23 LACE Index Scoring Tool Questions: Length of Stay (in days): 3 Was the patient admitted via the E.D.?: Yes Care Management Discharge Plan Reason for Hospitalization: RANULFO Discharge Plan: Emmanuel will return home and transport via private vehicle with family. He will follow up with his PCP plan of care as prescribed. CM went over HIPPA form on file, Emmanuel did not wish to make any changes as stated previously. He says he is happy to be going home. CM completed IMM form with Emmanuel. Patient/Family Education Needs: Review discharge instructions and discuss Ask Me Three SDOH Health Related Social Needs: No Data to Display
--- NOTE | 2023-09-19 11:11 | W.PM.DS.N ---
Date of service: 09/19/23 Time of Service: 11:14 DS: Diagnosis Discharge Diagnosis (1) RANULFO (acute kidney injury): Status: Acute (2) UTI (urinary tract infection): Status: Acute (3) Vomiting: Status: Acute (4) Hypokalemia: Status: Acute (5) Contraindication to deep vein thrombosis (DVT) prophylaxis: Status: Acute (6) Discharge planning issues: Status: Acute Discharge Plan Disposition Patient Disposition: Home Condition: Improving Discharge Details Reason For Visit: RANULFO Admit Date/Time: 09/17/23 21:21 Admit Provider: Josiah Walton Attending Provider: Josiah Walton Primary Care Provider: Alfredo Burnett Home Meds and New Rx's Prescriptions: Continued metoprolol tartrate 25 mg tablet 25 mg PO BID Qty: 180 4RF Rx Instructions: 1 TAB BID omeprazole 20 mg capsule,delayed release(DR/EC) 20 mg PO QAM Qty: 90 4RF Rx Instructions: 1 TAB QAM simvastatin 20 mg tablet 20 mg PO HS Qty: 90 4RF Rx Instructions: 1 TAB hs tramadol 50 mg tablet 50 mg PO Q6H PRN (Reason: pain) Qty: 50 0RF Rx Instructions: may take along with tylenol or NSAIDs flu vac qs 2020-(6 ms up) CD 60 mcg (15 mcg x 4)/0.5 mL suspension 0.5 ml IM ONCE Qty: 0.5 0RF aspirin [Ecotrin Low Strength] 81 MG tablet,delayed release (DR/EC) 81 mg PO DAILY Hold Instructions: Resume on 07/24/22. Resume if no bleeding x 1 week saw palmetto 450 MG capsule 450 mg PO BID CENTRUM SILVER ULTRA MEN'S TAB 1 EACH tablet 1 ea PO DAILY fluticasone propionate [Flonase] 16 GM spray,suspension 1 - 2 spry NS DAILY PRN Qty: 3 loratadine 10 mg tablet 10 mg PO DAILY Qty: 90 4RF Rx Instructions: 1 TAB DAILY meclizine 12.5 mg Tablet 12.5 mg PO TID PRN (Reason: Dizziness) Qty: 20 0RF Hold Instructions: Prescription Finished Patient Comments: pt unable to report last dose, has not taken recently Held hydrochlorothiazide 12.5 mg tablet 12.5 mg PO DAILY Qty: 90 4RF Hold Instructions: Resume on 09/28/23. Resume as per PCP Rx Instructions: 1 TAB DAILY potassium chloride 10 mEq tablet extended release 10 meq PO BID Qty: 180 4RF Hold Instructions: Resume on 09/26/23. Resume as per PCP Rx Instructions: Adam Otto brand medically necessary (it is the only kind he can swallow) Discharge Instructions Referrals: Alfredo Burnett MD [Primary Care Provider] - 09/24/23 9:20 am (F/u in the next 7 days please) Activity:: Activity as Tolerated Equipment/Supplies:: No Equipment Needed Diet:: As Tolerated Discharge Orders Other Ambulatory Orders: Basic Metabolic Panel (Routine) Timeframe: [id number] Facility: [facility] - Location: Laboratory Outpatient - [facility] Ordered By: Erum Benavidez DS: Summary Quality:SDOH Health Related Social Needs: No Data to Display DS: Data Vitals/I&O Vitals and I&O: Vital Signs Temperature 36.3 C L 09/19/23 11:10 Temperature Source Tympanic 09/19/23 11:10 Pulse 58 L 09/19/23 11:10 Pulse Rhythm Regular 09/19/23 08:24 Pulse 71 09/18/23 07:00 Respiratory Rate 14 09/19/23 11:10 Respiratory Effort Normal, Non-Labored 09/19/23 08:24 Respiratory Depth Normal 09/19/23 08:24 Respiratory Pattern Normal 09/19/23 08:24 Blood Pressure 135/78 09/19/23 11:10 Blood Pressure Mean 130 09/18/23 04:12 Pulse Oximetry 97 09/19/23 11:10 Oxygen Delivery Method Room Air 09/19/23 11:10 Oxygen Flow Rate 0 09/19/23 11:10 Pain Level 0 09/19/23 11:10 Intake & Output 09/18/23 09/18/23 09/19/23 11:59 23:59 11:59 Intake Total 1969 / 1969 1400 / 1400 Output Total 100 / 100 100 / 100 Balance 1870 / 1870 1300 / 1300 Intake: IV 1200 / 1200 1000 / 1000 Oral 770 / 770 400 / 400 Output: Urine 100 / 100 100 / 100 Other: Urine Color Yellow Yellow Urine Appearance Clear Clear Cloudy Urine Odor None None Comment Uses bathroom independently. unmeasured void in toilet Stool Characteristics Soft Voiding Methods Toilet Toilet Urinal Data Completed and Pending Labs on day of discharge: Labs from last 24 hours 09/19/23 09/19/23 09/19/23 06:35 06:35 06:35 WBC RBC Hgb Hct MCV MCH MCHC RDW Plt Count MPV Immature Gran % Neutrophils % Lymphocytes % Atypical Lymphs % Monocytes % Eosinophils % Basophils % Metamyelocytes % Nucleated RBC % Absolute Neutrophils Absolute Lymphocytes Absolute Monocytes Absolute Eosinophils Absolute Basophils RBC Morphology Sodium Potassium Chloride Carbon Dioxide Anion Gap BUN Creatinine Est GFR (CKD-EPI 2020) Glucose Calcium Magnesium Total Bilirubin Conjugated Bilirubin AST ALT Alkaline Phosphatase Cancelled Creatine Kinase 273 Total Protein Cancelled 6.9 Albumin Cancelled 3.0 L 09/19/23 09/19/23 09/19/23 06:35 06:35 06:35 WBC RBC Hgb Hct MCV MCH MCHC RDW Plt Count MPV Immature Gran % Neutrophils % Lymphocytes % Atypical Lymphs % Monocytes % Eosinophils % Basophils % Metamyelocytes % Nucleated RBC % Absolute Neutrophils Absolute Lymphocytes Absolute Monocytes Absolute Eosinophils Absolute Basophils RBC Morphology Sodium Potassium Chloride Carbon Dioxide Anion Gap BUN Creatinine Est GFR (CKD-EPI 2020) Glucose Calcium Magnesium Total Bilirubin Conjugated Bilirubin Cancelled AST Cancelled 30 ALT Cancelled 35 Alkaline Phosphatase 68 Creatine Kinase Total Protein Albumin 09/19/23 09/19/23 06:35 06:35 WBC 11.18 H RBC 4.78 Hgb 13.4 L Hct 39.9 L MCV 84 MCH 28.0 MCHC 33.6 RDW 13.1 Plt Count 256 MPV 12.5 H Immature Gran % 0.0 Neutrophils % 51.0 Lymphocytes % 29.0 Atypical Lymphs % 9 Monocytes % 6.0 Eosinophils % 4.0 Basophils % 0.0 Metamyelocytes % 1 Nucleated RBC % 0.0 Absolute Neutrophils 5.70 Absolute Lymphocytes 4.25 H Absolute Monocytes 0.67 Absolute Eosinophils 0.45 Absolute Basophils 0.00 RBC Morphology Normal Sodium 141 Potassium 3.7 Chloride 106 Carbon Dioxide 23.5 Anion Gap 11.5 H BUN 44 H Creatinine 1.6 H D Est GFR (CKD-EPI 2020) 41.96 Glucose 96 Calcium 8.8 Magnesium 2.1 Total Bilirubin Cancelled 0.4 Conjugated Bilirubin 0.1 AST ALT Alkaline Phosphatase Creatine Kinase Total Protein Albumin PFSH All Active Problems (Updated 09/18/23 @ 10:16 by Erum Benavidez APRN) Discharge planning issues (Acute) Contraindication to deep vein thrombosis (DVT) prophylaxis (Acute) UTI (urinary tract infection) (Acute) Hypokalemia (Acute) Pancreatitis (Chronic) Acute kidney injury (Acute) Vomiting (Acute) RANULFO (acute kidney injury) (Acute) BPPV (benign paroxysmal positional vertigo) (Acute) Dizziness (Acute) Hyperplastic colon polyp (Acute) Tubular adenoma of colon (Acute) Diverticulitis (Chronic) Acute GI bleeding (Acute) Ceruminosis (Acute) Dental caries (Acute) Chronic pain syndrome (Chronic) Bladder stone (Acute) Calcium nephrolithiasis (Acute) w/ hydronephrosis and BRIELLE (creat 1.8) Diverticulosis (Acute ~07/2018) Left inguinal hernia (Acute ~07/2018) 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 Allergic rhinitis (Acute) Essential hypertension (Acute 07/17/13) Gastroesophageal reflux (Acute) Hyperlipidemia (Acute) Joint pain (Acute) DJD Kidney stone on left side (Acute 12/18/14) 12/18/14 [facility] stented and removed 07/29/18 WITH HYDRONEPHROSIS Lumbago (Acute) L 5 compression fx; Low back pain (Acute) L 5 compression fx; Neoplasm of unspecified nature of bone, soft tissue, 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) Obstructive sleep apnea syndrome (Acute) severe; CPAP (inital studies 2007 [facility] and [facility]) Skin lesion of cheek (Acute 08/06/15) Medical History HTN (hypertension) Kidney stones Surgical History History of colonoscopy (~08/2022) Open Carpal Tunnel release (08/14/14) LEFT/DR LUIS HERNIA REPAIR X 2 Extraction of cataract B/L Family History Mother Diabetes Essential hypertension Heart disease Father Essential hypertension Personal history of malignant neoplasm COLON/SKIN Heart disease Hyperlipidemia Asthma Maternal Grandmother Essential hypertension Heart disease Stroke Esophageal cancer Sister Essential hypertension Hyperlipidemia Social History Smoking/Tobacco Use Status: Former Tobacco Use tobacco type: pipe and cigars Quit Date: 07/09/59 Tobacco: How many years used: 2 Second Hand Exposure: No Smoking risk assessment performed?: Yes Alcohol Intake: former Drug use: Never Substance use type: does not use Caregiver/Support person: No Household members: none Housing: house Communication Needs: None Pets and animals: No Sexually active: No Do you think of yourself as: straight/heterosexual Current gender identity: male What is your relationship status?: How often do you talk on the phone with friends or family?: three or more times per week How often do you get together with friends or relatives?: three or more times per week How often do you attend lutheran or uatsdin services?: 4 or more times per year Do you belong to any clubs or organized social groups?: no Panel score (0-1 are the most socially isolated patients): 2 What type of physical activity do you participate in: walking Duration: < 15 minutes/day Frequency: 1-2 times per week Barby/Hinduism: None Special barby needs: No Seatbelt use: always Helmet use: No Drive intox or ride w/intox electric 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
--- NOTE | 2023-09-19 13:08 | IN_ITS ---
PT Notes Visit Reasons: RANULFO Physical Therapy Inpatient Initial Evaluation Date: 09/19/2023 Referring Doctor: Erum Benavidez NP PT Orders: PT CONSULT: Safety Consult for D/C Precautions: Fall. Standard. Activity as tolerated. Patient Profile/Admitting Diagnosis: Emmanuel is an 83-year-old male who presented to the ED on 09/17/2023 with complaints of nausea, vomiting and abdominal pain. Patient is admitted to [facility] for continued monitoring of RANULFO, vomiting, and hypokalemia. PMHX: All Active Problems (Updated 09/17/23 @ 21:33 by BRADEN Gamble) Pancreatitis (Chronic) Acute kidney injury (Acute) Vomiting (Acute) RANULFO (acute kidney injury) (Acute) BPPV (benign paroxysmal positional vertigo) (Acute) Dizziness (Acute) Hyperplastic colon polyp (Acute) Tubular adenoma of colon (Acute) Diverticulitis (Chronic) Acute GI bleeding (Acute) Ceruminosis (Acute) Dental caries (Acute) Chronic pain syndrome (Chronic) Bladder stone (Acute) Calcium nephrolithiasis (Acute) w/ hydronephrosis and BRIELLE (creat 1.8) Diverticulosis (Acute ~07/2018) Left inguinal hernia (Acute ~07/2018) 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 stented and removed 07/29/18 WITH HYDRONEPHROSIS Lumbago (Acute) L 5 compression fx; Low back pain (Acute) L 5 compression fx; Neoplasm of unspecified nature of bone, soft tissue, 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) Obstructive sleep apnea syndrome (Acute) severe; CPAP (inital studies 2007 [facility] [address] [facility]) Skin lesion of cheek (Acute 08/06/15) Medical History HTN (hypertension) Kidney stones Surgical History History of colonoscopy (~08/2022) Open Carpal Tunnel release (08/14/14) LEFT/DR LUIS HERNIA REPAIR X 2E xtraction of cataract B/L Social History/Home Situation: Lives alone in a private home. Independent with all aspects of ADLs prior to surgery. Still drives. Equipment Owned/DME: None Subjective: Ready to go home. Did not sleep well last night and is tired but was willing to work with PT. Denied nasusea, dizziness, and abdominal pain throughout. OBJECTIVE: Posture: Good upright posturing Observation: IV access through L UE Mental Status: A and O x 4 Vital Signs: Closely monitored via telemetry ROM: Right Upper Extremity: Shoulder Flexion WFL. Shoulder abduction WFL. Elbow flexion WFL. Wrist flexion WFL. Functional opening and closing of hand WFL. Left Upper Extremity: Shoulder Flexion WFL. Shoulder abduction WFL. Elbow flexion WFL. Wrist flexion WFL. Functional opening and closing of hand WFL. Right Lower Extremity: Hip flexion WFL. Hip abduction WFL. Knee flexion WFL. Ankle dorsiflexion WFL. Ankle plantarflexion WFL. Left Lower Extremity: Hip flexion WFL. Hip abdu Strength: Right Upper Extremity: Shoulder flexors 4/5. Shoulder abductors 4/5. Elbow flexors 5/5. Elbow extensors 5/5. Water Resources Program Director strong. Left Upper Extremity: Shoulder flexors 4/5. Shoulder abductors 4/5. Elbow flexors 5/5. Elbow extensors 5/5. Water Resources Program Director strong. Right Lower Extremity: Hip flexors 4/5. Hip abductors 4/5. Knee flexors 5/5. Knee [id number]/5. Ankle dorsiflexors 4-/5. Ankle plantarflexors 5/5. Left Lower Extremity: Hip flexors 4/5. Hip abductors 4/5. Knee flexors 5/5. Knee [id number]/5. Ankle dorsiflexors 4-/5. Ankle plantarflexors 5/5. Bed Mobility/Transfers: Rolling independent Supine to sit independent Sit to supine independent Sit to stand independent Stand to sit independent Gait: 300 feet independent without assistive device. No SOB. No LOB. Balance: Static Sitting: Good Dynamic Sitting: Good Static Standing: Good Dynamic Standing: Good Special Tests: Mobility Limitations Standardized Measure [facility] AM-PAC 6 clicks Basic Mobility Inpatient Short Form: Raw Score: 24 CMS Score: 0% deficit Informed Consent/Education: Patient was instructed in purpose of PT consult and plan of care. Agreeable to proceed with PT evalaution nad safety recommendations. ASSESSMENT: PT evaluation only. No skilled services recommended at discharge. No equipment needs. Patient is assessed as a [id number] low complexity based on the following: History: 83-year-old male with past medical history as indicated above Examination: As above Presentation: Stable Decision Makin low complexity Goals: N/A. PT evalaution only. Plan of Care/Treatment Plan: N/A. PT evalaution only. DISCHARGE RECOMMENDATIONS: Home with no services [] [X] Home with services. Home when medically cleared by hospitlaist. [] Home with outpatient [] [] SNF for continued rehabilitation [] [] Residential Care [] [] SNF versus LTC based on ability to participate and progress [] TREATMENT CODE/TIME: 87519 x 20 minutes for 1 unit (13:09-13:29). Thank you for the opportunity to participate in the care of this patient. Melisa Sousa PT, DPT, CLT [facility] [place], [place]
--- NOTE | 2023-09-19 14:40 | NUR.NOTE ---
Accessed pt chart to reconcile the EKG done in ED while pt boarding as [place] patient to the order needed to do this. Completed this with Helen Reis. Nursing Note:
--- NOTE | 2023-09-19 15:07 | PGE_ITS ---
Date of Service Date of service: 09/19/23 Time of Service: 15:08 Assessment and Plan Assessment and plan (1) RANULFO (acute kidney injury): Status: Acute Assessment and plan: Most likely pre-renal but with elevated CPK at 733 now 273 ( no urine hyaline casts), will nevertheless look into BUN/Cr ratio Cr 2.7 on admission and now 1.6 Continue IVF LR at 80 cc/hr now Last echo showed LVEF 50-55% Avoid nephrotoxic agents Hold HCTZ CMP in a.m. (2) UTI (urinary tract infection): Status: Acute Assessment and plan: UA completed and C&S negative for UTI Stop Ceftriaxone (3) Vomiting: Status: Acute Assessment and plan: CT abdomen and pelvis: Moderate findings of diffuse enteritis throughout the proximal small bowel. -Stomach and bowel: Moderate-sized sliding-type hiatal hernia containing the gastric fundus. Moderate diverticulosis of the sigmoid colon. Apparent diffuse wall thickening of multiple small bowel loops throughout the abdomen compat ible with enteritis. No evidence of bowel obstruction -Gallbladder and bile ducts: Normal. No calcified stones. No ductal dilation. -Pancreas: Normal. No ductal dilation. No further vomiting but nauseated with advanced diet Requesting oral intake: returning to clear liquids as he was not tolerating regular diet Consider re-imaging if symptoms worsen PRN ondansetron Continue PPI CPK was 733 normalized CMP in AM (4) Hypokalemia: Status: Acute Assessment and plan: Resolved s/p replacement (5) Contraindication to deep vein thrombosis (DVT) prophylaxis: Status: Acute Assessment and plan: On lovenox (6) Discharge planning issues: Status: Acute Assessment and plan: CM to f/u if needs arise PT: Safe for discharge Discussed with Dr. Walton Subjective Subjective Patient reports: no new complaints, still having pain, pain is less, tolerating liquids well, voiding w/o difficulty, flatus, bowel movement, nausea and afebrile; denies feels better, tolerating a regular diet, diarrhea, blood in stool, vomiting, shortness of breath or fever Exam Narrative Exam Narrative: Constitutional The patient is sitting in bed less mobile than the previous day and cooperative during the interview, and without acute distress. Neuro:alert and oriented x 3. No neurological focal deficit Resp: Normal respiratory pattern, clear lung bilaterally Cardio: regular rhythm, S1, S2, positive pulses to all 4 extremities GI: Abdomen is not distended, soft and tender mostly to right sided abdomen, bowel sounds are present : Negative Costovertebral angle tenderness Back/spine/Pelvis: No back tenderness, normal alignment Integumentary: No skin lesions or rash on exposed skin Extremities: strength 5/5 to bilateral lower and upper extremities Psych: RASS 0, congruent mood and normal affect. Objective Last Vital Signs Temp 36.3 C L 09/19/23 11:10 Pulse 58 L 09/19/23 11:10 Resp 14 09/19/23 11:10 BP 135/78 09/19/23 11:10 Pulse Ox 97 09/19/23 11:10 Laboratory Results - last 24 hr 09/19/23 09/19/23 09/19/23 06:35 06:35 06:35 WBC 11.18 H RBC 4.78 Hgb 13.4 L Hct 39.9 L MCV 84 MCH 28.0 MCHC 33.6 RDW 13.1 Plt Count 256 MPV 12.5 H Immature Gran % 0.0 Neutrophils % 51.0 Lymphocytes % 29.0 Atypical Lymphs % 9 Monocytes % 6.0 Eosinophils % 4.0 Basophils % 0.0 Metamyelocytes % 1 Nucleated RBC % 0.0 Absolute Neutrophils 5.70 Absolute Lymphocytes 4.25 H Absolute Monocytes 0.67 Absolute Eosinophils 0.45 Absolute Basophils 0.00 RBC Morphology Normal Sodium 141 Potassium 3.7 Chloride 106 Carbon Dioxide 23.5 Anion Gap 11.5 H BUN 44 H Creatinine 1.6 H D Est GFR (CKD-EPI 2020) 41.96 Glucose 96 Calcium 8.8 Magnesium 2.1 Total Bilirubin 0.4 Cancelled Conjugated Bilirubin 0.1 Cancelled AST 30 ALT Alkaline Phosphatase Creatine Kinase Total Protein Albumin 09/19/23 09/19/23 09/19/23 06:35 06:35 06:35 WBC RBC Hgb Hct MCV MCH MCHC RDW Plt Count MPV Immature Gran % Neutrophils % Lymphocytes % Atypical Lymphs % Monocytes % Eosinophils % Basophils % Metamyelocytes % Nucleated RBC % Absolute Neutrophils Absolute Lymphocytes Absolute Monocytes Absolute Eosinophils Absolute Basophils RBC Morphology Sodium Potassium Chloride Carbon Dioxide Anion Gap BUN Creatinine Est GFR (CKD-EPI 2020) Glucose Calcium Magnesium Total Bilirubin Conjugated Bilirubin AST Cancelled ALT 35 Cancelled Alkaline Phosphatase 68 Cancelled Creatine Kinase 273 Total Protein 6.9 Albumin 09/19/23 09/19/23 06:35 06:35 WBC RBC Hgb Hct MCV MCH MCHC RDW Plt Count MPV Immature Gran % Neutrophils % Lymphocytes % Atypical Lymphs % Monocytes % Eosinophils % Basophils % Metamyelocytes % Nucleated RBC % Absolute Neutrophils Absolute Lymphocytes Absolute Monocytes Absolute Eosinophils Absolute Basophils RBC Morphology Sodium Potassium Chloride Carbon Dioxide Anion Gap BUN Creatinine Est GFR (CKD-EPI 2020) Glucose Calcium Magnesium Total Bilirubin Conjugated Bilirubin AST ALT Alkaline Phosphatase Creatine Kinase Total Protein Cancelled Albumin 3.0 L Cancelled Time Spent with Patient Time Spent with Patient: >50 minutes (60 minutes) Time was spent: preparing to see the patient(eg.review tests), ordering medications,tests, procedures, referring, communicating with other health patient care associate, indepentently interpreting results, counseling the patient and care coordination
--- NOTE | 2023-09-19 16:18 | CHAPLAIN ---
Emmanuel thinks he might be discharged later today, and a neighbor will pick him up. Emmanuel lives alone in [place]. His , Audelia, several years ago, after being hospitalized a few times. Emmanuel's daughter, Teresa, lives in [place] and visits Emmanuel with her kids. Emmanuel also has another daughter and two sons. He loves living in [place] and is an active part of the community. He is a member of the [employer].
[2023-09-19] MEDS: Pantoprazole 40 MG VIAL IVP (20:37)
[2023-09-19] MEDS: cefTRIAXone 1 GM/50 ML BAG IVPB (20:38)
[2023-09-19] MEDS: Normal Saline Flush 10 ML SYR (20:38)
[2023-09-20] MEDS: Lactated Ringers 1,000 ML 125 ML IV (00:43)
[2023-09-20 03:02] VITALS: BP 144/73; PULSE 60; RESP 18; TEMP 35.8; O2SAT 97
[2023-09-20 09:32] LABS: ALT 31 U/L (16-63); AST 24 U/L (15-37); Albumin 2.7 g/dL (3.4-5.0); Alkaline Phosphatase 59 U/L (46-116); Anion Gap 8.8 mmol/L (3-11); BUN 27 mg/dL (7-18); Bilirubin, Total 0.3 mg/dL (0.2-1.0); CO2 24.2 mmol/L (21.0-32.0); CREATININE 1.3 mg/dL (0.70-1.30); Calcium 8.3 mg/dL (8.5-10.1); Chloride 107 mmol/L (98-107); Estimated GFR 53.84 (mL/min/1.73m2); Glucose 94 mg/dL (74-106); Potassium 3.5 mmol/L (3.5-5.1); Sodium 140 mmol/L (136-145); Total Protein 6.1 g/dL (6.4-8.2)
--- NOTE | 2023-09-20 09:39 | CMPROGNOTE_ITS ---
Date of service: 09/19/23 Care Management Progress Note Progress Note Text Progress Note Text: S/O: Emmanuel was lying in bed when meeting with CM. CM reviewedmost recent HIPPA for with Emmanuel, he said he didnt wish to change the information listed. Emmanuel says he looks forward to going home. CM following. A: Emmanuel is an 83 year old male admitted to [facility] 09/17/23 for an RANULFO. P: When medically cleared, Emmanuel will be discharged home with no new services. He will transport home via private vehicle. He will follow up with his PCP and discharge plan of care as prescribed. SDOH(Care Management) Screening Will the Patient Participate in the Screening?: Yes Do you worry about having a steady place to live?: no Problems where you live: no known problems In the past 12 months, have you had to go without electric, gas, oil or water in your home?: no Have you or anyone in your house had to go without enough food to eat?: no Has lack of transportation kept you from medical appointments or from doing things needed for daily living?: no Has anyone in your support network made you feel unsafe for any reason?: no
[2023-09-20 09:40] VITALS: BP 132/66; PULSE 62; RESP 12; TEMP 37.4; O2SAT 97
[2023-09-20] MEDS: Aspirin E.C. 81 MG TABEC PO (09:40)
[2023-09-20] MEDS: Loratidine 10 MG TAB PO (09:40)
[2023-09-20] MEDS: Metoprolol 25 MG TAB PO (09:40)
[2023-09-20] MEDS: Enoxaparin 30 MG/0.3 ML SYR SC (09:40)
[2023-09-20 10:01] LABS: HCT 36.3 % (40.0-50.0); HGB 12.1 g/dL (13.5-17.5); MCH 28.2 pg (27.0-33.0); MCHC 33.3 % (32.0-36.0); MCV 85 fL (80-95); MPV 12.6 fL (8.0-11.0); Platelet Count 233 10^3/uL (130-400); RBC 4.29 10^6/uL (4.36-5.78); RDW 13.2 % (11.8-14.1); RDW-SD 41.1 fL
[2023-09-20 10:02] LABS: Abs Immature Grans 0.52 10^3/uL (0.0-0.06); Absolute Eosinophil Count 0.55 10^3/uL (0.0-0.7); Absolute Lymphocyte Count 2.51 10^3/uL (1.2-3.4); Absolute Monocyte Count 0.97 10^3/uL (0.1-0.8); Absolute Neutrophil Count 6.26 10^3/uL (1.2-6.7); Basophils % 0.9; Immature Grans % 4.8; Monocytes % 8.9; Neutrophils % 57.4
[2023-09-20 10:03] LABS: Diff Comment PLT Morph Reviewed
--- NOTE | 2023-09-20 11:49 | DSE_ITS ---
Date of service: 09/20/23 Time of Service: 11:49 DS: Diagnosis Discharge Diagnosis (1) RANULFO (acute kidney injury): Status: Acute (2) UTI (urinary tract infection): Status: Acute (3) Vomiting: Status: Acute (4) Hypokalemia: Status: Acute Discharge Plan Disposition Patient Disposition: Home Condition: Improving Discharge Details Reason For Visit: RANULFO Admit Date/Time: 09/17/23 21:21 Admit Provider: Josiah Walton Attending Provider: Josiah Walton Primary Care Provider: Alfredo Burnett Hospital Course Hospital Course: This 83-year-old male who lives at home independently presented to the emergency department with 5 to 6 days of poor oral intake due to nausea and vomiting. His workup in the emergency department did show acute kidney injury thought to be prerenal due to his symptoms. He received IV fluids and was admitted to the hospitalist services for further management. He was also given ceftriaxone for suspicion of a urinary tract infection but urine culture was unremarkable so this was discontinued. CT of his abdomen and pelvis did show diffuse enteritis. His diet was advanced as his symptoms improved. Also noted on admission was an elevated CPK at 733 which also normalized. Now he is feeling at his baseline tolerating a regular diet feels ready for discharged home. He declined any home health services and will follow-up with his primary care provider outpatient. His creatinine did normalize from 3.2 on admission to 1.3. His hydrochlorothiazide remained on hold until he follows up outpatient with his primary care provider Discharge discussed with Dr. Palacio. Home Meds and New Rx's Prescriptions: Continued metoprolol tartrate 25 mg tablet 25 mg PO BID Qty: 180 4RF Rx Instructions: 1 TAB BID omeprazole 20 mg capsule,delayed release(DR/EC) 20 mg PO QAM Qty: 90 4RF Rx Instructions: 1 TAB QAM simvastatin 20 mg tablet 20 mg PO HS Qty: 90 4RF Rx Instructions: 1 TAB hs tramadol 50 mg tablet 50 mg PO Q6H PRN (Reason: pain) Qty: 50 0RF Rx Instructions: may take along with tylenol or NSAIDs flu vac qs 2020-(6 ms up) CD 60 mcg (15 mcg x 4)/0.5 mL suspension 0.5 ml IM ONCE Qty: 0.5 0RF aspirin [Ecotrin Low Strength] 81 MG tablet,delayed release (DR/EC) 81 mg PO DAILY Hold Instructions: Resume on 07/24/22. Resume if no bleeding x 1 week saw palmetto 450 MG capsule 450 mg PO BID CENTRUM SILVER ULTRA MEN'S TAB 1 EACH tablet 1 ea PO DAILY fluticasone propionate [Flonase] 16 GM spray,suspension 1 - 2 spry NS DAILY PRN Qty: 3 loratadine 10 mg tablet 10 mg PO DAILY Qty: 90 4RF Rx Instructions: 1 TAB DAILY potassium chloride 10 mEq tablet extended release 10 meq PO BID Qty: 180 4RF Hold Instructions: Resume on 09/26/23. Resume as per PCP Rx Instructions: Klor Con brand medically necessary (it is the only kind he can swallow) meclizine 12.5 mg Tablet 12.5 mg PO TID PRN (Reason: Dizziness) Qty: 20 0RF Hold Instructions: Prescription Finished Patient Comments: pt unable to report last dose, has not taken recently Held hydrochlorothiazide 12.5 mg tablet 12.5 mg PO DAILY Qty: 90 4RF Hold Instructions: Resume on 09/28/23. Resume as per PCP Rx Instructions: 1 TAB DAILY Discharge Instructions Instructions: Acute Kidney Injury (DC) Stand Alone Forms: Nursing Discharge Form Referrals: Alfredo Burnett MD [Primary Care Provider] - 09/24/23 9:20 am () Activity:: Activity as Tolerated Equipment/Supplies:: No Equipment Needed Diet:: As Tolerated Discharge Orders Discharge Orders: Discharge Order (Routine); Ordered 09/20/23 Ordered By: Teresa Ricci Other Ambulatory Orders: Basic Metabolic Panel (Routine) Timeframe: [id number] Facility: [facility] - Location: Laboratory Outpatient - [facility] Ordered By: Erum Benavidez Discharge Data Discharge Date/Time-TO BE ENTERED AT DEPARTURE: 09/20/23 15:21 DS: Summary Time Spent with Patient providing and/or coordinating discharge services: Less than 30 minutes Status at Discharge Functional status at discharge: uses cane/walker Overall status at discharge: patient is progressing back to baseline Mental Status: mental status grossly normal Speech and Movement: speech and movement normal Mood: congruent mood Affect: normal affect Quality:SDOH Health Related Social Needs: No Data to Display Exam Narrative Exam Narrative: Elderly male of stated age no acute distress head is atraumatic oral mucosa slightly dry neck is supple no JVD cardiovascular regular rate and rhythm his respirations even and unlabored diminished at bases abdomen round soft nontender moves all extremities skin with no rashes neurologic he is awake alert oriented no focal deficits Psych Mental Status: mental status grossly normal Speech and Movement: speech and movement normal Mood: congruent mood Affect: normal affect DS: Data Vitals/I&O Vitals and I&O: Vital Signs Temperature 37.4 C 09/20/23 09:40 Temperature Source Tympanic 09/20/23 09:40 Pulse 62 09/20/23 09:40 Pulse Rhythm Regular 09/20/23 11:37 Pulse 71 09/18/23 07:00 Respiratory Rate 12 09/20/23 09:40 Respiratory Effort Normal, Non-Labored 09/20/23 11:37 Respiratory Depth Normal 09/20/23 11:37 Respiratory Pattern Normal 09/20/23 11:37 Blood Pressure 132/66 09/20/23 09:40 Blood Pressure Mean 130 09/18/23 04:12 Pulse Oximetry 97 09/20/23 09:40 Oxygen Delivery Method Room Air 09/20/23 09:40 Oxygen Flow Rate 0 09/20/23 09:40 Pain Level 0 09/20/23 03:02 Intake & Output 09/19/23 09/19/23 09/20/23 11:59 23:59 11:59 Intake Total 1400 / 4740 3340 / 4740 2450 / 2450 Output Total 100 / 150 50 / 150 Balance 1300 / 4590 3290 / 4590 2450 / 2450 Intake: IV 1000 / 4000 3000 / 4000 2000 / 2000 Oral 400 / 740 340 / 740 450 / 450 Output: Urine 100 / 150 50 / 150 Other: Urine Color Yellow Yellow Urine Appearance Cloudy Clear Clear Urine Odor None Comment unmeasured void in toilet post void residual pt voided x1 Stool Characteristics Soft Voiding Methods Urinal Urinal Toilet Data Completed and Pending Labs on day of discharge: Labs from last 24 hours 09/20/23 09/20/23 06:09 05:35 WBC 10.90 H RBC 4.29 L Hgb 12.1 L Hct 36.3 L MCV 85 MCH 28.2 MCHC 33.3 RDW 13.2 Plt Count 233 MPV 12.6 H Immature Gran % 4.8 Neutrophils % 57.4 Lymphocytes % 23.0 Monocytes % 8.9 Eosinophils % 5.0 Basophils % 0.9 Nucleated RBC % 0.0 Absolute Neutrophils 6.26 Absolute Lymphocytes 2.51 Absolute Monocytes 0.97 H Absolute Eosinophils 0.55 Absolute Basophils 0.10 Sodium 140 Cancelled Potassium 3.5 Cancelled Chloride 107 Cancelled Carbon Dioxide 24.2 Cancelled Anion Gap 8.8 Cancelled BUN 27 H Cancelled Creatinine 1.3 Cancelled Est GFR (CKD-EPI 2020) 53.84 Cancelled Glucose 94 Cancelled Calcium 8.3 L Cancelled Total Bilirubin 0.3 AST 24 ALT 31 Alkaline Phosphatase 59 Total Protein 6.1 L Albumin 2.7 L 09/19/23 12:44 Urine - Clean Catch Urine Culture - Pending Preliminary micro results at discharge 09/19/23 12:44 Urine Culture - Pending Urine - Clean Catch PFSH All Active Problems (Updated 09/21/23 @ 00:03 by DAVID JERRY) UTI (urinary tract infection) (Acute) Hypokalemia (Acute) Pancreatitis (Chronic) Acute kidney injury (Acute) Vomiting (Acute) RANULFO (acute kidney injury) (Acute) BPPV (benign paroxysmal positional vertigo) (Acute) Dizziness (Acute) Hyperplastic colon polyp (Acute) Tubular adenoma of colon (Acute) Diverticulitis (Chronic) Acute GI bleeding (Acute) Ceruminosis (Acute) Dental caries (Acute) Chronic pain syndrome (Chronic) Bladder stone (Acute) 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) Skin lesion of cheek (Acute 08/06/15) Medical History HTN (hypertension) Kidney stones Surgical History History of colonoscopy (~08/2022) Open Carpal Tunnel release (08/14/14) LEFT/DR LUIS HERNIA REPAIR X 2 Extraction of cataract B/L Family History Mother Diabetes Essential hypertension Heart disease Father Essential hypertension Personal history of malignant neoplasm COLON/SKIN Heart disease Hyperlipidemia Asthma Maternal Grandmother Essential hypertension Heart disease Stroke Esophageal cancer Sister Essential hypertension Hyperlipidemia Social History Smoking/Tobacco Use Status: Former Tobacco Use tobacco type: pipe and cigars Quit Date: 07/09/59 Tobacco: How many years used: 2 Second Hand Exposure: No Smoking risk assessment performed?: Yes Alcohol Intake: former Drug use: Never Substance use type: does not use Caregiver/Support person: No Household members: none Housing: house Communication Needs: None Pets and animals: No Sexually active: No Do you think of yourself as: straight/heterosexual Current gender identity: male What is your relationship status?: How often do you talk on the phone with friends or family?: three or more times per week How often do you get together with friends or relatives?: three or more times per week How often do you attend adventist or caodaism services?: 4 or more times per year Do you belong to any clubs or organized social groups?: no Panel score (0-1 are the most socially isolated patients): 2 What type of physical activity do you participate in: walking Duration: < 15 minutes/day Frequency: 1-2 times per week Barby/Rastafari: None Special barby needs: No Seatbelt use: always Helmet use: No Drive intox or ride w/intox pharmacy delivery 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
[2023-09-20 13:55] VITALS: BP 132/78; PULSE 62; RESP 15; TEMP 36.6; O2SAT 98
[2023-09-20 15:01] VITALS: BP 125/73; PULSE 59; RESP 16; TEMP 36.8; O2SAT 96
== END 2023-09-20 15:21 | disposition home or self-care (01) | DRG 684 ==
LOC: ER 09-18 07:19 → MS 09-18 07:57
PROVIDERS: Hospitalist; Nurse Practitioner Acute Care; Admitting Provider Internal Medicine; Emergency Provider Physician Assistant; PCP Family Medicine; Visit Provider Internal Medicine
DX: N17.9 Acute kidney failure, unspecified (principal); K52.9 Noninfective gastroenteritis and colitis, unspecified; R11.10 Vomiting, unspecified; I10 Essential (primary) hypertension; E78.5 Hyperlipidemia, unspecified; M54.50 Low back pain, unspecified; G47.33 Obstructive sleep apnea (adult) (pediatric); K21.9 Gastro-esophageal reflux disease without esophagitis; N21.0 Calculus in bladder; G89.4 Chronic pain syndrome; H81.10 Benign paroxysmal vertigo, unspecified ear; I25.10 Atherosclerotic heart disease of native coronary artery without angina pectoris; Z95.5 Presence of coronary angioplasty implant and graft; I25.2 Old myocardial infarction; M54.9 Dorsalgia, unspecified; K57.30 Diverticulosis of large intestine without perforation or abscess without bleeding; J30.9 Allergic rhinitis, unspecified; E87.6 Hypokalemia
CPT/HCPCS: 00123; 36415; 80048; 80053; 80076; 82550; 83690; 84145; 85652; 96361; 96365; 96372; 96375; 97161; 99285; 74176; 81003; 81015; 83605; 83735; 83880; 84484; 85025; 86140; 87086; 99223; 99232; 99233; 99238; J0696; J1650; J2405; J2470; J3480

== ENCOUNTER 2023-10-03 16:31 | Outpatient (CLI) | payer MEDICARE, OTHER, SELFPAY ==
[2023-10-03 16:23] LABS: Anion Gap 9.5 mmol/L (3-11); BUN 10 mg/dL (7-18); CO2 28.5 mmol/L (21.0-32.0); CREATININE 1.2 mg/dL (0.70-1.30); Calcium 9.2 mg/dL (8.5-10.1); Chloride 103 mmol/L (98-107); Estimated GFR 59.26 (mL/min/1.73m2); Glucose 96 mg/dL (74-106); Potassium 3.3 mmol/L (3.5-5.1); Sodium 141 mmol/L (136-145)
== END 2023-10-03 16:32 | disposition home or self-care (01) ==
LOC: LBO 16:32
PROVIDERS: PCP Family Medicine; Visit Provider Nurse Practitioner Acute Care
DX: N17.9 Acute kidney failure, unspecified (principal)
CPT/HCPCS: 36415; 80048

== ENCOUNTER 2024-08-01 00:46 | Outpatient (CLI) | payer MEDICARE, OTHER, SELFPAY ==
--- NOTE | 2024-08-01 07:00 | DI.US_ITS ---
Exam(s) US RENAL EXAM: US RENAL CLINICAL HISTORY: monitoring bladder stone,CALCIUM NEPHROLITHIASIS,N21.0 TECHNIQUE: Ultrasound of both kidneys performed using standard protocol. COMPARISON: CT CT ABDOMEN PELVIS WO from 09/17/2023 FINDINGS: RIGHT KIDNEY: Measures 11 cm in length. No cysts evident. Normal cortical thickness and corticomedullary differenti ation .No solid masses No intrarenal calculi nor hydronephrosis. LEFT KIDNEY: Measures 11.8 cm in length. A small 1.3 cm benign cyst in the lateral cortex of the left kidney. No solid renal masses. Normal cortical thickness and corticomedullary differentiaion. . No obvious int rarenal calculi nor hydonephrosis. URINARY BLADDER: Prevoid volume is 27 cc Postvoid volume not performed. There are multiple shadowing calculi again seen in the urinary bladder lumen, as evident on prior CT scan September 2023. Ureterovesical jets: Both not identified. IMPRESSION: 1. Multiple bladder calculi again noted. The remainder of the bladder is difficult to evaluate patrick use of his only 27 cc of urine bladder loop 2. No new significant ultrasound findings the kidneys. Please note that prior CT scan of 09/18/2023 revealed a 4 millimeter calculus in left kidney. This was not seen on today's ultrasound exam. The re there are no ultrasound visible calculi in either kidney on today's study and there is no ascites. DATA REPOSITORY:
== END 2024-08-01 01:06 ==
LOC: DI 00:46
PROVIDERS: PCP Family Medicine; Visit Provider Nurse Practitioner Family
DX: N21.0 Calculus in bladder (principal)
CPT/HCPCS: 76770

== ENCOUNTER → 2024-08-06 14:49 | Outpatient (BNVA) | payer MEDICARE, OTHER, SELFPAY | PROVIDERS: PCP Family Medicine; Visit Provider Nurse Practitioner Gerontology | DX: N20.0 Calculus of kidney (principal); N21.0 Calculus in bladder | CPT/HCPCS: 81003; 99213 ==